=== PATIENT | male | born 1970 | race Caucasian/White ===

== ENCOUNTER → 2020-02-11 12:33 | Outpatient (BNVA) | payer SELFPAY | PROVIDERS: Visit Provider Internal Medicine | DX: Z13.89 Encounter for screening for other disorder (principal) | CPT/HCPCS: 99211 ==

== ENCOUNTER → 2020-03-10 12:55 | Outpatient (BNVA) | payer SELFPAY | PROVIDERS: Visit Provider Internal Medicine | DX: Z76.89 Persons encountering health services in other specified circumstances (principal) ==

== ENCOUNTER → 2020-04-13 14:31 | Outpatient (BNVA) | payer OTHER, SELFPAY | PROVIDERS: PCP Internal Medicine; Visit Provider Internal Medicine | DX: Z76.89 Persons encountering health services in other specified circumstances (principal) ==

== ENCOUNTER → 2020-05-27 11:28 | Outpatient (BNVA) | payer OTHER, SELFPAY | PROVIDERS: Visit Provider Internal Medicine | DX: Z51.81 Encounter for therapeutic drug level monitoring (principal) | CPT/HCPCS: 80305 ==

== ENCOUNTER → 2020-06-24 13:40 | Outpatient (BNVA) | payer OTHER, SELFPAY | PROVIDERS: Visit Provider Internal Medicine ==

== ENCOUNTER → 2020-08-19 10:24 | Outpatient (BNVA) | payer OTHER, SELFPAY | PROVIDERS: Visit Provider Internal Medicine | DX: F11.99 Opioid use, unspecified with unspecified opioid-induced disorder (principal) | CPT/HCPCS: 80305 ==

== ENCOUNTER → 2020-09-20 09:26 | Outpatient (BNVA) | payer OTHER, SELFPAY | PROVIDERS: PCP Internal Medicine; Visit Provider Internal Medicine | DX: Z51.81 Encounter for therapeutic drug level monitoring (principal); F11.99 Opioid use, unspecified with unspecified opioid-induced disorder | CPT/HCPCS: 80305 ==

== ENCOUNTER → 2020-10-26 10:05 | Outpatient (BNVA) | payer OTHER, SELFPAY | PROVIDERS: PCP Internal Medicine; Visit Provider Internal Medicine | DX: F11.99 Opioid use, unspecified with unspecified opioid-induced disorder (principal); Z51.81 Encounter for therapeutic drug level monitoring | CPT/HCPCS: 80305; 96372; Q9992 ==

== ENCOUNTER → 2020-11-30 09:44 | Outpatient (BNVA) | payer OTHER, SELFPAY | PROVIDERS: Visit Provider Internal Medicine | DX: F11.90 Opioid use, unspecified, uncomplicated (principal); Z51.81 Encounter for therapeutic drug level monitoring | CPT/HCPCS: 80305; 96372 ==

== ENCOUNTER → 2021-01-10 10:06 | Outpatient (BNVA) | payer OTHER, SELFPAY | PROVIDERS: Visit Provider Internal Medicine | DX: F11.90 Opioid use, unspecified, uncomplicated (principal) | CPT/HCPCS: 80305; 96372 ==

== ENCOUNTER 2021-05-22 03:15 | Emergency (ER) | payer OTHER, SELFPAY ==
[2021-05-22 03:22] VITALS: BMI 30.9
[2021-05-22 03:37] VITALS: BP 120/84; PULSE 94; RESP 16; TEMP 37.1; O2SAT 96
--- NOTE | 2021-05-22 03:56 | PC.NURSE ---
PATIENT REFUSING TO SPEAK WITH PROVIDER STATING THAT HE WANTS A COPY OF HIS MEDICAL RECORDS AND A COPY OF THE SECTION 12 HOLDING HIM HERE. REFUSING TO TALK TO STAFF MEMBERS UNTIL DEMANDS ARE MET. PROVIDER STATING WILL REATTEMPT EVALUATION WITH PATIENT
[2021-05-22 04:00] VITALS: RESP 16
--- NOTE | 2021-05-22 04:06 | ED.PSYCH ---
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 On speaking with the patient he states that he was recently fired for ?no reason? and since that time has been feeling upset about the situation and then was drinking yesterday. He states that all he was trying to do was speak with his because he wanted to discuss things with her and that she just kept telling him just go to sleep. Patient states that his had left the house and so they were texting. He states that when she told him to go to sleep in he realized that she was not going to talk to him he became upset and states that he said ?a, B, and C? and then the next thing he knew the police were at his door. Patient states that he made comments because he was upset and now he feels better and he just wants to go home and go to sleep. He states that he ?knows his rights and knows that the Section 12 that was 1st given was only for transport and that he wants to go home?. I explained to him that since he had made statements regarding wanting to hurt himself that I would like for him to stay until crisis concede him in the morning. Patient became increasingly upset and continue to repeat ?I know my rights, I want a see a copy of that Section 12?. When attempts were made to explain to him that we needed to exercise additional precautions, he stated he no longer wanted to speak to me and when asked about his past medical history or allergies he declined to answer. On review of the triage note as well as the Section 12 it is noted that the text that he sent his stated ?I hate you wall and I am going to put a 16 gauge in my BRIANA and bleed out?. In addition, it is reported that patient was aggressive with the police when they arrived. Of note, this aggression with the police was not noticed on arrival here to the emergency department. Related Data Home Medications Medication Instructions Recorded Confirmed dulaglutide 1.5 mg/0.5 mL 1.5 mg SUBCUT QWEEK 08/19/20 05/22/21 subcutaneous pen injector escitalopram oxalate 20 mg tablet 20 mg PO QAM 08/19/20 05/22/21 labetalol 200 mg tablet 200 mg PO BID 08/19/20 05/22/21 metformin 500 mg tablet 1,000 mg PO BID 08/19/20 05/22/21 trazodone 100 mg tablet 200 mg PO BEDTIME PRN 08/19/20 09/21/20 Previous Rx's Medication Instructions Recorded buprenorphine 8 mg-naloxone 2 mg See Rx Instructions SUBLINGUAL 08/30/20 sublingual film (Suboxone) DAILY 30 Days #30 ea buprenorphine 300 mg/1.5 mL 300 mg (1.5 mL) SUBCUT ONCE 30 09/20/20 solution,exten.rel.subcutaneous Days #1.5 ml syringe (Sublocade) buprenorphine 100 mg/0.5 mL 100 mg (0.5 mL) SUBCUT ONCE 30 01/10/21 solution,exten.rel.subcutaneous Days #0.5 ml syringe (Sublocade) Allergies Allergy/AdvReac Type Severity Reaction Status Date / Time No Known Allergies Allergy Verified 01/10/21 10:20 [No Known Allergies*] Review of Systems Review of Systems: Pertinent positives and negatives as stated in HPI 10 point review of systems is otherwise negative. PMFSH Past Medical History Source: nursing notes reviewed Medical History Opioid use disorder Social History Social History Alcohol intake: current Patient Tobacco Use Status: Never used Tobacco Use of substances other than those prescribed or required for medical reasons: No Advance Directives: No Physical Exam Vital Signs: Vital Signs: Last Vital Signs Temp 98.7 F 05/22/21 03:37 Pulse 94 05/22/21 03:37 Resp 16 05/22/21 06:00 BP 120/84 05/22/21 03:37 Pulse Ox 96 05/22/21 03:37 BMI result Body Mass Index 30.9 VITAL SIGNS: Reviewed. GENERAL: Well developed, well nourished, in no acute distress. HEAD: Normocephalic/atraumatic, LUNGS: No audible wheeze, no tachypnea, SpO2<96> CARDIOVASCULAR: Regular rate and rhythm, no JVD or lower extremity edema. ABDOMEN: non-distended MUSCULOSKELETAL: No tenderness, deformities, or effusions noted on gross inspection. EXTREMITIES: No cyanosis, clubbing or edema. SKIN: Inspection of the skin reveals no rashes NEUROLOGIC: Alert and oriented x 4 Psych: Normal affect Course Course Course Narrative: 50-year-old male with history and clinical presentation consistent with recent job loss, alcohol consumption, and threats of suicide. Given the situation in its entirety the decision was made to Section 12 the patient as this is felt to be a highly volatile situation especially given the fact the patient has been consuming alcohol. Physical exam was limited due to patient not wishing to communicate further. Patient was placed on a 1:1. Behavioral consult was placed. Reevaluation(s) Reevaluation #1: Patient placed in physician observation because the patient needed more time for evaluation by crisis. At the time observation was started the patient's vital signs were stable, patient is alert and oriented, neuro: Nonfocal, CV RRR, lungs clear Time: 03:35 Discharge Plan Discharge Clinical Impression: Suicidal ideation, Alcohol intoxication Patient Disposition: Still a Patient Prescriptions: No Action buprenorphine-naloxone [Suboxone] 8-2 mg film See Rx Instructions film sublingual DAILY 30 Days Qty: 30 1RF Rx Instructions: escitalopram oxalate 20 mg tablet 20 mg PO QAM 0RF metformin 500 mg tablet 1,000 mg PO BID 0RF trazodone 100 mg tablet 200 mg PO BEDTIME PRN0RF labetalol 200 mg tablet 200 mg PO BID 0RF Trulicity 1.5 mg/0.5 mL pen injector 1.5 mg subcut QWEEK 0RF Sublocade 300 mg/1.5 mL solution, extended rel syringe 300 mg subcut ONCE 30 Days Qty: 1.5 1RF Sublocade 100 mg/0.5 mL solution, extended rel syringe 100 mg subcut ONCE 30 Days Qty: 0.5 5RF
--- NOTE | 2021-05-22 04:08 | PC.NURSE ---
PATIENT REFUSING BLOOD WORK AND CARE AT THIS TIME. A SITTER IS IN PLACE FOR SAFETY.
[2021-05-22 06:00] VITALS: RESP 16
--- NOTE | 2021-05-22 06:16 | PC.NURSE ---
PATIENT CONTINUES TO REFUSE CARE. PT IS ALERT. ORDERS FOR CARE TEAM CONSULT AND SMART SHEET FOR BHN EVAL SENT. PATIENT CONTNIUES T OREFUSE LAB WORK. SITTTER IN PLACE
[2021-05-22 08:00] VITALS: RESP 16
[2021-05-22 08:04] LABS: MANUAL DIFF FLAG NO
[2021-05-22 08:10] LABS: Basophils Percent Auto 0.4 % (0-2); Eosinophils Absolute Auto 0.3 X10*3/uL (0.0-0.4); Eosinophils Percent Auto 3.4 % (0-4); Hematocrit 39.4 % (42.0-52.0); Hemoglobin 13.6 g/dl (14.0-18.0); Imm Gran Abs Auto 0.02 X10*3/uL (0.00-0.03); Imm Gran Pct Auto 0.3 % (0.0-0.4); Lymphocytes Absolute Auto 3.3 X10*3/uL (1.2-4.9); Lymphocytes Percent Auto 45.1 % (20-40); Mean Corpuscular HGB Conc 34.5 g/dl (31.0-36.0); Mean Corpuscular Hemoglobin 30.2 pg (27.0-33.0); Mean Corpuscular Volume 87.6 fL (80.0-98.0); Mean Platelet Volume 9.5 fL (9.4-12.4); Monocytes Absolute Auto 0.5 X10*3/uL (0.1-1.2); Monocytes Percent Auto 7.4 % (2-11); Neutrophils Absolute Auto 3.2 x10*3/uL (2.0-8.3); Neutrophils Percent Auto 43.4 % (45-73); Platelet Count 137 X10*3/uL (160-400); Red Cell Distribution Width 13.2 % (11.0-16.0); White Blood Count 7.3 X10*3/uL (4.8-10.8)
[2021-05-22 08:21] LABS: COVID-19 Test Negative (Negative)
[2021-05-22 08:25] LABS: Alanine Aminotransferase 24 U/L (0-40); Albumin Level 4.6 g/dL (3.5-5.0); Alkaline Phosphatase 58 U/L (39-117); Anion Gap 12 (12-20); Aspartate Amino Transferase 38 U/L (5-37); Bilirubin Direct 0.2 mg/dL (0.0-0.5); Bilirubin Total 0.4 mg/dL (0.0-1.0); Blood Urea Nitrogen 15 mg/dL (9-16); Calcium 9.5 mg/dL (8.4-10.2); Carbon Dioxide 28 mmol/L (22-29); Chloride 105 mmol/L (96-108); Estimated Glomerular Filt Rate > 60; Glucose Random 95 mg/dL (60-115); Potassium 4.2 mmol/L (3.3-5.1); Sodium 141 mmol/L (135-145); Total Protein 7.8 g/dL (6.5-8.0)
== END 2021-05-22 10:45 | disposition home or self-care (01) ==
PROVIDERS: Emergency Medicine; Emergency Provider Student in an Organized Health Care Education/Training Program
DX: F10.129 Alcohol abuse with intoxication, unspecified (principal); Y90.8 Blood alcohol level of 240 mg/100 ml or more; R45.851 Suicidal ideations; Z20.822 Contact with and (suspected) exposure to COVID-19; Z79.899 Other long term (current) drug therapy
CPT/HCPCS: 80048; 80076; 85025; 87635; 99285

== ENCOUNTER 2024-01-05 22:29 | Inpatient (IN) | payer OTHER, SELFPAY ==
--- NOTE | 2024-01-05 | ECG_ITS ---
Test Reason : overdose Blood Pressure : / mmHG Vent. 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
[2024-01-05 22:46] VITALS: BP 146/90; BP 150/76; PULSE 102; PULSE 82; RESP 20; TEMP 37.2; O2SAT 95; O2SAT 98; BMI 35.3
[2024-01-05 22:52] LABS: MANUAL DIFF FLAG NO
[2024-01-05 22:54] LABS: Basophils Percent Auto 0.4 % (0-2); Eosinophils Absolute Auto 0.2 X10*3/uL (0.0-0.4); Eosinophils Percent Auto 2.6 % (0-4); Hematocrit 42.7 % (42.0-52.0); Hemoglobin 15.9 g/dl (14.0-18.0); Imm Gran Abs Auto 0.02 X10*3/uL (0.00-0.03); Imm Gran Pct Auto 0.3 % (0.0-0.4); Lymphocytes Absolute Auto 2.8 X10*3/uL (1.2-4.9); Lymphocytes Percent Auto 40.5 % (20-40); Mean Corpuscular HGB Conc 37.2 g/dl (31.0-36.0); Mean Corpuscular Hemoglobin 31.6 pg (27.0-33.0); Mean Corpuscular Volume 84.9 fL (80.0-98.0); Mean Platelet Volume 10.5 fL (9.4-12.4); Monocytes Absolute Auto 0.6 X10*3/uL (0.1-1.2); Monocytes Percent Auto 7.9 % (2-11); Neutrophils Absolute Auto 3.3 x10*3/uL (2.0-8.3); Neutrophils Percent Auto 48.3 % (45-73); Platelet Count 164 X10*3/uL (160-400); Red Blood Count 5.03 X10*6/uL (4.60-5.80); White Blood Count 6.9 X10*3/uL (4.8-10.8)
[2024-01-05 23:16] LABS: Acetaminophen LAB < 3 mcg/mL (<30); Salicylate < 5.0 mg/dL (15-30)
[2024-01-05 23:17] LABS: Alanine Aminotransferase 35 U/L (0-40); Albumin Level 4.7 g/dL (3.5-5.0); Alkaline Phosphatase 69 U/L (39-117); Anion Gap 21 (12-20); Aspartate Amino Transferase 32 U/L (5-37); Bilirubin Total 0.2 mg/dL (0.0-1.0); Blood Urea Nitrogen 18 mg/dL (9-16); Calcium 9.1 mg/dL (8.4-10.2); Carbon Dioxide 20 mmol/L (22-29); Chloride 102 mmol/L (96-108); Creatinine Clr Calc Pharmacy 73.4; Estimated Glomerular Filt Rate 47; Ethanol 157 mg/dL; Glucose Random 353 mg/dL (60-115); Potassium 4.1 mmol/L (3.3-5.1); Sodium 139 mmol/L (135-145); Total Protein 8.6 g/dL (6.5-8.0)
[2024-01-05 23:22] VITALS: BP 119/56; PULSE 103; RESP 18; O2SAT 96
--- NOTE | 2024-01-05 23:45 | ED_ITS ---
HPI - Overdose General Chief Complaint: Overdose Stated Complaint: SI,ETOH,trazadone,&labatolol unkwn amounts, sec 12 Time Seen by Provider: 01/05/24 23:30 Source: patient Mode of arrival: EMS Limitations: no limitations History of Present Illness ED Provider: Dr. Reji Funes HPI Narrative: 53-year-old male with a history of insulin-dependent diabetes mellitus, hypertension, GERD, depression, anxiety he was brought to emergency department on a section 12 for suicidal attempt by prescription medication overdose and suicide by police. The patient states that he was been under increased stress for months secondary to social stressors and work stressors. 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 He states that yesterday was his birthday and he had a very good day. He states that today he was having a good day and wanted to do some things with his grandchildren but his disagreed with his plan. He states this made him upset . He states he then said some things to his that he regrets but he does not want to repeat the statements at this time. He then left and started drinking alcohol. He states that he was trying to contact his but his phone calls kept going to [employer] . He states that this push his buttons and made him very upset. When he got home, he took a bottle of his [id number]-nw-kje's trazodone which were 50 mg pills . He states that he tipped the bottle into his mouth and took a big swallow of whiskey. He states that he coughed up most of the pills. Initially it was reported that he may took an overdose of labetalol 200 mg pills as well but he states he did not take this medication. He then took a shovel and smashed up his house breaking multiple pieces of glass.. He states that he did step on some glass, he feels like there is glass in his left heel. He then took a knife and went outside. He states his intention was to be shot by the police because he wanted to . He states that he recognized the police officers and these were office that he worked with so he changed his mind. However, he would not drop the knife and the police shot him in the left lower chest/upper abdomen with a ellis bag gun. He states that this did not cause him drop the knife, it made him angry and he walked back inside his home. He eventually surrendered to the police and was brought to emergency department on a Section 12. Patient states that he does take insulin for his diabetes but he was noncompliant. He states that his glucose is usually in the 300-400 range. The patient does drink alcohol on a regular basis and states that he will drink at least a 6 pack of beer on days when he was not working. 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 Patient states that he was remorseful at this time and does want to get help for his depression anxiety and suicidal ideation. Related Data Home Medications ?Medication ?Instructions ?Recorded ?Confirmed dulaglutide 1.5 mg/0.5 mL 1.5 mg subcut QWEEK 08/19/20 05/22/21 subcutaneous pen injector escitalopram oxalate 20 mg tablet 20 mg PO QAM 08/19/20 05/22/21 labetalol 200 mg tablet 200 mg PO BID 08/19/20 05/22/21 metformin 500 mg tablet 1,000 mg PO BID 08/19/20 05/22/21 trazodone 100 mg tablet 200 mg PO BEDTIME PRN 08/19/20 09/21/20 Previous Rx's ?Medication ?Instructions ?Recorded buprenorphine 8 mg-naloxone 2 mg See Rx Instructions sublingual 08/30/20 sublingual film (Suboxone) DAILY 30 days #30 ea buprenorphine 300 mg/1.5 mL 300 mg (1.5 mL) subcut ONCE 30 09/20/20 solution,exten.rel.subcutaneous days #1.5 mL syringe (Sublocade) buprenorphine 100 mg/0.5 mL 100 mg (0.5 mL) subcut ONCE 30 01/10/21 solution,exten.rel.subcutaneous days #0.5 mL syringe (Sublocade) Allergies Allergy/AdvReac Type Severity Reaction Status Date / Time No Known Allergies Allergy Verified 01/05/24 22:53 [No Known Allergies*] Review of Systems 2 Review of Systems: Yes all other systems are reviewed and are negative [facility] Past Medical History [facility] Narrative: Social history: He was . 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 He denies tobacco use. He does drink alcohol on a regular basis and drinks up to a 6 pack of beer per day with other alcoholic beverages as well. He does have a history of oxycodone addiction 3 years prior but he states that he was no longer addicted to this medication. He states that he stopped using intranasal cocaine several months ago. He does occasionally take a marijuana gummy. He does admit to drinking alcohol this evening. Medical History Opioid use disorder Social History Social History Alcohol intake: current Alcohol type: beer, wine and hard liquor Patient Tobacco Use Status: Never used Tobacco Smoked in Last 30 Days: Yes Use of substances other than those prescribed or required for medical reasons: No Advance Directives: No Advance Directives Information Provided: Yes Do you have a plan to hurt others: No Plan Physical Exam 2 Vital Signs: Vital Signs: Last Vital Signs Temp 98.1 F 01/06/24 05:20 Pulse 88 01/06/24 05:20 Resp 17 01/06/24 05:20 BP 127/78 01/06/24 05:20 Pulse Ox 97 01/06/24 05:20 O2 Del Method Room Air 01/06/24 05:20 BMI result Body Mass Index 35.3 Vital signs revealed an elevated heart rate of 103 otherwise unremarkable Exam: General: Awake, alert in no distress, he was remorseful and expresses regret about what he did this evening. At times when he talks about his stressors he did become tearful. Head: Normocephalic, atraumatic EENT: PERRL, Lids normal, sclera normal, conjunctiva normal, nose normal , ears normal, throat without erythema or exudates Neck: Supple, no adenopathy Lung: breath sounds symmetric, no wheezing, rales or rhonchi Chest: symmetric movement, nontender Heart: regular rate and rhythm, normal S1, S2 no murmurs or rubs Abdomen: soft, non-tender, nondistended, normal bowel sounds. The patient does have an abrasion to his left upper abdomen with no tenderness in this area. This abrasion is secondary to the ellis bag that was fired at him by the police. Back: no vertebral tenderness, no CVAT Extremities: no deformities, moves all extremities symmetrically. The patient does have a small puncture wound to his left heel which may have a piece of glass in it. Neuro: Awake, alert, oriented, normal speech, cranial nerves intact, moves all extremities symmetrically Psych: Pleasant, cooperative Medications Administered Discontinued Medications Generic Name Dose Route Start Last Admin Trade Name Marlen PRN Reason Stop Dose Admin Sodium Chloride 1,000 mls @ 999 mls/hr 01/05/24 23:46 01/06/24 00:56 Ns IV 01/06/24 00:46 999 mls/hr .Q1H1M STA Administration Insulin Human Lispro 0 unit 01/06/24 00:00 01/06/24 01:10 Insulin Lispro 100 Unit/Ml 3 Ml Vial SUBCUT 01/06/24 00:01 6 unit Q6H DIPAK Administration Protocol Lidocaine HCl 5 ml 01/05/24 23:47 01/06/24 07:49 Lidocaine Hcl 1 % Mpf 5 Ml Vial INFILTRATI 01/05/24 23:48 Not Given ONCE STA Procedures Procedure Narrative Procedure Narrative: Foreign body removal (glass) from left heel I did explain the procedure to the patient gave me informed verbal consent to proceed. The area of the left heel where the foreign body was felt by the patient was prepped with Betadine and anesthetized 1% lidocaine x3 cc using a #11scalpel and made a small incision over this area and with forceps I was able to extract a small piece of glass. The area was irrigated and a dry dressing was applied. The patient tolerated the procedure well. Medical Decision Making Medical Decision Making MDM Narrative: 53-year-old male with a history of insulin-dependent diabetes mellitus, hypertension, GERD, depression, anxiety he was brought to emergency department on a section 12 for suicidal attempt by prescription medication overdose and suicide by police. Patient may took an overdose of trazodone 50 mg pills, unknown quantity proximally 2 hours prior to coming to the emergency department. Vital signs revealed elevated heart rate otherwise unremarkable. The patient's physical exam did reveal an abrasion to his left upper abdomen secondary to the ellis bag that was fired at him by the police. He also may have a piece of glass in his left heel secondary to the glass that he smashed with a shovel when he was at home. Differential diagnosis: ?Includes but is not limited to trazodone overdose, labetalol overdose, alcohol intoxication, polysubstance use, suicidal ideation, hyperglycemia secondary to noncompliance with insulin, dehydration, electrolyte abnormalities, anemia Course: 00:18 Start physician observation My interpretation patient's laboratory evaluation as follows: CBC was normal. CMP revealed low bicarb of 20, anion gap of 21, elevated BUN 58, elevated creatinine 1.56, elevated glucose 353. These abnormalities are consistent with his elevated glucose and noncompliance with his insulin. Initial Tylenol and salicylates were below detectable limits. Ethanol level was elevated above the intoxication range at 157. I did speak to poison control and they recommended cardiac and O2 saturation monitoring for potential life-threatening arrhythmias, bradycardia, somnolence, respiratory depression. Therefore the patient will need to be monitored for 6 hours in the emergency department. Patient was also police on a one-to-one observation due to his suicidal ideation. 07:58 Physician observation continued. The patient had no significant lethargy or arrhythmias during the 6 hours of cardiac and pulse oximetry monitoring. The patient was medically cleared and the care team did evaluate the patient. According the patient he was given a choice of doing a partial intensive outpatient program versus inpatient and the patient elected to pursue inpatient care. Therefore the patient will be kept on a Section 12 and will remain in the emergency department until an appropriate inpatient bed can be found. Patient did have a small piece of glass in his left heel that was removed by me. Patient was not know when his last tetanus was given therefore he was given Tdap vaccination in the emergency department. At the end of my shift, the patient's care was turned over to my colleague, Dr. Wooten Admission/Observation Consideration of admission/observation: Escalation of care including admission/observation considered (Yes) Lab Data MDM Lab Attestation statement: I reviewed the patient's lab results. 01/05/24 22:47 01/05/24 22:47 Labs: Lab Results 01/05/24 01/06/24 01/06/24 Range/Units 22:47 00:59 02:14 WBC 6.9 (4.8-10.8) X10*3/uL RBC 5.03 (4.60-5.80) X10*6/uL Hgb 15.9 (14.0-18.0) g/dl Hct 42.7 (42.0-52.0) % MCV 84.9 (80.0-98.0) fL MCH 31.6 (27.0-33.0) pg MCHC 37.2 H (31.0-36.0) g/dl RDW 12.0 (11.0-16.0) % Plt Count 164 (160-400) X10*3/uL MPV 10.5 (9.4-12.4) fL Immature Gran % (Auto) 0.3 (0.0-0.4) % Neut % (Auto) 48.3 (45-73) % Lymph % (Auto) 40.5 H (20-40) % Wilkinson % (Auto) 7.9 (2-11) % Eos % (Auto) 2.6 (0-4) % Baso % (Auto) 0.4 (0-2) % Lymph # (Auto) 2.8 (1.2-4.9) X10*3/uL Wilkinson # (Auto) 0.6 (0.1-1.2) X10*3/uL Eos # (Auto) 0.2 (0.0-0.4) X10*3/uL Baso # (Auto) 0.0 (0.0-0.2) X10*3/uL Abs Immat Gran (auto) 0.02 (0.00-0.03) X10*3/uL Absolute Neuts (auto) 3.3 (2.0-8.3) x10*3/uL Absolute Nucleated RBC 0.000 (0.0-0.012) X10*3/uL Nucleated RBC % (auto) 0.0 (0.0-0.2) /100WBC Sodium 139 (135-145) mmol/L Potassium 4.1 (3.3-5.1) mmol/L Chloride 102 (96-108) mmol/L Carbon Dioxide 20 L (22-29) mmol/L Anion Gap 21 H (12-20) BUN 18 H (9-16) mg/dL Creatinine 1.56 H (0.5-1.4) mg/dL Estim Creat Clear Calc 73.4 Estimated GFR 47 POC Glucose 297 H (60-115) mg/dL Random Glucose 353 H* (60-115) mg/dL Calcium 9.1 (8.4-10.2) mg/dL Magnesium 2.2 (1.6-2.6) mg/dL Total Bilirubin 0.2 (0.0-1.0) mg/dL AST 32 (5-37) U/L ALT 35 (0-40) U/L Alkaline Phosphatase 69 (39-117) U/L Total Protein 8.6 H (6.5-8.0) g/dL Albumin 4.7 (3.5-5.0) g/dL Salicylates < 5.0 L (15-30) mg/dL Urine Opiates Screen (Not Detect) Ur Buprenorphine Scrn (Not Detect) ng/mL Ur Oxycodone Screen (Not Detect) ng/mL Urine Methadone Screen (Not Detect) ng/mL Urine Fentanyl Screen (Not Detect) Acetaminophen < 3 (<30) mcg/mL Ur Barbiturates Screen (Not Detect) Ur Phencyclidine Scrn (Not Detect) Ur Amphetamines Screen (Not Detect) U Benzodiazepines Scrn (Not Detect) Urine Cocaine Screen (Not Detect) U Marijuana (THC) Screen (Not Detect) Ethyl Alcohol 157 mg/dL Influenza Type A (PCR) NEGATIVE (Negative) Influenza Type B (PCR) NEGATIVE (Negative) RSV RNA Qual (PCR) NEGATIVE (Negative) SARS-CoV-2 RNA (RT-PCR) NEGATIVE (Negative) 01/06/24 Range/Units 02:16 WBC (4.8-10.8) X10*3/uL RBC (4.60-5.80) X10*6/uL Hgb (14.0-18.0) g/dl Hct (42.0-52.0) % MCV (80.0-98.0) fL MCH (27.0-33.0) pg MCHC (31.0-36.0) g/dl RDW (11.0-16.0) % Plt Count (160-400) X10*3/uL MPV (9.4-12.4) fL Immature Gran % (Auto) (0.0-0.4) % Neut % (Auto) (45-73) % Lymph % (Auto) (20-40) % Wilkinson % (Auto) (2-11) % Eos % (Auto) (0-4) % Baso % (Auto) (0-2) % Lymph # (Auto) (1.2-4.9) X10*3/uL Wilkinson # (Auto) (0.1-1.2) X10*3/uL Eos # (Auto) (0.0-0.4) X10*3/uL Baso # (Auto) (0.0-0.2) X10*3/uL Abs Immat Gran (auto) (0.00-0.03) X10*3/uL Absolute Neuts (auto) (2.0-8.3) x10*3/uL Absolute Nucleated RBC (0.0-0.012) X10*3/uL Nucleated RBC % (auto) (0.0-0.2) /100WBC Sodium (135-145) mmol/L Potassium (3.3-5.1) mmol/L Chloride (96-108) mmol/L Carbon Dioxide (22-29) mmol/L Anion Gap (12-20) BUN (9-16) mg/dL Creatinine (0.5-1.4) mg/dL Estim Creat Clear Calc Estimated GFR POC Glucose (60-115) mg/dL Random Glucose (60-115) mg/dL Calcium (8.4-10.2) mg/dL Magnesium (1.6-2.6) mg/dL Total Bilirubin (0.0-1.0) mg/dL AST (5-37) U/L ALT (0-40) U/L Alkaline Phosphatase (39-117) U/L Total Protein (6.5-8.0) g/dL Albumin (3.5-5.0) g/dL Salicylates (15-30) mg/dL Urine Opiates Screen Not Detected (Not Detect) Ur Buprenorphine Scrn Not Detected (Not Detect) ng/mL Ur Oxycodone Screen Not Detected (Not Detect) ng/mL Urine Methadone Screen Not Detected (Not Detect) ng/mL Urine Fentanyl Screen Not Detected (Not Detect) Acetaminophen (<30) mcg/mL Ur Barbiturates Screen Not Detected (Not Detect) Ur Phencyclidine Scrn Not Detected (Not Detect) Ur Amphetamines Screen Not Detected (Not Detect) U Benzodiazepines Scrn Not Detected (Not Detect) Urine Cocaine Screen Not Detected (Not Detect) U Marijuana (THC) Screen Not Detected (Not Detect) Ethyl Alcohol mg/dL Influenza Type A (PCR) (Negative) Influenza Type B (PCR) (Negative) RSV RNA Qual (PCR) (Negative) SARS-CoV-2 RNA (RT-PCR) (Negative) Independent Interpretation I performed an independent interpretation of an: EKG Interpretation: My independent interpretation patient's 12 EKG done at 22:51 hours is as follows: Normal sinus rhythm rate of 99, normal [place] interval, QRS duration, slightly prolonged QTC of [address] segment elevation, no ST segment depression, no significant T-wave abnormalities, no PACs, no PVCs Independent Historian Clinical information obtained from an independent historian. History obtained from or confirmed by: Spouse Chronic Conditions Patient?s care impacted by: Other (Diabetes mellitus) Critical Care Time Critical Care Time Critical Care Time: Yes Total Critical Care Time: 45 Attestation: Critical Care: The patient was critically ill with a high probability of imminent or life threatening deterioration. I spent greater than 30 minutes of discontinuous time evaluating the patient,delivering critical care at the bedside, discussing and evaluating pertinent data with consultants. Critical care time does not include time spent performing separately billable procedures or teaching. Total time spent performing critical care was 45 minutes. Discharge Plan Discharge Clinical Impression: Suicidal ideation Patient Disposition: Still a Patient Prescriptions: No Action buprenorphine-naloxone [Suboxone] 8-2 mg film See Rx Instructions sublingual DAILY 30 Days Qty: 30 1RF Rx Instructions: escitalopram oxalate 20 mg tablet 20 mg PO QAM metformin 500 mg tablet 1,000 mg PO BID trazodone 100 mg tablet 200 mg PO BEDTIME PRN labetalol 200 mg tablet 200 mg PO BID Trulicity 1.5 mg/0.5 mL pen injector 1.5 mg subcut QWEEK Sublocade 300 mg/1.5 mL solution, extended rel syringe 300 mg subcut ONCE 30 Days Qty: 1.5 1RF Sublocade 100 mg/0.5 mL solution, extended rel syringe 100 mg subcut ONCE 30 Days Qty: 0.5 5RF Print Language: Romanian
[2024-01-06] VITALS (7 sets, daily range): BP systolic 109–146; BP diastolic 60–98; PULSE 80–99; RESP 16–18; TEMP 36.5–37.1; O2SAT 95–98
[2024-01-06] MEDS: 0.9 % Sodium Chloride 1,000 ML 999 ML IV (00:56)
[2024-01-06 01:02] LABS: Magnesium 2.2 mg/dL (1.6-2.6)
[2024-01-06 01:06] LABS: Glucose, Whole Blood 297 mg/dL (60-115)
[2024-01-06] MEDS: Insulin Lispro 100 UNIT/ML 3 ML VIAL SUBCUT ×3 (01:10→22:27)
[2024-01-06 02:33] LABS: Amphetamine Screen Urine Not Detected (Not Detect); Barbiturates, Urine Not Detected (Not Detect); Benzodiazepines Screen Urine Not Detected (Not Detect); Buprenorphine Scr Not Detected (Not Detect); Cannabinoid Screen Urine Not Detected (Not Detect); Cocaine Screen Urine Not Detected (Not Detect); Fentanyl, urine Not Detected (Not Detect); Methadone Screen, Urine Not Detected (Not Detect); Opiate Screen Urine Not Detected (Not Detect); Oxycodone Screen Urine Not Detected (Not Detect); Phencyclidine Screen Urine Not Detected (Not Detect)
[2024-01-06 02:58] LABS: Influenza A PCR NEGATIVE (Negative); Influenza B PCR NEGATIVE (Negative); Resp Syncy Virus RNA Qual PCR NEGATIVE (Negative); SARS COV2 PCR INHOUSE NEGATIVE (Negative)
--- NOTE | 2024-01-06 08:25 | PC.NURSE ---
sleeping. skin pwd. chest rise noted, sitter assigned
--- NOTE | 2024-01-06 08:53 | MHC.EDTECH ---
BELONGINGS IN [place] CLOS[facility] C6
[2024-01-06 12:08] LABS: Glucose, Whole Blood 328 mg/dL (60-115)
[2024-01-06] MEDS: Diphth,Pertus(ACell),Tet Adult 0.5 ML SYRINGE IM (12:08)
--- NOTE | 2024-01-06 12:12 | PC.NURSE ---
calm and cooperative/. denies SI at this time. abrasion left upper abd. axox3. reflecting on life. remorseful. aware of plan of care.
[2024-01-06 13:38] LABS: Glucose, Whole Blood 306 mg/dL (60-115)
[2024-01-06] MEDS: Insulin Lispro 100 UNIT/ML 3 ML VIAL 8 UNIT SUBCUT (14:21)
--- NOTE | 2024-01-06 15:51 | PHA.MEDREC ---
Pharmacy Consult ? Medication Reconciliation Pharmacy has reviewed the medication reconciliation done by nursing. Patient told nurse Jordi Mcdonnell He hasn't took Trulicity in a year, however there was a claim for Trulicity 1.5mg from 01/05/24. Lantus is 20 units QHS and Pantoprazole 40 mg patient said he takes Once a day, claim states BID.
--- NOTE | 2024-01-06 16:10 | MHC.EDTECH ---
at this time pt visitor brought in belongings and food for pt. Duffel bag was inspected for contraband and food placed in pt fridge. Duffel bag contained toiletries and clothing, and locked in closet
[2024-01-06] MEDS: FLUoxetine HCl 20 MG CAPSULE PO (18:30)
[2024-01-06 18:54] LABS: Glucose, Whole Blood 393 mg/dL (60-115)
--- NOTE | 2024-01-06 19:07 | PC.NURSE ---
notified poc of 393, to administer 10 units insulin.
[2024-01-06] MEDS: Omeprazole 20 MG CAPSULE.DR PO (19:27)
[2024-01-06] MEDS: Labetalol HCL 200 MG TABLET PO (19:34)
[2024-01-06] MEDS: traZODone HCL 100 MG TABLET 200 MG PO (21:01)
--- NOTE | 2024-01-06 21:11 | PC.NURSE ---
2 100mg Trazodone were pulled from the pyxis. 1 pill was dropped on the floor and wasted in the pyxis. Pyxis would not let me pull out another pill or override one. Was told by Luis in pharmacy to inventory count pull 1 pill to give to the patient.
[2024-01-06 22:04] LABS: Glucose, Whole Blood 311 mg/dL (60-115)
[2024-01-07 06:00] VITALS: BP 121/81; PULSE 57; RESP 18; TEMP 37.2; O2SAT 97
--- NOTE | 2024-01-07 06:19 | PC.NURSE ---
Pt slept through the night. Calm and cooperative with staff. Awaiting bed placement
[2024-01-07] MEDS: Omeprazole 20 MG CAPSULE.DR PO ×2 (06:23→17:19)
--- NOTE | 2024-01-07 07:05 | PC.NURSE ---
Assumed care of PT a 0645. At this time the PT is observed to be resting quietly in their bed. No distress observed, breathing is even and unlabored.
[2024-01-07 07:29] LABS: Glucose, Whole Blood 269 mg/dL (60-115)
[2024-01-07] MEDS: Insulin Lispro 100 UNIT/ML 3 ML VIAL SUBCUT ×4 (07:47→21:23)
[2024-01-07 08:55] LABS: Anion Gap 13 (12-20); Blood Urea Nitrogen 16 mg/dL (9-16); Calcium 9.2 mg/dL (8.4-10.2); Carbon Dioxide 26 mmol/L (22-29); Chloride 105 mmol/L (96-108); Creatinine Clr Calc Pharmacy 93.1; Estimated Glomerular Filt Rate > 60; Glucose Random 295 mg/dL (60-115); Potassium 4.1 mmol/L (3.3-5.1); Sodium 140 mmol/L (135-145)
[2024-01-07] MEDS: FLUoxetine HCl 20 MG CAPSULE PO (10:43)
[2024-01-07 12:09] VITALS: BP 157/93; PULSE 78; RESP 18; TEMP 37; O2SAT 95
[2024-01-07 12:22] VITALS: BMI 33.6
[2024-01-07 12:35] LABS: Glucose, Whole Blood 388 mg/dL (60-115)
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
[2024-01-07 16:41] LABS: Glucose, Whole Blood 324 mg/dL (60-115)
[2024-01-07] MEDS: Flu Vacc TS2024-25(6mos up)/PF 0.5 ML SYRINGE IM (17:26)
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
[2024-01-07 20:58] LABS: Glucose, Whole Blood 306 mg/dL (60-115)
[2024-01-07 22:33] VITALS: BP 125/80; PULSE 77; RESP 16; TEMP 37.1; O2SAT 96
[2024-01-07] MEDS: Labetalol HCL 200 MG TABLET PO (22:35)
[2024-01-07] MEDS: traZODone HCL 100 MG TABLET 200 MG PO (22:36)
[2024-01-07] MEDS: Insulin Glargine,Hum.rec.anlog 100 UNIT/ML 10 ML VIAL 20 UNIT SUBCUT (22:36)
[2024-01-08 07:25] VITALS: BP 112/70; PULSE 65; RESP 16; TEMP 36.8
[2024-01-08 07:44] VITALS: O2SAT 95
[2024-01-08 07:52] LABS: Glucose, Whole Blood 261 mg/dL (60-115)
[2024-01-08] MEDS: FLUoxetine HCl 20 MG CAPSULE 40 MG PO (08:08)
[2024-01-08] MEDS: Labetalol HCL 200 MG TABLET PO ×2 (08:08→21:43)
[2024-01-08] MEDS: Omeprazole 20 MG CAPSULE.DR PO ×2 (08:08→17:14)
[2024-01-08] MEDS: buPROPion HCl XL 150 MG TAB.ER.24H PO (08:08)
[2024-01-08] MEDS: Insulin Lispro 100 UNIT/ML 3 ML VIAL SUBCUT ×4 (08:09→21:39)
[2024-01-08 11:50] LABS: Glucose, Whole Blood 272 mg/dL (60-115)
--- NOTE | 2024-01-08 14:31 | HO.PSYCHPN ---
Subjective Subjective Date of Service: 01/08/24 Reason For Visit: SI Interim History: pleasant, cooperative. long discussion re psychopharm re clonidine, prazosin, doxazosin. pt ageres to doxazosin trial. plan to modify labetolol and trazodone as indicated. tolerating med changes thus far without issue. denies alcohol withdrawal Sx, agrees with plan to DC CIWA protocol and ativan PRNs. per staff, no issues overnight. Mental Status Exam Mental Status Exam Narrative: adequately dressed and groomed. substantial alicia growth. cooperative, no PMA/PMR. speech incr rate and amount. nml loudness, tone. decr latency. thoughts linear and logical for the most part. affect constricted, normo-intense, non-labile. mood sad. no SI/SIBI/HI/AVH expressed. Diagnostics Vital Signs (24Hr): Vital Signs - 24 hr 01/07/24 22:33 01/08/24 07:25 01/08/24 07:44 Temperature 98.7 F 98.2 F Pulse Rate 77 65 Respiratory Rate 16 16 Blood Pressure 125/80 112/70 Pulse Oximetry 96 95 Oxygen Delivery Method Room Air Room Air BMI result Body Mass Index 33.6 Labs 01/05/24 22:47 01/07/24 07:56 Labs: Laboratory Results - last 48 hr 01/06/24 01/06/24 01/07/24 18:47 21:58 07:26 Sodium Potassium Chloride Carbon Dioxide Anion Gap BUN Creatinine Estim Creat Clear Calc Estimated GFR POC Glucose 393 H* 311 H 269 H Random Glucose Calcium 01/07/24 01/07/24 01/07/24 07:56 12:31 16:38 Sodium 140 Potassium 4.1 Chloride 105 Carbon Dioxide 26 Anion Gap 13 BUN 16 Creatinine 1.23 Estim Creat Clear Calc 93.1 Estimated GFR > 60 POC Glucose 388 H* 324 H Random Glucose 295 H Calcium 9.2 01/07/24 01/08/24 01/08/24 20:33 07:39 11:46 Sodium Potassium Chloride Carbon Dioxide Anion Gap BUN Creatinine Estim Creat Clear Calc Estimated GFR POC Glucose 306 H 261 H 272 H Random Glucose Calcium Medications Medications Current Medications Acetaminophen (Acetaminophen 325 Mg Tablet) 650 mg PO Q6H PRN PRN Reason: Headache/Pain Mild Scale (1-3) Al Hydroxide/Mg Hydroxide (Magnesium Hydrox/Alum Hydrox 30 Ml Oral.Susp) 30 ml PO Q6H PRN PRN Reason: Heartburn/Nausea Bupropion HCl (Bupropion Hcl Xl 150 Mg Tab.Er.24h) 150 mg PO DAILY [facility] Last Admin: 01/08/24 08:08 Dose: 150 mg Doxazosin Mesylate (Doxazosin Mesylate 1 Mg Tablet) 1 mg PO BEDTIME [facility]; Protocol Fluoxetine HCl (Fluoxetine Hcl 20 Mg Capsule) 40 mg PO DAILY [facility] Last Admin: 01/08/24 08:08 Dose: 40 mg Glucose (Glucose Gel 15 Gm Gel..Gram.) 15 gm PO Q15M PRN; Protocol PRN Reason: per Hypoglycemia Standing Ord. Glucose (Glucose Gel 15 Gm Gel..Gram.) 15 gm PO Q15M PRN; Protocol PRN Reason: per Hypoglycemia Standing Ord. Hydroxyzine HCl (Hydroxyzine Hcl 25 Mg Tablet) 25 mg PO Q6H PRN PRN Reason: Anxiety Insulin Glargine (Insulin Glargine,Hum.Rec.Anlog 100 Unit/Ml 10 Ml Vial) 20 unit SUBCUT BEDTIME [facility] Last Admin: 01/07/24 22:36 Dose: 20 unit Insulin Human Lispro (Insulin Lispro 100 Unit/Ml 3 Ml Vial) 0 unit SUBCUT QIDACHS [facility]; Protocol Last Admin: 01/08/24 12:13 Dose: 6 unit Labetalol HCl (Labetalol Hcl 200 Mg Tablet) 200 mg PO BID [facility]; Protocol Last Admin: 01/08/24 08:08 Dose: 200 mg Magnesium Hydroxide (Milk Of Magnesia 30 Ml Oral.Susp) 30 ml PO DAILY PRN PRN Reason: Constipation Nicotine Polacrilex (Nicotine Polacrilex 2 Mg Gum) 4 mg BUCCAL Q2H PRN PRN Reason: Nicotine Cravings Omeprazole (Omeprazole 20 Mg Capsule.Dr) 20 mg PO BID@0630,1630 [facility] Last Admin: 01/08/24 08:08 Dose: 20 mg Trazodone HCl (Trazodone Hcl 100 Mg Tablet) 200 mg PO BEDTIME [facility] Last Admin: 01/07/24 22:36 Dose: 200 mg Trazodone HCl (Trazodone Hcl 50 Mg Tablet) 50 mg PO BEDTIME MRX1 PRN PRN Reason: Insomnia Allergies Allergies Allergy/AdvReac Type Severity Reaction Status Date / Time No Known Allergies Allergy Verified 01/05/24 22:53 [No Known Allergies*] Assessment & Plan Assessment & Plan (1) Major depressive disorder: Status: Acute Code(s): F32.9 - Major depressive disorder, single episode, unspecified (2) PTSD (post-traumatic stress disorder): Status: Acute Code(s): F43.10 - Post-traumatic stress disorder, unspecified (3) Cocaine use disorder: Status: Acute Code(s): F14.10 - Cocaine abuse, uncomplicated (4) Alcohol use disorder: Status: Acute Code(s): F10.90 - Alcohol use, unspecified, uncomplicated Plan 01/06: ativan per [facility] protocol for AUD/withdrawal. increase prozac to 40 mg daily for depression/anxiety. restart wellbutrin XL 150 for depression. T/C use of clonidine, doxazosin, prazosin for PTSD-related Sx. referral for therapy/psychiatry. 01/07: no ativan, no w/drawal Sx. DC CIWA and ativan PRNs. start doxazosin 1 mg QHS. continue Tx as is otherwise. Patient educated on: diagnosis, medication risk/benefits and substance abuse Reason for continued inpatient stay Substantial Risk for: harm to self and harm to others Time Spent With Patient Time: Total time managing care of this patient today _35___ minutes.
[2024-01-08 16:46] LABS: Glucose, Whole Blood 241 mg/dL (60-115)
--- NOTE | 2024-01-08 18:49 | MHC.RECOVSUP ---
? Reason for consult Recovery support o Current location: 319[address]2 o Identified substance use concern: Alcohol - Support ? Intervention: o Community resources provided o Harm reduction discussion ? Plan: o Patient to follow up with [facility] after discharge ? Additional information: Met with Patient and we talked about recovery and different pathways.. We also had a harm reduction talk.. Patient stated that he would like a acetone recovery worker a referral was made
[2024-01-08 20:00] VITALS: BP 145/86; PULSE 74; RESP 16; TEMP 36.4; O2SAT 96
[2024-01-08 20:02] LABS: Glucose, Whole Blood 263 mg/dL (60-115)
[2024-01-08] MEDS: Insulin Glargine,Hum.rec.anlog 100 UNIT/ML 10 ML VIAL 20 UNIT SUBCUT (21:40)
[2024-01-08] MEDS: traZODone HCL 100 MG TABLET 200 MG PO (21:43)
[2024-01-08] MEDS: Doxazosin Mesylate 1 MG TABLET PO (21:43)
[2024-01-09] MEDS: Omeprazole 20 MG CAPSULE.DR PO ×2 (06:46→15:39)
[2024-01-09 07:00] VITALS: BMI 34.2
[2024-01-09 07:41] VITALS: BP 114/64; PULSE 65; RESP 16; TEMP 36.4; O2SAT 97
[2024-01-09] MEDS: buPROPion HCl XL 150 MG TAB.ER.24H PO (08:21)
[2024-01-09] MEDS: Labetalol HCL 200 MG TABLET PO ×2 (08:21→22:18)
[2024-01-09] MEDS: FLUoxetine HCl 20 MG CAPSULE 40 MG PO (08:21)
[2024-01-09] MEDS: Insulin Lispro 100 UNIT/ML 3 ML VIAL SUBCUT ×4 (08:22→22:18)
[2024-01-09 10:04] LABS: Glucose, Whole Blood 250 mg/dL (60-115)
--- NOTE | 2024-01-09 11:08 | MHC.RECOVRN ---
AUDIT-C Brief Intervention Pt had positive screen for unhealthy alcohol use on admission, subsequently met with t/w to discuss alcohol use and recovery supports/options. This automobile service writer met with patient to discuss current alcohol use and concerns related to increased risk of alcohol related problems.? Pt reports inconsistent amounts and use of alcohol. Reports can go long periods of time without drinking, mostly drinks a couple beers on a Saturday night. Reports alcohol use increases when mental health declines or symptoms of depression, anger, or sadness emerge. Pt reports he has used alcohol to cope with negative emotions. Pt reports he is addressing mental health concerns in order to reduce need for alcohol. Pt does not believe he has AUD. Discussed how alcohol use has impacted health, including negative impact on overall mental health. Withdrawal History: denies ever experiencing withdrawal symptoms Treatment History: denies hx treatment Supports:?daughter Discussed risk reduction strategies including drinking below the recommended limit. Provided pt with written resources including information on inpatient and outpatient treatment, ASAEL, harm reduction, and recovery coaching. Pt plans to follow up with outpatient mental health providers upon discharge. Pt provided with t/w contact information if questions or concerns arise. Denies other questions or concerns at this time.?
[2024-01-09 11:43] LABS: Glucose, Whole Blood 300 mg/dL (60-115)
--- NOTE | 2024-01-09 15:33 | P.PNPSI_ITS ---
Subjective Subjective Date of Service: 01/09/24 Reason For Visit: SI Interim History: pleasant, cooperative, personable. slept well but interested in increasing doxazosin if he can taper and DC trazodone. otherwise feeling well, no issues or complaints. per staff, labile. +meds. social. +dep/anx. +grps. slept well. Mental Status Exam Mental Status Exam Narrative: adequately dressed and groomed. substantial alicia growth. cooperative, no PMA/PMR. speech incr rate and amount. nml loudness, tone. decr latency. thoughts linear and logical. affect full range, normo-intense, non-labile. mood improved. no SI/SIBI/HI/AVH expressed. Diagnostics Vital Signs (24Hr): Vital Signs - 24 hr 01/08/24 20:00 01/09/24 07:41 Temperature 97.5 F 97.5 F Pulse Rate 74 65 Respiratory Rate 16 16 Blood Pressure 145/86 H 114/64 Pulse Oximetry 96 97 Oxygen Delivery Method Room Air Room Air BMI result Body Mass Index 34.2 Labs 01/05/24 22:47 01/07/24 07:56 Labs: Laboratory Results - last 48 hr 01/07/24 01/07/24 01/08/24 16:38 20:33 07:39 POC Glucose 324 H 306 H 261 H 01/08/24 01/08/24 01/08/24 11:46 16:41 19:59 POC Glucose 272 H 241 H 263 H 01/09/24 01/09/24 08:00 11:32 POC Glucose 250 H 300 H Medications Medications Current Medications Acetaminophen (Acetaminophen 325 Mg Tablet) 650 mg PO Q6H PRN PRN Reason: Headache/Pain Mild Scale (1-3) Al Hydroxide/Mg Hydroxide (Magnesium Hydrox/Alum Hydrox 30 Ml Oral.Susp) 30 ml PO Q6H PRN PRN Reason: Heartburn/Nausea Bupropion HCl (Bupropion Hcl Xl 150 Mg Tab.Er.24h) 150 mg PO DAILY [facility] Last Admin: 01/09/24 08:21 Dose: 150 mg Doxazosin Mesylate (Doxazosin Mesylate 2 Mg Tablet) 2 mg PO BEDTIME [facility]; Protocol Fluoxetine HCl (Fluoxetine Hcl 20 Mg Capsule) 40 mg PO DAILY [facility] Last Admin: 01/09/24 08:21 Dose: 40 mg Glucose (Glucose Gel 15 Gm Gel..Gram.) 15 gm PO Q15M PRN; Protocol PRN Reason: per Hypoglycemia Standing Ord. Glucose (Glucose Gel 15 Gm Gel..Gram.) 15 gm PO Q15M PRN; Protocol PRN Reason: per Hypoglycemia Standing Ord. Hydroxyzine HCl (Hydroxyzine Hcl 25 Mg Tablet) 25 mg PO Q6H PRN PRN Reason: Anxiety Insulin Glargine (Insulin Glargine,Hum.Rec.Anlog 100 Unit/Ml 10 Ml Vial) 20 unit SUBCUT BEDTIME [facility] Last Admin: 01/08/24 21:40 Dose: 20 unit Insulin Human Lispro (Insulin Lispro 100 Unit/Ml 3 Ml Vial) 0 unit SUBCUT QIDACHS [facility]; Protocol Last Admin: 01/09/24 12:03 Dose: 6 unit Labetalol HCl (Labetalol Hcl 200 Mg Tablet) 200 mg PO BID [facility]; Protocol Last Admin: 01/09/24 08:21 Dose: 200 mg Magnesium Hydroxide (Milk Of Magnesia 30 Ml Oral.Susp) 30 ml PO DAILY PRN PRN Reason: Constipation Nicotine Polacrilex (Nicotine Polacrilex 2 Mg Gum) 4 mg BUCCAL Q2H PRN PRN Reason: Nicotine Cravings Omeprazole (Omeprazole 20 Mg Capsule.Dr) 20 mg PO BID@0630,1630 [facility] Last Admin: 01/09/24 06:46 Dose: 20 mg Trazodone HCl (Trazodone Hcl 50 Mg Tablet) 50 mg PO BEDTIME [facility] PRN PRN Reason: Insomnia Trazodone HCl (Trazodone Hcl 100 Mg Tablet) 100 mg PO BEDTIME [facility] Allergies Allergies Allergy/AdvReac Type Severity Reaction Status Date / Time No Known Allergies Allergy Verified 01/05/24 22:53 [No Known Allergies*] Assessment & Plan Assessment & Plan (1) Major depressive disorder: Status: Acute Code(s): F32.9 - Major depressive disorder, single episode, unspecified (2) PTSD (post-traumatic stress disorder): Status: Acute Code(s): F43.10 - Post-traumatic stress disorder, unspecified (3) Cocaine use disorder: Status: Acute Code(s): F14.10 - Cocaine abuse, uncomplicated (4) Alcohol use disorder: Status: Acute Code(s): F10.90 - Alcohol use, unspecified, uncomplicated Plan 01/06: ativan per [facility] protocol for AUD/withdrawal. increase prozac to 40 mg daily for depression/anxiety. restart wellbutrin XL 150 for depression. T/C use of clonidine, doxazosin, prazosin for PTSD-related Sx. referral for therapy/psychiatry. 01/07: no ativan, no w/drawal Sx. DC CIWA and ativan PRNs. start doxazosin 1 mg QHS. continue Tx as is otherwise. 01/08: slept well. increase doxazosin to 2 mg QHS, decrease trazodcone to 100 mg QHS. improved. continue current mgmt otherwise. Reason for continued inpatient stay Substantial Risk for: rapid decompensation Time Spent With Patient Time: Total time managing care of this patient today __25__ minutes.
[2024-01-09 17:08] LABS: Glucose, Whole Blood 266 mg/dL (60-115)
[2024-01-09 20:12] VITALS: BP 156/98; PULSE 73; RESP 16; TEMP 36.9; O2SAT 96
[2024-01-09 22:05] LABS: Glucose, Whole Blood 246 mg/dL (60-115)
[2024-01-09] MEDS: Doxazosin Mesylate 2 MG TABLET PO (22:16)
[2024-01-09] MEDS: traZODone HCL 100 MG TABLET PO (22:18)
[2024-01-09] MEDS: traZODone HCL 50 MG TABLET PO (22:18)
[2024-01-09] MEDS: Insulin Glargine,Hum.rec.anlog 100 UNIT/ML 10 ML VIAL 20 UNIT SUBCUT (22:19)
[2024-01-10] MEDS: Omeprazole 20 MG CAPSULE.DR PO ×2 (06:24→16:54)
[2024-01-10 08:00] VITALS: BP 129/78; PULSE 75; RESP 14; TEMP 36.4; O2SAT 97
[2024-01-10 08:23] LABS: Glucose, Whole Blood 265 mg/dL (60-115)
[2024-01-10] MEDS: Insulin Lispro 100 UNIT/ML 3 ML VIAL SUBCUT ×4 (08:37→21:47)
[2024-01-10] MEDS: Labetalol HCL 200 MG TABLET PO ×2 (08:38→21:48)
[2024-01-10] MEDS: buPROPion HCl XL 150 MG TAB.ER.24H PO (08:39)
[2024-01-10] MEDS: FLUoxetine HCl 20 MG CAPSULE 40 MG PO (08:39)
[2024-01-10 12:00] LABS: Glucose, Whole Blood 218 mg/dL (60-115)
--- NOTE | 2024-01-10 15:51 | HO.PSYCHPN ---
Subjective Subjective Date of Service: 01/10/24 Reason For Visit: SI Interim History: stable presentation. feeling well. slept well. agreeable to hospitalist consult re DM mgmt. agreeable to increase doxazosin to 3 mg QHS. per staff, mild depression/anxiety. +grps. social. had visit with daughter x2 yesterday. Mental Status Exam Mental Status Exam Narrative: adequately dressed and groomed. substantial alicia growth. cooperative, no PMA/PMR. speech incr rate and amount. nml loudness, tone. decr latency. thoughts linear and logical. affect full range, normo-intense, non-labile. mood improved. no SI/SIBI/HI/AVH expressed. Diagnostics Vital Signs (24Hr): Vital Signs - 24 hr 01/09/24 20:12 01/10/24 08:00 Temperature 98.5 F 97.5 F Pulse Rate 73 75 Respiratory Rate 16 14 Blood Pressure 156/98 H 129/78 Pulse Oximetry 96 97 Oxygen Delivery Method Room Air Room Air BMI result Body Mass Index 34.2 Labs 01/05/24 22:47 01/07/24 07:56 Labs: Laboratory Results - last 48 hr 01/08/24 01/08/24 01/09/24 16:41 19:59 08:00 POC Glucose 241 H 263 H 250 H 01/09/24 01/09/24 01/09/24 11:32 17:05 22:00 POC Glucose 300 H 266 H 246 H 01/10/24 01/10/24 08:02 11:52 POC Glucose 265 H 218 H Medications Medications Current Medications Acetaminophen (Acetaminophen 325 Mg Tablet) 650 mg PO Q6H PRN PRN Reason: Headache/Pain Mild Scale (1-3) Al Hydroxide/Mg Hydroxide (Magnesium Hydrox/Alum Hydrox 30 Ml Oral.Susp) 30 ml PO Q6H PRN PRN Reason: Heartburn/Nausea Bupropion HCl (Bupropion Hcl Xl 150 Mg Tab.Er.24h) 150 mg PO DAILY [facility] Last Admin: 01/10/24 08:39 Dose: 150 mg Doxazosin Mesylate (Doxazosin Mesylate 1 Mg Tablet) 3 mg PO BEDTIME [facility]; Protocol Fluoxetine HCl (Fluoxetine Hcl 20 Mg Capsule) 40 mg PO DAILY [facility] Last Admin: 01/10/24 08:39 Dose: 40 mg Glucose (Glucose Gel 15 Gm Gel..Gram.) 15 gm PO Q15M PRN; Protocol PRN Reason: per Hypoglycemia Standing Ord. Glucose (Glucose Gel 15 Gm Gel..Gram.) 15 gm PO Q15M PRN; Protocol PRN Reason: per Hypoglycemia Standing Ord. Hydroxyzine HCl (Hydroxyzine Hcl 25 Mg Tablet) 25 mg PO Q6H PRN PRN Reason: Anxiety Insulin Glargine (Insulin Glargine,Hum.Rec.Anlog 100 Unit/Ml 10 Ml Vial) 20 unit SUBCUT BEDTIME [facility] Last Admin: 01/09/24 22:19 Dose: 20 unit Insulin Human Lispro (Insulin Lispro 100 Unit/Ml 3 Ml Vial) 0 unit SUBCUT QIDACHS [facility]; Protocol Last Admin: 01/10/24 12:05 Dose: 4 unit Labetalol HCl (Labetalol Hcl 200 Mg Tablet) 200 mg PO BID [facility]; Protocol Last Admin: 01/10/24 08:38 Dose: 200 mg Magnesium Hydroxide (Milk Of Magnesia 30 Ml Oral.Susp) 30 ml PO DAILY PRN PRN Reason: Constipation Nicotine Polacrilex (Nicotine Polacrilex 2 Mg Gum) 4 mg BUCCAL Q2H PRN PRN Reason: Nicotine Cravings Omeprazole (Omeprazole 20 Mg Capsule.Dr) 20 mg PO BID@0630,1630 [facility] Last Admin: 01/10/24 06:24 Dose: 20 mg Trazodone HCl (Trazodone Hcl 100 Mg Tablet) 100 mg PO BEDTIME [facility] Last Admin: 01/09/24 22:18 Dose: 100 mg Allergies Allergies Allergy/AdvReac Type Severity Reaction Status Date / Time No Known Allergies Allergy Verified 01/05/24 22:53 [No Known Allergies*] Assessment & Plan Assessment & Plan (1) Major depressive disorder: Status: Acute Code(s): F32.9 - Major depressive disorder, single episode, unspecified (2) PTSD (post-traumatic stress disorder): Status: Acute Code(s): F43.10 - Post-traumatic stress disorder, unspecified (3) Cocaine use disorder: Status: Acute Code(s): F14.10 - Cocaine abuse, uncomplicated (4) Alcohol use disorder: Status: Acute Code(s): F10.90 - Alcohol use, unspecified, uncomplicated Plan 01/06: ativan per [facility] protocol for AUD/withdrawal. increase prozac to 40 mg daily for depression/anxiety. restart wellbutrin XL 150 for depression. T/C use of clonidine, doxazosin, prazosin for PTSD-related Sx. referral for therapy/psychiatry. 01/07: no ativan, no w/drawal Sx. DC CIWA and ativan PRNs. start doxazosin 1 mg QHS. continue Tx as is otherwise. 01/08: slept well. increase doxazosin to 2 mg QHS, decrease trazodcone to 100 mg QHS. improved. continue current mgmt otherwise. 01/09: slept well again, mood remains improved. increase doxazosin to 3 mf QHS, DC trazodone PRNs. Reason for continued inpatient stay Substantial Risk for: inability to function and rapid decompensation Time Spent With Patient Time: Total time managing care of this patient today _25___ minutes.
[2024-01-10 16:52] LABS: Glucose, Whole Blood 203 mg/dL (60-115)
--- NOTE | 2024-01-10 18:08 | P.EN_ITS ---
Event Note Date of Service: 01/10/24 Event Note: Patient is a 53-year-old male with a past history significant insulin-dependent type 2 diabetes, GERD, alcohol use disorder, opioid use disorder PTSD, and MDD who was seen for medical consult for diabetes management. Attempted to see patient multiple times while on the unit, but patient unavailable as he was with a family visit with his daughter. Patient's POCs has been elevated while on the unit often in the mid 200s and as high as 393. Review of medication claim history indicates patient previously on metformin 500 mg b.i.d. and Trulicity. Will restart patient on metformin 500 mg b.i.d. with meals and increase Lantus at bedtime to 24 units. Patient should be encouraged to adhere to a diabetic diet and diabetic snacking. Will sign off for now. Thank you for allowing us to participate in the care of this patient. If patient continues to be hyper glycemic, please re-consult for additional management. Time Spent With Patient Time: Total time managing care of this patient today ____ minutes.
[2024-01-10] MEDS: metFORMIN HCl 500 MG TABLET PO (18:30)
[2024-01-10 19:52] VITALS: BP 139/88; PULSE 73; RESP 18; TEMP 36.6; O2SAT 97
[2024-01-10 21:46] LABS: Glucose, Whole Blood 217 mg/dL (60-115)
[2024-01-10 21:48] VITALS: BP 139/86; PULSE 71
[2024-01-10] MEDS: Insulin Glargine,Hum.rec.anlog 100 UNIT/ML 10 ML VIAL 24 UNIT SUBCUT (21:48)
[2024-01-10 21:54] VITALS: BP 139/86
[2024-01-10] MEDS: traZODone HCL 100 MG TABLET PO (21:54)
[2024-01-10] MEDS: Doxazosin Mesylate 1 MG TABLET 3 MG PO (21:54)
[2024-01-11] MEDS: Omeprazole 20 MG CAPSULE.DR PO ×2 (07:17→17:16)
[2024-01-11 07:27] LABS: Glucose, Whole Blood 218 mg/dL (60-115)
[2024-01-11 07:29] VITALS: BP 106/62; PULSE 61; RESP 14; TEMP 36.4; O2SAT 97
[2024-01-11 08:35] VITALS: BP 128/81; PULSE 80
[2024-01-11] MEDS: Labetalol HCL 200 MG TABLET PO ×2 (08:35→23:03)
[2024-01-11] MEDS: buPROPion HCl XL 150 MG TAB.ER.24H PO (08:35)
[2024-01-11] MEDS: metFORMIN HCl 500 MG TABLET PO ×2 (08:35→17:17)
[2024-01-11] MEDS: FLUoxetine HCl 20 MG CAPSULE 40 MG PO (08:38)
[2024-01-11] MEDS: Insulin Lispro 100 UNIT/ML 3 ML VIAL SUBCUT ×4 (08:40→23:03)
[2024-01-11 12:26] LABS: Glucose, Whole Blood 214 mg/dL (60-115)
[2024-01-11 16:48] LABS: Glucose, Whole Blood 210 mg/dL (60-115)
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
[2024-01-11 19:41] VITALS: BP 144/91; PULSE 71; RESP 16; TEMP 36.9; O2SAT 97
--- NOTE | 2024-01-11 20:09 | P.PNPSI_ITS ---
Subjective Subjective Date of Service: 01/11/24 Reason For Visit: SI Interim History: no change in presentation. positive, grateful. slept well, would like to leave meds as they are. per staff, cheerful, visible. +grps. no dep/anx. playing games with peers. FSBS in 200s. BP 139/86. slept 8 hours. Mental Status Exam Mental Status Exam Narrative: adequately dressed and groomed. substantial alicia growth. cooperative, no PMA/PMR. speech incr rate and amount. nml loudness, tone. decr latency. thoughts linear and logical. affect full range, normo-intense, non-labile. mood improved. no SI/SIBI/HI/AVH expressed. Diagnostics Vital Signs (24Hr): Vital Signs - 24 hr 01/10/24 21:48 01/10/24 21:54 01/11/24 07:29 Temperature 97.5 F Pulse Rate 71 61 Respiratory Rate 14 Blood Pressure 139/86 139/86 106/62 Pulse Oximetry 97 Oxygen Delivery Method Room Air 01/11/24 08:35 Temperature Pulse Rate 80 Respiratory Rate Blood Pressure 128/81 Pulse Oximetry Oxygen Delivery Method BMI result Body Mass Index 34.2 Labs 01/05/24 22:47 01/07/24 07:56 Labs: Laboratory Results - last 48 hr 01/09/24 01/10/24 01/10/24 22:00 08:02 11:52 POC Glucose 246 H 265 H 218 H 01/10/24 01/10/24 01/11/24 16:48 21:40 07:20 POC Glucose 203 H 217 H 218 H 01/11/24 01/11/24 12:16 16:35 POC Glucose 214 H 210 H Medications Medications Current Medications Acetaminophen (Acetaminophen 325 Mg Tablet) 650 mg PO Q6H PRN PRN Reason: Headache/Pain Mild Scale (1-3) Al Hydroxide/Mg Hydroxide (Magnesium Hydrox/Alum Hydrox 30 Ml Oral.Susp) 30 ml PO Q6H PRN PRN Reason: Heartburn/Nausea Bupropion HCl (Bupropion Hcl Xl 150 Mg Tab.Er.24h) 150 mg PO DAILY [facility] Last Admin: 01/11/24 08:35 Dose: 150 mg Doxazosin Mesylate (Doxazosin Mesylate 1 Mg Tablet) 3 mg PO BEDTIME [facility]; Protocol Last Admin: 01/10/24 21:54 Dose: 3 mg Fluoxetine HCl (Fluoxetine Hcl 20 Mg Capsule) 40 mg PO DAILY [facility] Last Admin: 01/11/24 08:38 Dose: 40 mg Glucose (Glucose Gel 15 Gm Gel..Gram.) 15 gm PO Q15M PRN; Protocol PRN Reason: per Hypoglycemia Standing Ord. Glucose (Glucose Gel 15 Gm Gel..Gram.) 15 gm PO Q15M PRN; Protocol PRN Reason: per Hypoglycemia Standing Ord. Hydroxyzine HCl (Hydroxyzine Hcl 25 Mg Tablet) 25 mg PO Q6H PRN PRN Reason: Anxiety Insulin Glargine (Insulin Glargine,Hum.Rec.Anlog 100 Unit/Ml 10 Ml Vial) 24 unit SUBCUT BEDTIME [facility] Last Admin: 01/10/24 21:48 Dose: 24 unit Insulin Human Lispro (Insulin Lispro 100 Unit/Ml 3 Ml Vial) 0 unit SUBCUT QIDACHS [facility]; Protocol Last Admin: 01/11/24 17:17 Dose: 4 unit Labetalol HCl (Labetalol Hcl 200 Mg Tablet) 200 mg PO BID [facility]; Protocol Last Admin: 01/11/24 08:35 Dose: 200 mg Magnesium Hydroxide (Milk Of Magnesia 30 Ml Oral.Susp) 30 ml PO DAILY PRN PRN Reason: Constipation Metformin HCl (Metformin Hcl 500 Mg Tablet) 500 mg PO BIDWM [facility] Last Admin: 01/11/24 17:17 Dose: 500 mg Nicotine Polacrilex (Nicotine Polacrilex 2 Mg Gum) 4 mg BUCCAL Q2H PRN PRN Reason: Nicotine Cravings Omeprazole (Omeprazole 20 Mg Capsule.Dr) 20 mg PO BID@0630,1630 [facility] Last Admin: 01/11/24 17:16 Dose: 20 mg Trazodone HCl (Trazodone Hcl 100 Mg Tablet) 100 mg PO BEDTIME [facility] Last Admin: 01/10/24 21:54 Dose: 100 mg Allergies Allergies Allergy/AdvReac Type Severity Reaction Status Date / Time No Known Allergies Allergy Verified 01/05/24 22:53 [No Known Allergies*] Assessment & Plan Assessment & Plan (1) Major depressive disorder: Status: Acute Code(s): F32.9 - Major depressive disorder, single episode, unspecified (2) PTSD (post-traumatic stress disorder): Status: Acute Code(s): F43.10 - Post-traumatic stress disorder, unspecified (3) Cocaine use disorder: Status: Acute Code(s): F14.10 - Cocaine abuse, uncomplicated (4) Alcohol use disorder: Status: Acute Code(s): F10.90 - Alcohol use, unspecified, uncomplicated Plan 01/06: ativan per [facility] protocol for AUD/withdrawal. increase prozac to 40 mg daily for depression/anxiety. restart wellbutrin XL 150 for depression. T/C use of clonidine, doxazosin, prazosin for PTSD-related Sx. referral for therapy/psychiatry. 01/07: no ativan, no w/drawal Sx. DC CIWA and ativan PRNs. start doxazosin 1 mg QHS. continue Tx as is otherwise. 01/08: slept well. increase doxazosin to 2 mg QHS, decrease trazodcone to 100 mg QHS. improved. continue current mgmt otherwise. 01/09: slept well again, mood remains improved. increase doxazosin to 3 mg QHS, DC trazodone PRNs. 01/10: slept well, feels well, declines any medication changes. continue current mgmt. DC weds or thur. Reason for continued inpatient stay Substantial Risk for: rapid decompensation Time Spent With Patient Time: Total time managing care of this patient today ____ minutes.
[2024-01-11 22:58] LABS: Glucose, Whole Blood 246 mg/dL (60-115)
[2024-01-11] MEDS: Insulin Glargine,Hum.rec.anlog 100 UNIT/ML 10 ML VIAL 24 UNIT SUBCUT (23:02)
[2024-01-11 23:03] VITALS: BP 119/78; PULSE 81
[2024-01-11] MEDS: traZODone HCL 100 MG TABLET PO (23:03)
[2024-01-11 23:04] VITALS: BP 119/78
[2024-01-11] MEDS: Doxazosin Mesylate 1 MG TABLET 3 MG PO (23:04)
[2024-01-12] MEDS: Omeprazole 20 MG CAPSULE.DR PO ×2 (06:51→16:59)
[2024-01-12 07:36] VITALS: BP 98/66; PULSE 63; RESP 16; TEMP 36.6; O2SAT 97
[2024-01-12 07:59] LABS: Glucose, Whole Blood 218 mg/dL (60-115)
[2024-01-12 08:40] VITALS: BP 128/76; PULSE 80; O2SAT 98
[2024-01-12] MEDS: buPROPion HCl XL 150 MG TAB.ER.24H PO (08:41)
[2024-01-12] MEDS: Labetalol HCL 200 MG TABLET PO ×2 (08:41→22:40)
[2024-01-12] MEDS: metFORMIN HCl 500 MG TABLET PO ×2 (08:41→17:00)
[2024-01-12] MEDS: FLUoxetine HCl 20 MG CAPSULE 40 MG PO (08:41)
[2024-01-12] MEDS: Insulin Lispro 100 UNIT/ML 3 ML VIAL SUBCUT ×4 (08:42→21:53)
[2024-01-12 11:46] LABS: Glucose, Whole Blood 191 mg/dL (60-115)
[2024-01-12] MEDS: Calcium Carbonate 750 MG TAB.CHEW PO (15:51)
[2024-01-12 16:52] LABS: Glucose, Whole Blood 217 mg/dL (60-115)
--- NOTE | 2024-01-12 17:52 | P.PNPSI_ITS ---
Subjective Subjective Date of Service: 01/12/24 Reason For Visit: SI Interim History: not as jovial as prior. a little trouble falling asleep, thinks it's due to environment. in any case, BP is up, agrees to increase doxazosin to 4 mg QHS. per staff, cheerful. not attending groups. FSBS low 200s. BP 144/91. ice packs to side. social. Mental Status Exam Mental Status Exam Narrative: adequately dressed and groomed. substantial alicia growth. cooperative, no PMA/PMR. speech incr rate and amount. nml loudness, tone. decr latency. thoughts linear and logical. affect full range, normo-intense, non-labile. mood improved. no SI/SIBI/HI/AVH expressed. Diagnostics Vital Signs (24Hr): Vital Signs - 24 hr 01/11/24 19:41 01/11/24 23:03 01/11/24 23:04 Temperature 98.5 F Pulse Rate 71 81 Respiratory Rate 16 Blood Pressure 144/91 H 119/78 119/78 Pulse Oximetry 97 Oxygen Delivery Method Room Air 01/12/24 07:36 01/12/24 08:40 Temperature 97.8 F Pulse Rate 63 80 Respiratory Rate 16 Blood Pressure 98/66 128/76 Pulse Oximetry 97 98 Oxygen Delivery Method Room Air Room Air BMI result Body Mass Index 34.2 Labs 01/05/24 22:47 01/07/24 07:56 Labs: Laboratory Results - last 48 hr 01/10/24 01/11/24 01/11/24 21:40 07:20 12:16 POC Glucose 217 H 218 H 214 H 01/11/24 01/11/24 01/12/24 16:35 22:54 07:54 POC Glucose 210 H 246 H 218 H 01/12/24 01/12/24 11:41 16:47 POC Glucose 191 H 217 H Medications Medications Current Medications Acetaminophen (Acetaminophen 325 Mg Tablet) 650 mg PO Q6H PRN PRN Reason: Headache/Pain Mild Scale (1-3) Bupropion HCl (Bupropion Hcl Xl 150 Mg Tab.Er.24h) 150 mg PO DAILY [facility] Last Admin: 01/12/24 08:41 Dose: 150 mg Calcium Carbonate (Calcium Carbonate 750 Mg Tab.Chew) 750 mg PO Q4H PRN PRN Reason: Heartburn Last Admin: 01/12/24 15:51 Dose: 750 mg Doxazosin Mesylate (Doxazosin Mesylate 2 Mg Tablet) 4 mg PO BEDTIME [facility]; Protocol Fluoxetine HCl (Fluoxetine Hcl 20 Mg Capsule) 40 mg PO DAILY [facility] Last Admin: 01/12/24 08:41 Dose: 40 mg Glucose (Glucose Gel 15 Gm Gel..Gram.) 15 gm PO Q15M PRN; Protocol PRN Reason: per Hypoglycemia Standing Ord. Glucose (Glucose Gel 15 Gm Gel..Gram.) 15 gm PO Q15M PRN; Protocol PRN Reason: per Hypoglycemia Standing Ord. Hydroxyzine HCl (Hydroxyzine Hcl 25 Mg Tablet) 25 mg PO Q6H PRN PRN Reason: Anxiety Insulin Glargine (Insulin Glargine,Hum.Rec.Anlog 100 Unit/Ml 10 Ml Vial) 24 unit SUBCUT BEDTIME [facility] Last Admin: 01/11/24 23:02 Dose: 24 unit Insulin Human Lispro (Insulin Lispro 100 Unit/Ml 3 Ml Vial) 0 unit SUBCUT QIDACHS [facility]; Protocol Last Admin: 01/12/24 17:00 Dose: 4 unit Labetalol HCl (Labetalol Hcl 200 Mg Tablet) 200 mg PO BID [facility]; Protocol Last Admin: 01/12/24 08:41 Dose: 200 mg Magnesium Hydroxide (Milk Of Magnesia 30 Ml Oral.Susp) 30 ml PO DAILY PRN PRN Reason: Constipation Metformin HCl (Metformin Hcl 500 Mg Tablet) 500 mg PO BIDWM [facility] Last Admin: 01/12/24 17:00 Dose: 500 mg Nicotine Polacrilex (Nicotine Polacrilex 2 Mg Gum) 4 mg BUCCAL Q2H PRN PRN Reason: Nicotine Cravings Omeprazole (Omeprazole 20 Mg Capsule.Dr) 20 mg PO BID@0630,1630 [facility] Last Admin: 01/12/24 16:59 Dose: 20 mg Trazodone HCl (Trazodone Hcl 100 Mg Tablet) 100 mg PO BEDTIME [facility] Last Admin: 01/11/24 23:03 Dose: 100 mg Allergies Allergies Allergy/AdvReac Type Severity Reaction Status Date / Time No Known Allergies Allergy Verified 01/05/24 22:53 [No Known Allergies*] Assessment & Plan Assessment & Plan (1) Major depressive disorder: Status: Acute Code(s): F32.9 - Major depressive disorder, single episode, unspecified (2) PTSD (post-traumatic stress disorder): Status: Acute Code(s): F43.10 - Post-traumatic stress disorder, unspecified (3) Cocaine use disorder: Status: Acute Code(s): F14.10 - Cocaine abuse, uncomplicated (4) Alcohol use disorder: Status: Acute Code(s): F10.90 - Alcohol use, unspecified, uncomplicated Plan 01/06: ativan per [facility] protocol for AUD/withdrawal. increase prozac to 40 mg daily for depression/anxiety. restart wellbutrin XL 150 for depression. T/C use of clonidine, doxazosin, prazosin for PTSD-related Sx. referral for therapy/psychiatry. 01/07: no ativan, no w/drawal Sx. DC CIWA and ativan PRNs. start doxazosin 1 mg QHS. continue Tx as is otherwise. 01/08: slept well. increase doxazosin to 2 mg QHS, decrease trazodcone to 100 mg QHS. improved. continue current mgmt otherwise. 01/09: slept well again, mood remains improved. increase doxazosin to 3 mg QHS, DC trazodone PRNs. 01/10: slept well, feels well, declines any medication changes. continue current mgmt. DC weds or . 01/11: increase doxazosin to 4 mg QHS for sleep and BP. otherwise continue current mgmt. Reason for continued inpatient stay Substantial Risk for: harm to self, harm to others, inability to function and rapid decompensation Time Spent With Patient Time: Total time managing care of this patient today ____ minutes.
[2024-01-12 20:00] VITALS: BP 159/87; PULSE 74; RESP 16; TEMP 36.9; O2SAT 98
[2024-01-12 21:47] LABS: Glucose, Whole Blood 242 mg/dL (60-115)
[2024-01-12] MEDS: Insulin Glargine,Hum.rec.anlog 100 UNIT/ML 10 ML VIAL 24 UNIT SUBCUT (21:52)
[2024-01-12 22:39] VITALS: BP 150/79; PULSE 73
[2024-01-12] MEDS: traZODone HCL 100 MG TABLET PO (22:40)
[2024-01-12] MEDS: Doxazosin Mesylate 2 MG TABLET 4 MG PO (22:40)
[2024-01-13] MEDS: Omeprazole 20 MG CAPSULE.DR PO ×2 (06:59→17:46)
[2024-01-13 07:49] VITALS: BP 105/59; PULSE 66; RESP 14; TEMP 36.7; O2SAT 96
[2024-01-13 07:51] LABS: Glucose, Whole Blood 186 mg/dL (60-115)
[2024-01-13] MEDS: FLUoxetine HCl 20 MG CAPSULE 40 MG PO (08:14)
[2024-01-13] MEDS: buPROPion HCl XL 150 MG TAB.ER.24H PO (08:15)
[2024-01-13] MEDS: Labetalol HCL 200 MG TABLET PO ×2 (08:15→22:35)
[2024-01-13] MEDS: metFORMIN HCl 500 MG TABLET PO ×2 (08:15→17:46)
[2024-01-13] MEDS: Insulin Lispro 100 UNIT/ML 3 ML VIAL SUBCUT ×4 (08:17→21:09)
[2024-01-13 11:50] LABS: Glucose, Whole Blood 211 mg/dL (60-115)
[2024-01-13 16:46] LABS: Glucose, Whole Blood 235 mg/dL (60-115)
--- NOTE | 2024-01-13 19:22 | P.PNPSI_ITS ---
Subjective Subjective Date of Service: 01/13/24 Reason For Visit: SI Interim History: feeling more energetic. talking about discharge soon, planning for weds or prosper. per staff, slept 7 hours. no dep/anx. FSBS 186 this morning. wants PHP after DC. Mental Status Exam Mental Status Exam Narrative: adequately dressed and groomed. substantial alicia growth. cooperative, no PMA/PMR. speech incr rate and amount. nml loudness, tone. decr latency. thoughts linear and logical. affect full range, normo-intense, non-labile. mood improved. no SI/SIBI/HI/AVH expressed. Diagnostics Vital Signs (24Hr): Vital Signs - 24 hr 01/12/24 20:00 01/12/24 22:39 01/13/24 07:49 Temperature 98.4 F 98.0 F Pulse Rate 74 73 66 Respiratory Rate 16 14 Blood Pressure 159/87 H 150/79 H 105/59 L Pulse Oximetry 98 96 Oxygen Delivery Method Room Air Room Air BMI result Body Mass Index 34.2 Labs 01/05/24 22:47 01/07/24 07:56 Labs: Laboratory Results - last 48 hr 01/11/24 01/12/24 01/12/24 22:54 07:54 11:41 POC Glucose 246 H 218 H 191 H 01/12/24 01/12/24 01/13/24 16:47 21:42 07:45 POC Glucose 217 H 242 H 186 H 01/13/24 01/13/24 11:42 16:32 POC Glucose 211 H 235 H Medications Medications Current Medications Acetaminophen (Acetaminophen 325 Mg Tablet) 650 mg PO Q6H PRN PRN Reason: Headache/Pain Mild Scale (1-3) Bupropion HCl (Bupropion Hcl Xl 150 Mg Tab.Er.24h) 150 mg PO DAILY [facility] Last Admin: 01/13/24 08:15 Dose: 150 mg Calcium Carbonate (Calcium Carbonate 750 Mg Tab.Chew) 750 mg PO Q4H PRN PRN Reason: Heartburn Last Admin: 01/12/24 15:51 Dose: 750 mg Doxazosin Mesylate (Doxazosin Mesylate 2 Mg Tablet) 4 mg PO BEDTIME [facility]; Protocol Last Admin: 01/12/24 22:40 Dose: 4 mg Fluoxetine HCl (Fluoxetine Hcl 20 Mg Capsule) 40 mg PO DAILY [facility] Last Admin: 01/13/24 08:14 Dose: 40 mg Glucose (Glucose Gel 15 Gm Gel..Gram.) 15 gm PO Q15M PRN; Protocol PRN Reason: per Hypoglycemia Standing Ord. Glucose (Glucose Gel 15 Gm Gel..Gram.) 15 gm PO Q15M PRN; Protocol PRN Reason: per Hypoglycemia Standing Ord. Hydroxyzine HCl (Hydroxyzine Hcl 25 Mg Tablet) 25 mg PO Q6H PRN PRN Reason: Anxiety Insulin Glargine (Insulin Glargine,Hum.Rec.Anlog 100 Unit/Ml 10 Ml Vial) 24 unit SUBCUT BEDTIME [facility] Last Admin: 01/12/24 21:52 Dose: 24 unit Insulin Human Lispro (Insulin Lispro 100 Unit/Ml 3 Ml Vial) 0 unit SUBCUT QIDACHS [facility]; Protocol Last Admin: 01/13/24 17:46 Dose: 4 unit Labetalol HCl (Labetalol Hcl 200 Mg Tablet) 200 mg PO BID [facility]; Protocol Last Admin: 01/13/24 08:15 Dose: 200 mg Magnesium Hydroxide (Milk Of Magnesia 30 Ml Oral.Susp) 30 ml PO DAILY PRN PRN Reason: Constipation Metformin HCl (Metformin Hcl 500 Mg Tablet) 500 mg PO BIDWM [facility] Last Admin: 01/13/24 17:46 Dose: 500 mg Nicotine Polacrilex (Nicotine Polacrilex 2 Mg Gum) 4 mg BUCCAL Q2H PRN PRN Reason: Nicotine Cravings Omeprazole (Omeprazole 20 Mg Capsule.Dr) 20 mg PO BID@0630,1630 [facility] Last Admin: 01/13/24 17:46 Dose: 20 mg Trazodone HCl (Trazodone Hcl 100 Mg Tablet) 100 mg PO BEDTIME [facility] Last Admin: 01/12/24 22:40 Dose: 100 mg Allergies Allergies Allergy/AdvReac Type Severity Reaction Status Date / Time No Known Allergies Allergy Verified 01/05/24 22:53 [No Known Allergies*] Assessment & Plan Assessment & Plan (1) Major depressive disorder: Status: Acute Code(s): F32.9 - Major depressive disorder, single episode, unspecified (2) PTSD (post-traumatic stress disorder): Status: Acute Code(s): F43.10 - Post-traumatic stress disorder, unspecified (3) Cocaine use disorder: Status: Acute Code(s): F14.10 - Cocaine abuse, uncomplicated (4) Alcohol use disorder: Status: Acute Code(s): F10.90 - Alcohol use, unspecified, uncomplicated Plan 01/06: ativan per [facility] protocol for AUD/withdrawal. increase prozac to 40 mg daily for depression/anxiety. restart wellbutrin XL 150 for depression. T/C use of clonidine, doxazosin, prazosin for PTSD-related Sx. referral for therapy/psychiatry. 01/07: no ativan, no w/drawal Sx. DC CIWA and ativan PRNs. start doxazosin 1 mg QHS. continue Tx as is otherwise. 01/08: slept well. increase doxazosin to 2 mg QHS, decrease trazodcone to 100 mg QHS. improved. continue current mgmt otherwise. 01/09: slept well again, mood remains improved. increase doxazosin to 3 mg QHS, DC trazodone PRNs. 01/10: slept well, feels well, declines any medication changes. continue current mgmt. DC weds or thur. 01/11: increase doxazosin to 4 mg QHS for sleep and BP. otherwise continue current mgmt. 01/12: feeling well, would like to stay with present regimen. hoping to discharge soon. continue current mgmt, discharge wed or prosper. Reason for continued inpatient stay Substantial Risk for: harm to self, harm to others and rapid decompensation Time Spent With Patient Time: Total time managing care of this patient today ____ minutes.
[2024-01-13 20:00] VITALS: BP 141/85; PULSE 70; RESP 14; TEMP 36.8; O2SAT 98
[2024-01-13 20:42] LABS: Glucose, Whole Blood 179 mg/dL (60-115)
[2024-01-13] MEDS: Insulin Glargine,Hum.rec.anlog 100 UNIT/ML 10 ML VIAL 24 UNIT SUBCUT (21:10)
[2024-01-13 22:32] VITALS: BP 141/88; PULSE 70
[2024-01-13] MEDS: traZODone HCL 100 MG TABLET PO (22:35)
[2024-01-13] MEDS: Doxazosin Mesylate 2 MG TABLET 4 MG PO (22:35)
--- NOTE | 2024-01-13 22:43 | PC.NURSE ---
requesting not to be woken for AM prilosec
[2024-01-14 07:59] LABS: Glucose, Whole Blood 191 mg/dL (60-115)
[2024-01-14 08:18] VITALS: BP 131/80; PULSE 70; TEMP 36.6; O2SAT 98
[2024-01-14] MEDS: Omeprazole 20 MG CAPSULE.DR PO ×2 (08:21→17:24)
[2024-01-14] MEDS: buPROPion HCl XL 150 MG TAB.ER.24H PO (08:21)
[2024-01-14] MEDS: metFORMIN HCl 500 MG TABLET PO ×2 (08:21→17:24)
[2024-01-14] MEDS: Labetalol HCL 200 MG TABLET PO ×2 (08:21→21:34)
[2024-01-14] MEDS: FLUoxetine HCl 20 MG CAPSULE 40 MG PO (08:21)
[2024-01-14] MEDS: Insulin Lispro 100 UNIT/ML 3 ML VIAL SUBCUT ×4 (08:22→21:35)
[2024-01-14 10:13] LABS: Creatinine Clr Calc Pharmacy 75.7; Estimated Glomerular Filt Rate 50
[2024-01-14 11:51] LABS: Glucose, Whole Blood 162 mg/dL (60-115)
--- NOTE | 2024-01-14 15:53 | P.PNPSI_ITS ---
Subjective Subjective Date of Service: 01/14/24 Reason For Visit: SI Interim History: no issues. things going well. ready to discharge for . per staff, no issues. Mental Status Exam Mental Status Exam Narrative: adequately dressed and groomed. substantial alicia growth. cooperative, no PMA/PMR. speech incr rate and amount. nml loudness, tone. decr latency. thoughts linear and logical. affect full range, normo-intense, non-labile. mood improved. no SI/SIBI/HI/AVH expressed. Diagnostics Vital Signs (24Hr): Vital Signs - 24 hr 01/13/24 20:00 01/13/24 22:32 01/14/24 08:18 Temperature 98.2 F 97.8 F Pulse Rate 70 70 70 Respiratory Rate 14 Blood Pressure 141/85 H 141/88 H 131/80 Pulse Oximetry 98 98 Oxygen Delivery Method Room Air Room Air BMI result Body Mass Index 34.2 Labs 01/05/24 22:47 01/14/24 09:41 Labs: Laboratory Results - last 48 hr 01/12/24 01/12/24 01/13/24 16:47 21:42 07:45 Creatinine Estim Creat Clear Calc Estimated GFR POC Glucose 217 H 242 H 186 H 01/13/24 01/13/24 01/13/24 11:42 16:32 20:38 Creatinine Estim Creat Clear Calc Estimated GFR POC Glucose 211 H 235 H 179 H 01/14/24 01/14/24 01/14/24 07:55 09:41 11:46 Creatinine 1.49 H Estim Creat Clear Calc 75.7 Estimated GFR 50 POC Glucose 191 H 162 H Medications Medications Current Medications Acetaminophen (Acetaminophen 325 Mg Tablet) 650 mg PO Q6H PRN PRN Reason: Headache/Pain Mild Scale (1-3) Bupropion HCl (Bupropion Hcl Xl 150 Mg Tab.Er.24h) 150 mg PO DAILY [facility] Last Admin: 01/14/24 08:21 Dose: 150 mg Calcium Carbonate (Calcium Carbonate 750 Mg Tab.Chew) 750 mg PO Q4H PRN PRN Reason: Heartburn Last Admin: 01/12/24 15:51 Dose: 750 mg Doxazosin Mesylate (Doxazosin Mesylate 2 Mg Tablet) 4 mg PO BEDTIME [facility]; Protocol Last Admin: 01/13/24 22:35 Dose: 4 mg Fluoxetine HCl (Fluoxetine Hcl 20 Mg Capsule) 40 mg PO DAILY [facility] Last Admin: 01/14/24 08:21 Dose: 40 mg Glucose (Glucose Gel 15 Gm Gel..Gram.) 15 gm PO Q15M PRN; Protocol PRN Reason: per Hypoglycemia Standing Ord. Glucose (Glucose Gel 15 Gm Gel..Gram.) 15 gm PO Q15M PRN; Protocol PRN Reason: per Hypoglycemia Standing Ord. Hydroxyzine HCl (Hydroxyzine Hcl 25 Mg Tablet) 25 mg PO Q6H PRN PRN Reason: Anxiety Insulin Glargine (Insulin Glargine,Hum.Rec.Anlog 100 Unit/Ml 10 Ml Vial) 24 unit SUBCUT BEDTIME [facility] Last Admin: 01/13/24 21:10 Dose: 24 unit Insulin Human Lispro (Insulin Lispro 100 Unit/Ml 3 Ml Vial) 0 unit SUBCUT QIDACHS [facility]; Protocol Last Admin: 01/14/24 12:25 Dose: 2 unit Labetalol HCl (Labetalol Hcl 200 Mg Tablet) 200 mg PO BID [facility]; Protocol Last Admin: 01/14/24 08:21 Dose: 200 mg Magnesium Hydroxide (Milk Of Magnesia 30 Ml Oral.Susp) 30 ml PO DAILY PRN PRN Reason: Constipation Metformin HCl (Metformin Hcl 500 Mg Tablet) 500 mg PO BIDWM [facility] Last Admin: 01/14/24 08:21 Dose: 500 mg Nicotine Polacrilex (Nicotine Polacrilex 2 Mg Gum) 4 mg BUCCAL Q2H PRN PRN Reason: Nicotine Cravings Omeprazole (Omeprazole 20 Mg Capsule.Dr) 20 mg PO BID@0630,1630 [facility] Last Admin: 01/14/24 08:21 Dose: 20 mg Trazodone HCl (Trazodone Hcl 100 Mg Tablet) 100 mg PO BEDTIME [facility] Last Admin: 01/13/24 22:35 Dose: 100 mg Allergies Allergies Allergy/AdvReac Type Severity Reaction Status Date / Time No Known Allergies Allergy Verified 01/05/24 22:53 [No Known Allergies*] Assessment & Plan Assessment & Plan (1) Major depressive disorder: Status: Acute Code(s): F32.9 - Major depressive disorder, single episode, unspecified (2) PTSD (post-traumatic stress disorder): Status: Acute Code(s): F43.10 - Post-traumatic stress disorder, unspecified (3) Cocaine use disorder: Status: Acute Code(s): F14.10 - Cocaine abuse, uncomplicated (4) Alcohol use disorder: Status: Acute Code(s): F10.90 - Alcohol use, unspecified, uncomplicated Plan 01/06: ativan per [facility] protocol for AUD/withdrawal. increase prozac to 40 mg daily for depression/anxiety. restart wellbutrin XL 150 for depression. T/C use of clonidine, doxazosin, prazosin for PTSD-related Sx. referral for therapy/psychiatry. 01/07: no ativan, no w/drawal Sx. DC CIWA and ativan PRNs. start doxazosin 1 mg QHS. continue Tx as is otherwise. 01/08: slept well. increase doxazosin to 2 mg QHS, decrease trazodcone to 100 mg QHS. improved. continue current mgmt otherwise. 01/09: slept well again, mood remains improved. increase doxazosin to 3 mg QHS, DC trazodone PRNs. 01/10: slept well, feels well, declines any medication changes. continue current mgmt. DC weds or thur. 01/11: increase doxazosin to 4 mg QHS for sleep and BP. otherwise continue current mgmt. 01/12: feeling well, would like to stay with present regimen. hoping to discharge soon. continue current mgmt, discharge wed or prosper. 01/13: doing well, no changes. planning for discharge. planning to attend [facility]. Reason for continued inpatient stay Substantial Risk for: harm to self, harm to others, inability to function and rapid decompensation Time Spent With Patient Time: Total time managing care of this patient today __25__ minutes.
[2024-01-14 16:48] LABS: Glucose, Whole Blood 162 mg/dL (60-115)
[2024-01-14 20:00] VITALS: BP 153/80; PULSE 88; RESP 16; TEMP 37; O2SAT 97
[2024-01-14 21:05] LABS: Glucose, Whole Blood 268 mg/dL (60-115)
[2024-01-14 21:22] VITALS: BP 148/85; PULSE 72; O2SAT 96
[2024-01-14] MEDS: traZODone HCL 100 MG TABLET PO (21:33)
[2024-01-14] MEDS: Doxazosin Mesylate 2 MG TABLET 4 MG PO (21:33)
[2024-01-14] MEDS: Insulin Glargine,Hum.rec.anlog 100 UNIT/ML 10 ML VIAL 24 UNIT SUBCUT (21:36)
[2024-01-15] MEDS: Omeprazole 20 MG CAPSULE.DR PO ×2 (06:18→17:04)
[2024-01-15 07:47] LABS: Glucose, Whole Blood 156 mg/dL (60-115)
[2024-01-15 07:56] VITALS: BP 123/63; PULSE 63; RESP 16; TEMP 36.7; O2SAT 97
[2024-01-15] MEDS: Insulin Lispro 100 UNIT/ML 3 ML VIAL SUBCUT ×4 (08:22→21:52)
[2024-01-15] MEDS: buPROPion HCl XL 150 MG TAB.ER.24H PO (08:23)
[2024-01-15] MEDS: FLUoxetine HCl 20 MG CAPSULE 40 MG PO (08:24)
[2024-01-15] MEDS: metFORMIN HCl 500 MG TABLET PO ×2 (08:24→17:04)
[2024-01-15] MEDS: Labetalol HCL 200 MG TABLET PO ×2 (08:24→21:53)
[2024-01-15 12:18] LABS: Glucose, Whole Blood 185 mg/dL (60-115)
--- NOTE | 2024-01-15 15:49 | HO.PSYCHPN ---
Subjective Subjective Date of Service: 01/15/24 Reason For Visit: SI Subjective Notes: Conditional Voluntary Guardianship: No Interim History: Patient seen psychiatric evaluation chart reviewed case reviewed with nursing staff. Patient with some anxiety future oriented feels safe for discharge tomorrow will be attending [facility]. Has been on fluoxetine and Wellbutrin no SI.understands needs to make amends Mental Status Exam Mental Status Exam Narrative: adequately dressed and groomed. has alicia . cooperative, no PMA/PMR. speech nl rate . nml loudness, t. thoughts linear and logical. affect full range, normo-intense, non-labile. mood improved.some anxiety no SI/SIBI/HI/AVH no psychosis Diagnostics Vital Signs (24Hr): Vital Signs - 24 hr 01/14/24 20:00 01/14/24 21:22 01/15/24 07:56 Temperature 98.6 F 98.0 F Pulse Rate 88 72 63 Respiratory Rate 16 16 Blood Pressure 153/80 H 148/85 H 123/63 Pulse Oximetry 97 96 97 Oxygen Delivery Method Room Air Room Air Room Air BMI result Body Mass Index 34.2 Labs 01/05/24 22:47 01/14/24 09:41 Labs: Laboratory Results - last 48 hr 01/13/24 01/13/24 01/14/24 16:32 20:38 07:55 Creatinine Estim Creat Clear Calc Estimated GFR POC Glucose 235 H 179 H 191 H 01/14/24 01/14/24 01/14/24 09:41 11:46 16:40 Creatinine 1.49 H Estim Creat Clear Calc 75.7 Estimated GFR 50 POC Glucose 162 H 162 H 01/14/24 01/15/24 01/15/24 21:02 07:38 11:57 Creatinine Estim Creat Clear Calc Estimated GFR POC Glucose 268 H 156 H 185 H Medications Medications Current Medications Acetaminophen (Acetaminophen 325 Mg Tablet) 650 mg PO Q6H PRN PRN Reason: Headache/Pain Mild Scale (1-3) Bupropion HCl (Bupropion Hcl Xl 150 Mg Tab.Er.24h) 150 mg PO DAILY [facility] Last Admin: 01/15/24 08:23 Dose: 150 mg Calcium Carbonate (Calcium Carbonate 750 Mg Tab.Chew) 750 mg PO Q4H PRN PRN Reason: Heartburn Last Admin: 01/12/24 15:51 Dose: 750 mg Doxazosin Mesylate (Doxazosin Mesylate 2 Mg Tablet) 4 mg PO BEDTIME [facility]; Protocol Last Admin: 01/14/24 21:33 Dose: 4 mg Fluoxetine HCl (Fluoxetine Hcl 20 Mg Capsule) 40 mg PO DAILY [facility] Last Admin: 01/15/24 08:24 Dose: 40 mg Glucose (Glucose Gel 15 Gm Gel..Gram.) 15 gm PO Q15M PRN; Protocol PRN Reason: per Hypoglycemia Standing Ord. Glucose (Glucose Gel 15 Gm Gel..Gram.) 15 gm PO Q15M PRN; Protocol PRN Reason: per Hypoglycemia Standing Ord. Hydroxyzine HCl (Hydroxyzine Hcl 25 Mg Tablet) 25 mg PO Q6H PRN PRN Reason: Anxiety Insulin Glargine (Insulin Glargine,Hum.Rec.Anlog 100 Unit/Ml 10 Ml Vial) 24 unit SUBCUT BEDTIME [facility] Last Admin: 01/14/24 21:36 Dose: 24 unit Insulin Human Lispro (Insulin Lispro 100 Unit/Ml 3 Ml Vial) 0 unit SUBCUT QIDACHS [facility]; Protocol Last Admin: 01/15/24 12:18 Dose: 2 unit Labetalol HCl (Labetalol Hcl 200 Mg Tablet) 200 mg PO BID [facility]; Protocol Last Admin: 01/15/24 08:24 Dose: 200 mg Magnesium Hydroxide (Milk Of Magnesia 30 Ml Oral.Susp) 30 ml PO DAILY PRN PRN Reason: Constipation Metformin HCl (Metformin Hcl 500 Mg Tablet) 500 mg PO BIDWM [facility] Last Admin: 01/15/24 08:24 Dose: 500 mg Nicotine Polacrilex (Nicotine Polacrilex 2 Mg Gum) 4 mg BUCCAL Q2H PRN PRN Reason: Nicotine Cravings Omeprazole (Omeprazole 20 Mg Capsule.Dr) 20 mg PO BID@0630,1630 [facility] Last Admin: 01/15/24 06:18 Dose: 20 mg Trazodone HCl (Trazodone Hcl 100 Mg Tablet) 100 mg PO BEDTIME [facility] Last Admin: 01/14/24 21:33 Dose: 100 mg Allergies Allergies Allergy/AdvReac Type Severity Reaction Status Date / Time No Known Allergies Allergy Verified 01/05/24 22:53 [No Known Allergies*] Assessment & Plan Assessment & Plan (1) Major depressive disorder: Status: Acute Code(s): F32.9 - Major depressive disorder, single episode, unspecified (2) PTSD (post-traumatic stress disorder): Status: Acute Code(s): F43.10 - Post-traumatic stress disorder, unspecified (3) Cocaine use disorder: Status: Acute Code(s): F14.10 - Cocaine abuse, uncomplicated (4) Alcohol use disorder: Status: Acute Code(s): F10.90 - Alcohol use, unspecified, uncomplicated Plan 01/06: ativan per [facility] protocol for AUD/withdrawal. increase prozac to 40 mg daily for depression/anxiety. restart wellbutrin XL 150 for depression. T/C use of clonidine, doxazosin, prazosin for PTSD-related Sx. referral for therapy/psychiatry. 01/07: no ativan, no w/drawal Sx. DC CIWA and ativan PRNs. start doxazosin 1 mg QHS. continue Tx as is otherwise. 01/08: slept well. increase doxazosin to 2 mg QHS, decrease trazodcone to 100 mg QHS. improved. continue current mgmt otherwise. 01/09: slept well again, mood remains improved. increase doxazosin to 3 mg QHS, DC trazodone PRNs. 01/10: slept well, feels well, declines any medication changes. continue current mgmt. DC weds or thur. 01/11: increase doxazosin to 4 mg QHS for sleep and BP. otherwise continue current mgmt. 01/12: feeling well, would like to stay with present regimen. hoping to discharge soon. continue current mgmt, discharge wed or prosper. 01/13: doing well, no changes. planning for discharge. planning to attend [facility]. 01/15/24 seems stable for d/c tomm future oriented feels not needing MAT Patient educated on: medication risk/benefits and substance abuse Informed Consent: understands Reason for continued inpatient stay Substantial Risk for: rapid decompensation Time Spent With Patient Time: Total time managing care of this patient today _30___ minutes.
[2024-01-15 16:46] LABS: Glucose, Whole Blood 192 mg/dL (60-115)
[2024-01-15 21:02] LABS: Glucose, Whole Blood 225 mg/dL (60-115)
[2024-01-15 21:30] VITALS: BP 122/83; PULSE 93; RESP 16; TEMP 36.8; O2SAT 98
[2024-01-15] MEDS: Insulin Glargine,Hum.rec.anlog 100 UNIT/ML 10 ML VIAL 24 UNIT SUBCUT (21:51)
[2024-01-15] MEDS: Doxazosin Mesylate 2 MG TABLET 4 MG PO (21:52)
[2024-01-15] MEDS: traZODone HCL 100 MG TABLET PO (21:53)
--- NOTE | 2024-01-16 06:39 | PC.NURSE ---
Requested not to be woken for Prilosec management retail intern.
[2024-01-16 07:45] LABS: Glucose, Whole Blood 202 mg/dL (60-115)
[2024-01-16 08:00] VITALS: BP 134/93; PULSE 73; RESP 16; TEMP 36.6; O2SAT 97
[2024-01-16] MEDS: Insulin Lispro 100 UNIT/ML 3 ML VIAL SUBCUT (08:36)
[2024-01-16] MEDS: FLUoxetine HCl 20 MG CAPSULE 40 MG PO (08:38)
[2024-01-16] MEDS: buPROPion HCl XL 150 MG TAB.ER.24H PO (08:38)
[2024-01-16] MEDS: Omeprazole 20 MG CAPSULE.DR PO (08:38)
[2024-01-16] MEDS: Labetalol HCL 200 MG TABLET PO (08:39)
[2024-01-16] MEDS: metFORMIN HCl 500 MG TABLET PO (08:39)
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
== END 2024-01-16 10:58 | disposition home or self-care (01) | DRG 881 ==
LOC: HO.ED 01-06 14:45 → HO.PADLT16 01-07 11:47
PROVIDERS: Emergency Medicine; Student in an Organized Health Care Education/Training Program; Admitting Provider Psychiatry & Neurology Psychiatry; Emergency Provider Emergency Medicine Emergency Medical Services; PCP Nurse Practitioner Family; Visit Provider Psychiatry & Neurology Psychiatry
DX: F32.9 Major depressive disorder, single episode, unspecified (principal); R45.851 Suicidal ideations; F43.12 Post-traumatic stress disorder, chronic; Y90.6 Blood alcohol level of 120-199 mg/100 ml; F11.21 Opioid dependence, in remission; F10.90 Alcohol use, unspecified, uncomplicated; E11.9 Type 2 diabetes mellitus without complications; Z91.51 Personal history of suicidal behavior; Z20.822 Contact with and (suspected) exposure to COVID-19; Z23 Encounter for immunization; Z79.4 Long term (current) use of insulin; Z79.84 Long term (current) use of oral hypoglycemic drugs; Z79.899 Other long term (current) drug therapy
CPT/HCPCS: 0241U; 36415; 80048; 80053; 80143; 80179; 80307; 82565; 82947; 83735; 85025; 90656; 90715; 93005; 99285; S9485

== ENCOUNTER → 2024-01-07 11:42 | Outpatient (BNV) | payer OTHER, SELFPAY | PROVIDERS: Admitting Provider Psychiatry & Neurology Psychiatry; Emergency Provider Emergency Medicine Emergency Medical Services; PCP Nurse Practitioner Family; Visit Provider Psychiatry & Neurology Psychiatry | DX: F32.2 Major depressive disorder, single episode, severe without psychotic features (principal); F14.10 Cocaine abuse, uncomplicated; F10.90 Alcohol use, unspecified, uncomplicated; F43.11 Post-traumatic stress disorder, acute | CPT/HCPCS: 90792; 99231; 99232; 99239 ==

== ENCOUNTER → 2024-01-07 11:42 | Outpatient (BNV) | payer OTHER, SELFPAY | PROVIDERS: Admitting Provider Psychiatry & Neurology Psychiatry; Emergency Provider Emergency Medicine Emergency Medical Services; PCP Nurse Practitioner Family; Visit Provider Psychiatry & Neurology Psychiatry | DX: F32.2 Major depressive disorder, single episode, severe without psychotic features (principal); F14.10 Cocaine abuse, uncomplicated; F10.90 Alcohol use, unspecified, uncomplicated; F43.11 Post-traumatic stress disorder, acute | CPT/HCPCS: 99231 ==

== ENCOUNTER 2024-01-30 10:45 | Outpatient (RCR) | payer OTHER, SELFPAY ==
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
[2024-01-20 17:53] VITALS: BP 118/72; PULSE 80; RESP 18; TEMP 37
[2024-01-20 17:54] VITALS: BMI 35.9
--- NOTE | 2024-01-20 18:18 | PC.ADMIT ---
Ulysses is a 53 year old male who presents to [facility] after being discharged [facility] [place] [facility], he reports he was discharged from on , after being admitted for suicidal ideation. Today Ulysses reports overall feeling Better, hopeful, I feel positive, motivated. He reports that he was working long hours, lacked sleep, stated I had zero coping skills, reported that he utilize alcohol and substance As a go to for impulse control. Ulysses denied endorsing depression, anxiety, he denied auditory or visual hallucinations. When asked if he had any thoughts of wanting to hurt self or kill self stated No, when asked if he had any thoughts of wanting to hurt or kill others stated 'No. Ulysses reports that he would like to gain Good coping skills, that's something I would like to work on. He reports he has a good support system My and daughter are amazing. He reports he just got set up with a primary care provider, Ulysses is alert and oriented X4, speech is clear and concise, he was given a copy of his safety plan.
--- NOTE | 2024-01-23 15:33 | HO.PHP ---
Client's case has been opened and reviewed in team
--- NOTE | 2024-01-29 00:43 | P.PNPSP_ITS ---
Subjective Subjective Date of Service: 01/28/24 Reason For Visit: PTSD,MDD,AUD,TUYET Interim History: Checked in with patient. Trileptal is felt to be helpful with mood regulation and irritability. I've been really level and even . He says his has noticed a big difference and he says he is really pleased with the changes. He has been taking 300 mg BID, denies having any side effects, no sedation, which he is also happy about. 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 I just think I'm doing better now, but also I'm not too stressed . Still he has been able to tolerate frustrations and stressors that come up, and says he recognizes that there have been a few instances where he would have otherwise lost his cool had he not been on a mood stabilizer. He denies any SI, HI, AH, VH. He has been sleeping well. Appetite and energy are stable. Medication Compliance: Yes Side effects from medications: No Attending Groups: Yes Review of Systems Acute medical concerns: No Mental Status Exam Mental Status Exam Narrative: Alert, oriented, in no acute distress. Calm, cooperative, engaged. No psychomotor agitation or neurovegetative retardation. Eye contact maintained. Mood good, anxious, less reactive, affect appropriate,no irritability or lability noted. Speech normal. Thought process linear, coherent. Thought content related to stressors, less impulsive and irritable.Denies hopelessness or SI. Denies any aggressive ideation or HI. No paranoia or delusional content elicited. No evidence of psychosis. Insight intact and judgment fair-good Diagnostics Vital Signs (24Hr): BMI result Body Mass Index 35.9 Assessment & Plan Assessment & Plan (1) Major depressive disorder: Status: Acute Code(s): F32.9 - Major depressive disorder, single episode, unspecified (2) Other impulse disorders: Status: Acute Code(s): F63.89 - Other impulse disorders Assessment and Plan: Developmental hx and previous dx of ADD in childhood ADHD, likely combined type r/o other impulse control disorders (ie. Intermittent Explosive Disorder) r/o impulsive behaviors related to SIMD/substance-induced mood disorder (3) Cocaine use disorder: Status: Acute Code(s): F14.10 - Cocaine abuse, uncomplicated (4) Alcohol use disorder: Status: Acute Code(s): F10.90 - Alcohol use, unspecified, uncomplicated (5) Opioid use disorder, moderate, in sustained remission: Status: Inactive Code(s): F11.21 - Opioid dependence, in remission (6) History of developmental disorder: Status: Acute Code(s): Z87.898 - Personal history of other specified conditions Assessment and Plan: Hyperkinetic Reaction of Childhood in terrazzo finisher (eventually renamed Attention Deficit Disorder) Dyslexia both diagnosed before age 11 Plan increase oxcarbazepine to 450 mg BID to target impulsivity, irritability, reactive aggression continue other regular medications? Lab work reviewed from 01/02 (no metabolic panel, will consider obtaining) EKG and UDS as indicated Continue to monitor Patient educated on: diagnosis, medication risk/benefits and substance abuse Informed Consent: understands Reason for contiued partial hosp. stay Substantial Risk for: med/psych decompensation Certification I certify that partial hospital treatment is medically necessary due to the symptoms and problems resulting from the patient's mental illness and the failure to treat the patient at the partial hospital level of care would likely result in the patient requiring inpatient psychiatric care which could not be prevented at a less intensive level of care. Total time managing care of this patient today __30__ minutes. Discharge Plan Discharge Attending provider: Katie Barrios Medications: New oxcarbazepine 300 mg tablet 300 mg PO BID Qty: 30 0RF Continued trazodone 100 mg tablet 200 mg PO BEDTIME Patient Comments: Patient reports he takes 100mg and PRN 100mg if needed. pantoprazole 40 mg tablet,delayed release (DR/EC) 40 mg PO BID fluoxetine 20 mg Capsule 40 mg PO DAILY 30 Days Qty: 60 1RF doxazosin 2 mg Tablet 4 mg PO BEDTIME 30 Days Qty: 60 1RF Protocol: Hold for SBP< HOLD for SBP < : 90 bupropion HCl 150 mg Tablet Extended Release 24 Hr 150 mg PO DAILY 30 Days Qty: 30 1RF insulin glargine [Lantus Solostar U-100 Insulin] 100 unit/mL (3 mL) insulin pen 24 unit subcut QPM 30 Days Qty: 7.2 1RF metformin 500 mg Tablet 500 mg PO BIDWM 30 Days Qty: 60 1RF labetalol 200 mg tablet 200 mg PO BID Stand Alone Forms: Patient Portal Discharge page Print Language: [place] Telehealth Telehealth Telehealth Platform: Telephone
--- NOTE | 2024-01-30 10:54 | P.PNPSP_ITS ---
Subjective Subjective Date of Service: 01/30/24 Reason For Visit: PTSD,MDD,AUD,TUYET Interim History: Patient seen for follow-up, anticipating discharge at the end of program today.? Reports no acute issues or concerns. Medication compliant, medications well- tolerated. Denies any adverse effects.? Mood is stable.? Denies any hopelessness or SI. Denies thoughts of harming self or others at this time. Denies any aggressive ideation or HI. Denies any paranoia or AH or VH. Sleep, appetite, energy stable. Alert, oriented, in no acute distress. Calm, cooperative. Mood stable, affect appropriate. Speech normal. Thought process linear, coherent, more goal- directed. Thought content related to stressors, future-oriented, denies any helplessness, hopelessness or SI.? No aggressive ideation or HI. No paranoia or delusional content elicited. No evidence of psychosis. Insight and judgment pam r-good. Discharge from [facility] Continue regular medications Refills sent to pharmacy Will defer further medication management to outpatient provider *Safety plan reviewed *Discharge diagnoses, treatment course, discharge plan have been reviewed with patient (including medication regime, medication management, potential side effects) as well as treatment rationale were also revisited *Discharge paperwork signed and given to patient, copy sent for scanning to chart Medication Compliance: Yes Side effects from medications: No Attending Groups: Yes Review of Systems Acute medical concerns: No Diagnostics Vital Signs (24Hr): BMI result Body Mass Index 35.9 Assessment & Plan Certification I certify that partial hospital treatment is medically necessary due to the symptoms and problems resulting from the patient's mental illness and the failure to treat the patient at the partial hospital level of care would likely result in the patient requiring inpatient psychiatric care which could not be prevented at a less intensive level of care. Total time managing care of this patient today ____ minutes. Discharge Plan Discharge Attending provider: Katie Barrios Medications: New oxcarbazepine 600 mg tablet 600 mg PO .QHS Qty: 30 0RF guanfacine 1 mg tablet extended release 24 hr 1 mg PO DAILY Qty: 14 0RF lisdexamfetamine 30 mg capsule 30 mg PO QAM Qty: 20 0RF Rx Instructions: Limit to taking 5 days/week or less. Partial Fill upon patient request. Continued trazodone 100 mg tablet 200 mg PO BEDTIME Patient Comments: Patient reports he takes 100mg and PRN 100mg if needed. pantoprazole 40 mg tablet,delayed release (DR/EC) 40 mg PO BID fluoxetine 20 mg Capsule 40 mg PO DAILY 30 Days Qty: 60 1RF doxazosin 2 mg Tablet 4 mg PO BEDTIME 30 Days Qty: 60 1RF Protocol: Hold for SBP< HOLD for SBP < : 90 bupropion HCl 150 mg Tablet Extended Release 24 Hr 150 mg PO DAILY 30 Days Qty: 30 1RF insulin glargine [Lantus Solostar U-100 Insulin] 100 unit/mL (3 mL) insulin pen 24 unit subcut QPM 30 Days Qty: 7.2 1RF metformin 500 mg Tablet 500 mg PO BIDWM 30 Days Qty: 60 1RF labetalol 200 mg tablet 200 mg PO BID Changed oxcarbazepine 300 mg tablet 450 mg PO QAM Qty: 45 0RF Stand Alone Forms: Patient Portal Discharge page Patient Education: ADHD in Adults (ED), ADHD in Adults (DC), ADHD in Adults (GEN), Depression (DC), Post Traumatic Stress Disorder (DC), Polysubstance Abuse (ED) Print Language: Turkmen
--- NOTE | 2024-02-06 20:48 | PM.EVENT ---
Event Note Date of Service: 02/06/24 Event Note: Called for refill on Vyvanse. 30 mg working well, it's been a deal breaker . It's been very helpful, feeling more calm, controlled, much improved frustration tolerance. Shared examples. and family have noticed changes in his mood and behaivor. He is very happy with his meds. He is agreable to continuing Vyvanse 30 mg about 4 days a week. Reviewed routines and medication management. Sleep, appetite, energy intact. MOod stable. Continues on Trileptal 450 mg am and 600 mg pm. NO irritability or anxiety. Denies any adverse effects. Has upcoming provider appointment on 02/19. Sneding over Vyvanse 30 mg. He is all set with his other medications until then. Time Spent With Patient Time: Total time managing care of this patient today __15__ minutes.
== END 2024-01-30 23:59 | disposition home or self-care (01) ==
LOC: HO.PHPA 10:45
PROVIDERS: Visit Provider Psychiatry & Neurology Psychiatry
DX: F32.9 Major depressive disorder, single episode, unspecified (principal); F63.89 Other impulse disorders; F14.10 Cocaine abuse, uncomplicated; F10.90 Alcohol use, unspecified, uncomplicated; F11.21 Opioid dependence, in remission; Z87.898 Personal history of other specified conditions; Z79.899 Other long term (current) drug therapy
CPT/HCPCS: 90791; 90853

== ENCOUNTER 2024-08-30 05:32 | Emergency (ER) | payer OTHER, SELFPAY ==
--- NOTE | ~2024-08-30 | XR_ITS ---
CLINICAL HISTORY: r o free air under diaphragm 1 view chest x-ray Comparison: None Findings: Portion of the exam is obscured by overlying material. No consolidation or effusion. Normal size heart. No acute fracture. IMPRESSION: 1. No acute findings. This document has been electronically signed by: Guillermo Morrison MD on 08/30/2024 08:20:47
--- NOTE | ~2024-08-30 | CT_ITS ---
CLINICAL HISTORY: epigastric pain CT abdomen and pelvis with contrast Comparison: None Findings: No consolidation or effusion. There is a sliding-type hiatal hernia. The appearance of the liver suggests fatty infiltration without focal lesion. Otherwise unremarkable gallbladder and solid organs. No urolithiasis. No bowel obstruction, pneumoperitoneum, or pneumatosis. Pelvic contents unremarkable. No acute fracture. IMPRESSION: No acute findings. This document has been electronically signed by: Guillermo Morrison MD on 08/30/2024 08:24:03
[2024-08-30 05:34] VITALS: BP 188/103; PULSE 99; RESP 18; TEMP 36.6; O2SAT 100; BMI 35.3
--- NOTE | 2024-08-30 05:48 | ECG_ITS ---
Test Reason : abd pain Blood Pressure : */* mmHG Vent. Rate : 97 BPM Atrial Rate : 79 BPM P-R Int : 148 ms QRS Dur : 92 ms QT Int : 446 ms P-R-T Axes : 31 25 17 degrees QTcB Int : 566 ms Poor data quality Sinus rhythm Cannot rule out Inferior infarct (cited on or before 24-May-2019) Abnormal ECG When compared with ECG of 05-Jan-2024 22:51, poo QT has lengthened Referred By: Generic ED Physician Electronically Signed By: JERMAINE MENDEZ MD
--- NOTE | 2024-08-30 05:59 | ED_ITS ---
HPI - Abdominal Pain General Chief Complaint: Abdominal Pain Stated Complaint: n/v Time Seen by Provider: 08/30/24 05:52 Source: patient and family Mode of arrival: wheelchair Limitations: no limitations History of Present Illness ED Provider: Dr. Kathie Underwood HPI narrative: Patient comes to the emergency room complaining of severe epigastric pain. According to the patient, started approximately 3 days ago but got really bad a proximally 12 hours ago. Patient complaining of epigastric burning sensation, nausea and vomiting. Patient recently ran out of Protonix. Patient states that he feels very bloated and has not able to have a bowel movement. Patient admits that he has been using cocaine and alcohol. Related Data Home Medications ?Medication ?Instructions ?Recorded ?Confirmed labetalol 200 mg tablet 200 mg PO BID 08/19/20 01/20/24 pantoprazole 40 mg tablet,delayed 40 mg PO BID 01/06/24 01/20/24 release trazodone 100 mg tablet 200 mg PO BEDTIME 01/06/24 01/20/24 Previous Rx's ?Medication ?Instructions ?Recorded bupropion HCl 150 mg 24 hr tablet, 150 mg PO DAILY 30 days #30 tabs 01/16/24 extended release doxazosin 2 mg tablet 4 mg PO BEDTIME 30 days #60 tabs 01/16/24 fluoxetine 20 mg capsule 40 mg (2 x 20 mg) PO DAILY 30 days 01/16/24 #60 caps insulin glargine 100 unit/mL (3 24 unit (0.24 mL) subcut QPM 30 01/16/24 mL) subcutaneous pen (Lant #7.2 mL Solostar U-100 Insulin) metformin 500 mg tablet 500 mg PO BIDWM 30 days #60 tabs 01/16/24 guanfacine 1 mg tablet,extended 1 mg PO DAILY #14 tabs 01/30/24 release 24 hr oxcarbazepine 300 mg tablet 450 mg (1.5 x 300 mg) PO QAM as 01/30/24 directed #45 tabs oxcarbazepine 600 mg tablet 600 mg PO .QHS #30 tabs 01/30/24 lisdexamfetamine 30 mg capsule 30 mg PO QAM #20 caps 02/06/24 pantoprazole 40 mg tablet,delayed 40 mg PO BID 14 days #28 tabs 08/30/24 release (Protonix) Allergies Allergy/AdvReac Type Severity Reaction Status Date / Time No Known Allergies Allergy Verified 08/30/24 05:36 [No Known Allergies*] Review of Systems Review of Systems Constitutional : No Weight loss, No Fever, No Chills, No Night Sweats, No Fatigue, No Malaise ENT/Mouth : No Hearing loss, No Ear Pain, No Nasal Congestion, No Sinus Pain, No Hoarseness, No sore throat, No Rhinorrhea, No Swallowing Difficulty Eyes: No Eye Pain, No Swelling, No Redness, No Foreign Body, No Discharge, No Vision Changes Cardiovascular : No Chest Pain, No SOB, No Dyspnea on Exertion, No Orthopnea, No Edema, No Palpitations Respiratory : No Cough, No Sputum, No Wheezing, No Smoke Exposure, No Dyspnea Gastrointestinal : Of nausea vomiting, constipation, severe epigastric pain Genitourinary : no irregular bleeding, No Dysuria, No Urinary Frequency, No Hematuria, No Urinary Incontinence, No Urgency, No Flank Pain, No Urinary Flow Changes, No Hesitancy Musculoskeletal : No joint pain, No Myalgias, No Joint Swelling Skin : No Skin Lesions, No rash Neuro : No Weakness, No Numbness, No Paresthesias, No Loss of Consciousness, No Dizziness, No Headache Psych : No Anxiety/Panic, No Depression, No SI/HI/AH/VH, No Social Issues, Heme/Lymph: No Bruising, No Bleeding,No Lymphadenopathy Endocrine : No Polyuria, No Polydipsia, No Temperature Intolerance PMF Past Medical History Attestation statement: The following information was validated with the patient. Source: old records reviewed and nursing notes reviewed Medical History Major depressive disorder Cocaine use disorder Alcohol use disorder Diabetes mellitus, type II, insulin dependent Hypertension GERD (gastroesophageal reflux disease) Opioid use disorder, moderate, in sustained remission Surgical History S/P appendectomy Hx of hernia repair S/P tonsillectomy S/P rotator cuff repair Hx of hand surgery Social History Social History Household Members: Family Housing: House Do you presently have visiting nurse or other home services: No Alcohol intake: current Alcohol type: beer, wine and hard liquor Patient Tobacco Use Status: Never used Tobacco Substance Use Type: Crack/Cocaine and Marijuana Advance Directives: No Advance Directives Information Provided: Yes Do you have a plan to hurt others: No Plan Sexual orientation: Straight/Heterosexual Physical Exam ED Vital Signs: Vital Signs - 24 hr 08/30/24 05:34 08/30/24 06:31 08/30/24 09:11 Temperature 97.9 F 98.4 F 98.1 F Pulse Rate 99 87 84 Respiratory Rate 18 17 11 L Blood Pressure 188/103 H 171/103 H 131/82 Pulse Oximetry 100 99 96 Oxygen Delivery Method Room Air Room Air Room Air BMI result Body Mass Index 35.3 Const Other: Appearance: Alert. Oriented X3. Seems very uncomfortable, very anxious Eyes: Pupils equal, round and reactive to light. ENT: Pharynx normal. Neck: Normal inspection. Neck supple. No lymph nodes noted. No crepitus CVS: Normal heart rate and rhythm. Pulses normal. Normal S1 and S2 Respiratory: No respiratory distress. Breath sounds normal. No Wheezing. No rales Abdomen: Soft, nondistended, pain to palpation in upper right and left quadrant and epigastric area. Skin: Skin warm and dry. Normal skin color. Normal skin turgor. Extremities: No lower extremity edema. No Lacerations. No Rash Neuro: Oriented X 3. No motor deficit. No sensory deficit. Moving all extremities. No slurred speech. CN 2 through 12 grossly intact Psych: Very anxious, tearful Course Course Course Narrative: Patient receiving IV fluids, IV morphine 4 mg, Zofran, Protonix and 2.5 mg of diazepam First EKG was done, poor quality, patient moving too much. It is to be repeated. Patient's nurse and tech aware. We will medicate the patient and then we will repeat the EKG Reevaluation(s) Reevaluation #1: Received patient in sign-out pending imaging and disposition. I have reviewed all labs: CBC without leukocytosis. No anemia. H&H stable. Chemistry without acute electrolyte abnormality requiring intervention. no tg. random glucose 298. trop wnl at 10.8. Ethanol undetectable. Chest x-ray unremarkable. No findings concerning for aspiration pneumonia. CT abdomen/pelvis without evidence of bowel obstruction. Initial EKG pathology. Patient restless, moving too much. repeat at 0600 this morning showing NSR w/ sinus arrhythmia. no acute ischemic changes. will repeat. Patient was treated w/ IVF, IV morphine, zofran On re-evaluation, patient is lying comfortably in bed, in good spirits. states he feels significantly improved. willing to trial water/ crackers. no complaints at present. He tells me he recently ran out of his protonix 20mg BID. will send 2 week script to pharmacy. 09 -- repeat ekg nsr with rate 85 bpm, qt 414. no acute ischemic changes or st elevations. tolerating PO. Patient has remained stable throughout ED visit today. Discussed worrisome signs and symptoms and when to return to the ED. All questions answered at this time. Patient is agreeable with disposition and stable for discharge. Medical Decision Making Medical Decision Making [facility] Narrative: My interpretation of chest x-ray, no obvious abnormality, no free air under the diaphragm My interpretation of labs: No significant abnormality in patient's hematology and chemistry, normal LFTs and lipase, ETOH negative Patient's seemed to him some pain relief after a dose of morphine, Dilaudid and IV Valium CT scan of the abdomen/pelvis pending Sign out given to my colleague Dr. Wooten Differential Diagnosis Differential Diagnoses: The differential diagnosis associated with the presentation includes (Gastritis, peptic ulcer disease, perforated ulcer, SBO, pancreatitis, acute cholecystitis) Admission/Observation Consideration of admission/observation: Escalation of care including admission/observation considered (Given patient's presentation, admission was considered) Lab Data [facility] Lab Attestation statement: I reviewed the patient's lab results. 08/30/24 06:16 08/30/24 06:16 Labs: Lab Results 08/30/24 Range/Units 06:16 WBC 10.8 (4.8-10.8) X10*3/uL RBC 5.30 (4.60-5.80) X10*6/uL Hgb 15.9 (14.0-18.0) g/dl Hct 43.0 (42.0-52.0) % MCV 81.1 (80.0-98.0) fL MCH 30.0 (27.0-33.0) pg MCHC 37.0 H (31.0-36.0) g/dl RDW 12.1 (11.0-16.0) % Plt Count 185 (160-400) X10*3/uL MPV 10.7 (9.4-12.4) fL Immature Gran % (Auto) 0.5 H (0.0-0.4) % Neut % (Auto) 74.2 H (45-73) % Lymph % (Auto) 20.5 (20-40) % [place] % (Auto) 4.5 (2-11) % Eos % (Auto) 0.1 (0-4) % Baso % (Auto) 0.2 (0-2) % Lymph # (Auto) 2.2 (1.2-4.9) X10*3/uL [place] # (Auto) 0.5 (0.1-1.2) X10*3/uL Eos # (Auto) 0.0 (0.0-0.4) X10*3/uL Baso # (Auto) 0.0 (0.0-0.2) X10*3/uL Abs Immat Gran (auto) 0.05 H (0.00-0.03) X10*3/uL Absolute Neuts (auto) 8.0 (2.0-8.3) x10*3/uL Absolute Nucleated RBC 0.000 (0.0-0.012) X10*3/uL Nucleated RBC % (auto) 0.0 (0.0-0.2) /100WBC Sodium 139 (135-145) mmol/L Potassium 4.0 (3.3-5.1) mmol/L Chloride 104 (96-108) mmol/L Carbon Dioxide 17 L (22-29) mmol/L Anion Gap 22 H (12-20) BUN 16 (9-16) mg/dL Creatinine 0.98 (0.5-1.4) mg/dL Estim Creat Clear Calc 115.5 Estimated GFR > 60 Random Glucose 298 H (60-115) mg/dL Calcium 10.2 D (8.4-10.2) mg/dL Total Bilirubin 0.8 (0.0-1.0) mg/dL Direct Bilirubin 0.2 (0.0-0.5) mg/dL AST 31 (5-37) U/L ALT 33 (0-40) U/L Alkaline Phosphatase 90 (39-117) U/L Troponin I High Sens 10.8 (<3.5-35.0) ng/L Total Protein 8.1 H (6.5-8.0) g/dL Albumin 4.9 (3.5-5.0) g/dL Lipase 34 (8-78) U/L Ethyl Alcohol < 10 mg/dL Medications Administered Discontinued Medications Generic Name Dose Route Start Last Admin Trade Name Marlen PRN Reason Stop Dose Admin Diazepam 2.5 mg 08/30/24 05:56 08/30/24 06:03 Diazepam 10 Mg/2 Ml Cartridge IVPUSH 08/30/24 05:57 2.5 mg STAT STA Administration Hydromorphone HCl 1 mg 08/30/24 06:46 08/30/24 07:00 Hydromorphone Hcl 1 Mg/Ml Syringe IVPUSH 08/30/24 06:47 1 mg ONCE ONE Administration Protocol Sodium Chloride 1,000 mls @ 999 mls/hr 08/30/24 05:56 08/30/24 07:14 Ns IVCONT 08/30/24 06:56 Infused .Q1H1M ONE Infusion Iohexol 100 ml 08/30/24 07:30 08/30/24 07:30 Iohexol 350 Mg/Ml 100 Ml Infus..Btl IV 08/30/24 07:31 85 ml ONCE ONE Administration Morphine Sulfate 4 mg 08/30/24 05:56 08/30/24 06:04 Morphine Sulfate 4 Mg/Ml Cartridge IVPUSH 08/30/24 05:57 4 mg ONCE ONE Administration Protocol Ondansetron HCl 4 mg 08/30/24 05:56 08/30/24 06:04 Ondansetron Hcl 4 Mg/2 Ml Vial IVPUSH 08/30/24 05:57 4 mg ONCE ONE Administration Pantoprazole Sodium 40 mg 08/30/24 05:56 08/30/24 06:04 Pantoprazole Sodium 40 Mg/10 Ml Vial IVPUSH 08/30/24 05:57 40 mg ONCE ONE Administration Critical Care Time Critical Care Time Critical Care Time: Yes Total Critical Care Time: 60 Attestation: I have personally provided critical care time. Time includes review of lab data, radiology results, discussion with consultants, and monitoring for potential decompensation. Intervention performed as documented. Discharge Plan Discharge Clinical Impression: Gastritis Patient Disposition: Home, Self-Care Instructions: Gastritis (ED) Additional Instructions: Your work up today is reassuring. I am sending a two week refill of protonix to your pharmacy. Please follow up with your outpatient providers. Return with any new or worsening symptoms. In the case of an emergency call 911. Prescriptions: New pantoprazole [Protonix] 40 mg tablet,delayed release (DR/EC) 40 mg PO BID 14 Days Qty: 28 0RF No Action trazodone 100 mg tablet 200 mg PO BEDTIME Patient Comments: Patient reports he takes 100mg and PRN 100mg if needed. pantoprazole 40 mg tablet,delayed release (DR/EC) 40 mg PO BID fluoxetine 20 mg Capsule 40 mg PO DAILY 30 Days Qty: 60 1RF doxazosin 2 mg Tablet 4 mg PO BEDTIME 30 Days Qty: 60 1RF Protocol: Hold for SBP< HOLD for SBP < : 90 bupropion HCl 150 mg Tablet Extended Release 24 Hr 150 mg PO DAILY 30 Days Qty: 30 1RF insulin glargine [Lantus Solostar U-100 Insulin] 100 unit/mL (3 mL) insulin pen 24 unit subcut QPM 30 Days Qty: 7.2 1RF metformin 500 mg Tablet 500 mg PO BIDWM 30 Days Qty: 60 1RF oxcarbazepine 300 mg tablet 450 mg PO QAM Qty: 45 0RF oxcarbazepine 600 mg tablet 600 mg PO .QHS Qty: 30 0RF guanfacine 1 mg tablet extended release 24 hr 1 mg PO DAILY Qty: 14 0RF lisdexamfetamine 30 mg capsule 30 mg PO QAM Qty: 20 0RF Rx Instructions: Limit to taking 5 days/week or less. Partial Fill upon patient request. labetalol 200 mg tablet 200 mg PO BID Referrals: Ernesto Estrada NP [Primary Care Provider] - Print Language: Romanian
[2024-08-30] MEDS: diazePAM 10 MG/2 ML CARTRIDGE 2.5 MG IVPUSH (06:03)
[2024-08-30] MEDS: Pantoprazole Sodium 40 MG/10 ML VIAL IVPUSH (06:04)
[2024-08-30] MEDS: ondansetron HCL 4 MG/2 ML VIAL IVPUSH (06:04)
[2024-08-30] MEDS: Morphine Sulfate 4 MG/ML CARTRIDGE IVPUSH (06:04)
[2024-08-30] MEDS: 0.9 % Sodium Chloride 1,000 ML 999 ML IVCONT (06:11)
[2024-08-30 06:28] LABS: MANUAL DIFF FLAG NO
[2024-08-30 06:31] VITALS: BP 171/103; PULSE 87; RESP 17; TEMP 36.9; O2SAT 99
[2024-08-30 06:36] LABS: Alkaline Phosphatase 90 U/L (39-117)
[2024-08-30 06:40] LABS: Troponin-I High Sensitivity 10.8 ng/L (<3.5-35.0)
[2024-08-30 06:42] LABS: Alanine Aminotransferase 33 U/L (0-40); Albumin Level 4.9 g/dL (3.5-5.0); Anion Gap 22 (12-20); Aspartate Amino Transferase 31 U/L (5-37); Bilirubin Total 0.8 mg/dL (0.0-1.0); Blood Urea Nitrogen 16 mg/dL (9-16); Calcium 10.2 mg/dL (8.4-10.2); Carbon Dioxide 17 mmol/L (22-29); Chloride 104 mmol/L (96-108); Creatinine Clr Calc Pharmacy 115.5; Estimated Glomerular Filt Rate > 60; Glucose Random 298 mg/dL (60-115); Sodium 139 mmol/L (135-145); Total Protein 8.1 g/dL (6.5-8.0)
[2024-08-30 06:56] LABS: Bilirubin Direct 0.2 mg/dL (0.0-0.5); Ethanol < 10 mg/dL; Lipase 34 U/L (8-78)
[2024-08-30] MEDS: HYDROmorphone HCl 1 MG/ML SYRINGE IVPUSH (07:00)
[2024-08-30 07:04] LABS: Basophils Percent Auto 0.2 % (0-2); Eosinophils Percent Auto 0.1 % (0-4); Hemoglobin 15.9 g/dl (14.0-18.0); Imm Gran Abs Auto 0.05 X10*3/uL (0.00-0.03); Imm Gran Pct Auto 0.5 % (0.0-0.4); Lymphocytes Absolute Auto 2.2 X10*3/uL (1.2-4.9); Lymphocytes Percent Auto 20.5 % (20-40); Mean Corpuscular Volume 81.1 fL (80.0-98.0); Mean Platelet Volume 10.7 fL (9.4-12.4); Monocytes Absolute Auto 0.5 X10*3/uL (0.1-1.2); Monocytes Percent Auto 4.5 % (2-11); Neutrophils Percent Auto 74.2 % (45-73); Platelet Count 185 X10*3/uL (160-400); Red Cell Distribution Width 12.1 % (11.0-16.0); White Blood Count 10.8 X10*3/uL (4.8-10.8)
[2024-08-30] MEDS: iohexoL 350 MG/ML 100 ML INFUS..BTL IV (07:30)
--- NOTE | 2024-08-30 09:02 | ECG_ITS ---
Test Reason : CHEST PAIN Blood Pressure : */* mmHG Vent. Rate : 86 BPM Atrial Rate : 86 BPM P-R Int : 160 ms QRS Dur : 86 ms QT Int : 414 ms P-R-T Axes : 4 -4 -1 degrees QTcB Int : 495 ms Normal sinus rhythm Cannot exclude old Inferior infarct (cited on or before ; could also be normal variant. Borderline ECG When compared with ECG of 30-Aug-2024 05:56, QT has shortened Referred By: Trini Parrish Electronically Signed By: BERENICE SPENCER
[2024-08-30 09:11] VITALS: BP 131/82; PULSE 84; RESP 11; TEMP 36.7; O2SAT 96
[2024-08-30 09:37] VITALS: BP 131/82; PULSE 84; RESP 11; TEMP 36.7; O2SAT 96
== END 2024-08-30 09:37 | disposition home or self-care (01) ==
PROVIDERS: Emergency Provider Emergency Medicine; PCP Nurse Practitioner Family
DX: R10.13 Epigastric pain (principal); R11.2 Nausea with vomiting, unspecified; I10 Essential (primary) hypertension; K21.9 Gastro-esophageal reflux disease without esophagitis; E11.9 Type 2 diabetes mellitus without complications; Z79.4 Long term (current) use of insulin; Z79.899 Other long term (current) drug therapy
CPT/HCPCS: 36415; 71045; 74177; 80053; 80307; 82248; 83690; 84484; 85025; 93005; 96361; 96374; 96375; 99284; J1171; J2270; J2405; J2470; J3360; Q9967

== ENCOUNTER → 2024-08-30 05:48 | Outpatient (BNV) | payer OTHER, SELFPAY | PROVIDERS: Emergency Provider Emergency Medicine; PCP Nurse Practitioner Family; Visit Provider Internal Medicine Cardiovascular Disease | DX: R07.9 Chest pain, unspecified (principal) | CPT/HCPCS: 93010 ==

== ENCOUNTER → 2024-08-30 05:57 | Outpatient (BNV) | payer OTHER, SELFPAY | PROVIDERS: Emergency Provider Emergency Medicine; PCP Nurse Practitioner Family; Visit Provider Specialist | DX: R10.13 Epigastric pain (principal) | CPT/HCPCS: 71045; 74177 ==

== ENCOUNTER 2024-08-31 15:41 | Inpatient (IN) | payer OTHER, SELFPAY ==
[2024-08-31 15:53] VITALS: BP 156/91; BP 170/100; PULSE 71; PULSE 75; RESP 14; TEMP 36.5; O2SAT 100; BMI 34.1
[2024-08-31 15:57] VITALS: BP 156/91; PULSE 71; RESP 14; TEMP 36.5; O2SAT 100
--- NOTE | 2024-08-31 16:00 | PC.NURSE ---
Patient presents to ED c/o abdominal pain rated 10/10 non radiating. Patient [place] [facility] [place] ?[place]. Patient states I was feeling fine, mowing my lawn and the pain came back . Patient c/o n/v no blood noted. Denies injury. Abdomen soft but tender, +bowel sounds. Patient hypertensive 156/91 all other VSS. Call [facility] in reach plan of are on going
[2024-08-31] MEDS: Lactated Ringers 1,000 ML 999 ML IV ×2 (16:14→17:41)
--- NOTE | 2024-08-31 16:16 | ECG_ITS ---
Test Reason : ABDOMINAL PAIN Blood Pressure : */* mmHG Vent. Rate : 62 BPM Atrial Rate : 62 BPM P-R Int : 152 ms QRS Dur : 90 ms QT Int : 464 ms P-R-T Axes : -5 0 -8 degrees QTcB Int : 470 ms Normal sinus rhythm Normal ECG When compared with ECG of 30-Aug-2024 09:09, No significant change was found Referred By: Krystian White Electronically Signed By: BERENICE SPENCER
--- NOTE | 2024-08-31 16:17 | ED_ITS ---
HPI - Abdominal Pain General Chief Complaint: Abdominal Pain Stated Complaint: UPPER STOMACH PAIN PER EMS Time Seen by Provider: 08/31/24 15:58 History of Present Illness ED Provider: Krystian White MD HPI narrative: [age] male with gastritis, insulin-dependent diabetes your 2 days ago nausea vomiting with some improvement overnight and over the past 24 hours. Has been drinking alcohol. Arrived a retching subjective abdominal distention epigastric pain no GI bleeding. Denies fevers or abdominal trauma Related Data Home Medications ?Medication ?Instructions ?Recorded ?Confirmed labetalol 200 mg tablet 200 mg PO BID 08/19/20 08/31/24 pantoprazole 40 mg tablet,delayed 40 mg PO BID@0630,1630 01/06/24 08/31/24 release trazodone 100 mg tablet 200 mg PO BEDTIME 01/06/24 08/31/24 acetaminophen 500 mg tablet 1,000 mg PO Q6H PRN Pain 08/31/24 08/31/24 doxazosin 4 mg tablet 4 mg PO BEDTIME 08/31/24 08/31/24 dulaglutide 1.5 mg/0.5 mL 1.5 mg subcut QWEEK 08/31/24 08/31/24 subcutaneous pen injector (Trulicity) insulin glargine-yfgn 100 unit/mL 24 unit subcut BEDTIME 08/31/24 08/31/24 (3 mL) subcutaneous pen lisdexamfetamine 50 mg capsule 50 mg PO DAILY PRN focus/adhd 08/31/24 08/31/24 metformin 500 mg tablet 1,000 mg PO BIDWM 08/31/24 08/31/24 oxcarbazepine 600 mg tablet 600 mg PO BID 08/31/24 08/31/24 Previous Rx's ?Medication ?Instructions ?Recorded bupropion HCl 150 mg 24 hr tablet, 150 mg PO DAILY 30 days #30 tabs 01/16/24 extended release fluoxetine 20 mg capsule 40 mg (2 x 20 mg) PO DAILY 30 days 01/16/24 #60 caps Allergies Allergy/AdvReac Type Severity Reaction Status Date / Time No Known Allergies Allergy Verified 08/31/24 15:56 [No Known Allergies*] PMFSH Past Medical History Medical History Major depressive disorder Cocaine use disorder Alcohol use disorder Diabetes mellitus, type II, insulin dependent Hypertension GERD (gastroesophageal reflux disease) Opioid use disorder, moderate, in sustained remission Surgical History S/P appendectomy Hx of hernia repair S/P tonsillectomy S/P rotator cuff repair Hx of hand surgery Social History Social History Household Members: Family Housing: House Do you presently have visiting nurse or other home services: No Alcohol intake: current Alcohol type: beer, wine and hard liquor Patient Tobacco Use Status: Never used Tobacco Smoked in Last 30 Days: No Use of substances other than those prescribed or required for medical reasons: Yes Substance Use Type: Marijuana Substance Use Frequency: Monthly Last Used Substance: Days (ago) Advance Directives: No Advance Directives Information Provided: No Do you have a plan to hurt others: No Plan Sexual orientation: Straight/Heterosexual Physical Exam ED Vital Signs: Vital Signs - 24 hr 08/31/24 15:53 08/31/24 15:57 08/31/24 18:57 Temperature 97.7 F 97.7 F Pulse Rate 71 71 71 Respiratory Rate 14 14 22 H Blood Pressure 156/91 H 156/91 H 188/95 H Pulse Oximetry 100 100 97 Oxygen Delivery Method Room Air Room Air Room Air 08/31/24 19:55 Temperature Pulse Rate Respiratory Rate 16 Blood Pressure Pulse Oximetry Oxygen Delivery Method BMI result Body Mass Index 34.1 Const Other: EXAM: Gen: Alert, ill-appearing vomiting clammy skin Head: Atraumatic Eyes: Anicteric, Normal conjunctiva. ENT: Moist mucosa, no pallor. ? Neck: Supple. Respiratory: Breathing comfortably, No distress.Clear to auscultation bilaterally, symmetric chest expansion, No wheeze, rales, ronchi. Cardiovascular: Regular rate and rhythm. No murmurs or rub. Well perfused periphery, warm extremities. No edema. ? Abdominal: Mild epigastric tenderness on deep palpation only. Soft, no objective distension. No palpable masses or obvious organomegaly. ?No guarding, no rebound tenderness or other peritoneal findings. : No flank tenderness. Neuro: Alert. Gross movement of all extremities intact. ? Psych: In distressed appears anxious and uncomfortable in pain MSK: No grossly visible deformity. Vital signs: See flowsheet Medical Decision Making Medical Decision Making MDM Narrative: 54-year-old male with insulin dependent diabetes presumed gastritis, alcohol use with nausea vomiting abdominal pain. Recently here with anion gap and acidosis on chemistry. We will screen for DKA, HHS with labs. Hydration symptomatic relief with analgesia and antiemetics. Possible component of alcohol withdrawal, continue with Valium Differential Diagnosis Differential Diagnoses: The differential diagnosis associated with the presentation includes Gastritis, PUD, gastroparesis, esophagitis, alcohol use disorder, electrolyte derangement, dehydration, pancreatitis given location unlikely biliary pathology Admission/Observation Consideration of admission/observation: Escalation of care including admission/observation considered Consult Healthcare Provider Management of the patient was discussed with: Hospitalist Lab Data [facility] Lab Attestation statement: I reviewed the patient's lab results. 08/31/24 16:13 08/31/24 16:13 Labs: Lab Results 08/31/24 08/31/24 08/31/24 Range/Units 16:13 16:20 17:38 WBC 8.8 (4.8-10.8) X10*3/uL RBC 5.20 (4.60-5.80) X10*6/uL Hgb 15.8 (14.0-18.0) g/dl Hct 42.2 (42.0-52.0) % MCV 81.2 (80.0-98.0) fL MCH 30.4 (27.0-33.0) pg MCHC 37.4 H (31.0-36.0) g/dl RDW 12.1 (11.0-16.0) % Plt Count 156 L (160-400) X10*3/uL MPV 10.0 (9.4-12.4) fL Immature Gran % (Auto) 0.3 (0.0-0.4) % Neut % (Auto) 79.4 H (45-73) % Lymph % (Auto) 15.9 L (20-40) % Franklin % (Auto) 4.2 (2-11) % Eos % (Auto) 0.0 (0-4) % Baso % (Auto) 0.2 (0-2) % Lymph # (Auto) 1.4 (1.2-4.9) X10*3/uL Franklin # (Auto) 0.4 (0.1-1.2) X10*3/uL Eos # (Auto) 0.0 (0.0-0.4) X10*3/uL Baso # (Auto) 0.0 (0.0-0.2) X10*3/uL Abs Immat Gran (auto) 0.03 (0.00-0.03) X10*3/uL Absolute Neuts (auto) 6.9 (2.0-8.3) x10*3/uL Absolute Nucleated RBC 0.000 (0.0-0.012) X10*3/uL Nucleated RBC % (auto) 0.0 (0.0-0.2) /100WBC VBG pH 7.60 H* (7.32-7.43) VBG pCO2 19 mmHg VBG pO2 47 mmHg VBG HCO3 19 L (22-26) mmol/L VBG O2 Saturation 81.0 % VBG Base Excess 1.1 mmol/L Sodium 139 (135-145) mmol/L Potassium 4.0 (3.3-5.1) mmol/L Chloride 104 (96-108) mmol/L Carbon Dioxide 19 L (22-29) mmol/L Anion Gap 20 (12-20) BUN 15 (9-16) mg/dL Creatinine 1.14 (0.5-1.4) mg/dL Estim Creat Clear Calc 97.6 Estimated GFR > 60 POC Glucose 245 H (60-115) mg/dL Random Glucose 287 H (60-115) mg/dL Calcium 9.6 (8.4-10.2) mg/dL Phosphorus 0.5 L* (2.7-4.5) mg/dL Magnesium 1.9 (1.6-2.6) mg/dL Total Bilirubin 1.0 (0.0-1.0) mg/dL AST 43 H (5-37) U/L ALT 41 H (0-40) U/L Alkaline Phosphatase 82 (39-117) U/L Total Protein 7.6 (6.5-8.0) g/dL Albumin 4.7 (3.5-5.0) g/dL Beta-Hydroxybutyrate 1.73 H (0.02-0.27) mmol/L Ethyl Alcohol < 10 mg/dL 06/02/25 Range/Units 19:21 WBC (4.8-10.8) X10*3/uL RBC (4.60-5.80) X10*6/uL Hgb (14.0-18.0) g/dl Hct (42.0-52.0) % MCV (80.0-98.0) fL MCH (27.0-33.0) pg MCHC (31.0-36.0) g/dl RDW (11.0-16.0) % Plt Count (160-400) X10*3/uL MPV (9.4-12.4) fL Immature Gran % (Auto) (0.0-0.4) % Neut % (Auto) (45-73) % Lymph % (Auto) (20-40) % Franklin % (Auto) (2-11) % Eos % (Auto) (0-4) % Baso % (Auto) (0-2) % Lymph # (Auto) (1.2-4.9) X10*3/uL Franklin # (Auto) (0.1-1.2) X10*3/uL Eos # (Auto) (0.0-0.4) X10*3/uL Baso # (Auto) (0.0-0.2) X10*3/uL Abs Immat Gran (auto) (0.00-0.03) X10*3/uL Absolute Neuts (auto) (2.0-8.3) x10*3/uL Absolute Nucleated RBC (0.0-0.012) X10*3/uL Nucleated RBC % (auto) (0.0-0.2) /100WBC VBG pH (7.32-7.43) VBG pCO2 mmHg VBG pO2 mmHg VBG HCO3 (22-26) mmol/L VBG O2 Saturation % VBG Base Excess mmol/L Sodium (135-145) mmol/L Potassium (3.3-5.1) mmol/L Chloride (96-108) mmol/L Carbon Dioxide (22-29) mmol/L Anion Gap (12-20) BUN (9-16) mg/dL Creatinine (0.5-1.4) mg/dL Estim Creat Clear Calc Estimated GFR POC Glucose 179 H (60-115) mg/dL Random Glucose (60-115) mg/dL Calcium (8.4-10.2) mg/dL Phosphorus (2.7-4.5) mg/dL Magnesium (1.6-2.6) mg/dL Total Bilirubin (0.0-1.0) mg/dL AST (5-37) U/L ALT (0-40) U/L Alkaline Phosphatase (39-117) U/L Total Protein (6.5-8.0) g/dL Albumin (3.5-5.0) g/dL Beta-Hydroxybutyrate (0.02-0.27) mmol/L Ethyl Alcohol mg/dL Independent Interpretation I performed an independent interpretation of an: EKG (Sinus rhythm normal intervals no acute ischemic changes) Chronic Conditions Patient?s care impacted by: Diabetes Medications Administered Generic Name Dose Route Start Last Admin Trade Name Freq PRN Reason Stop Dose Admin Doxazosin Mesylate 4 mg 08/31/24 22:45 09/01/24 00:06 Doxazosin Mesylate 2 Mg Tablet PO 4 mg BEDTIME DIPAK Administration Protocol Potassium Phosphate 15 mmol in 250 mls @ 62.5 mls/hr 08/31/24 17:15 08/31/24 22:00 Kphos IV 09/01/24 01:14 62.5 mls/hr Q4H DIPAK Administration Insulin Glargine 18 unit 08/31/24 22:45 09/01/24 00:20 Insulin Glargine,Hum.Rec.Anlog 100 Unit/Ml 10 Ml Vial SUBCUT Not Given BEDTIME DIPAK Oxcarbazepine 600 mg 08/31/24 22:45 09/01/24 00:07 Oxcarbazepine 300 Mg Tablet PO 600 mg BID DIPAK Administration Trazodone HCl 200 mg 08/31/24 22:45 09/01/24 00:07 Trazodone Hcl 100 Mg Tablet PO 200 mg BEDTIME DIPAK Administration Discontinued Medications Generic Name Dose Route Start Last Admin Trade Name Freq PRN Reason Stop Dose Admin Diazepam 5 mg 08/31/24 16:16 08/31/24 16:33 Diazepam 10 Mg/2 Ml Cartridge IVPUSH 08/31/24 16:17 5 mg STAT STA Administration Diazepam 5 mg 08/31/24 17:01 08/31/24 17:25 Diazepam 10 Mg/2 Ml Cartridge IVPUSH 08/31/24 17:02 5 mg STAT STA Administration Diazepam 5 mg 08/31/24 18:39 08/31/24 19:03 Diazepam 10 Mg/2 Ml Cartridge IVPUSH 08/31/24 18:40 5 mg STAT STA Administration Droperidol 1.25 mg 08/31/24 18:39 08/31/24 19:02 Droperidol 5 Mg/2 Ml Vial IVPUSH 08/31/24 18:40 1.25 mg ONCE ONE Administration Hydromorphone HCl 1 mg 08/31/24 19:48 08/31/24 19:55 Hydromorphone Hcl 1 Mg/Ml Syringe IVPUSH 08/31/24 19:49 1 mg ONCE ONE Administration Protocol Lactated Ringer's 1,000 mls @ 999 mls/hr 08/31/24 16:15 08/31/24 17:42 Lr IV 08/31/24 17:15 Infused .Q1H1M DIPAK Infusion Lactated Ringer's 1,000 mls @ 999 mls/hr 08/31/24 17:15 08/31/24 19:14 Lr IV 08/31/24 18:15 Infused .Q1H1M DIPAK Infusion Insulin Human Regular 8 unit 08/31/24 17:05 08/31/24 17:42 Insulin Regular, Human 100 Unit/Ml 10 Ml Vial IVPUSH 08/31/24 17:06 8 unit ONCE ONE Administration Metoclopramide HCl 10 mg 08/31/24 16:16 08/31/24 16:33 Metoclopramide Hcl 10 Mg/2 Ml Vial IVPUSH 08/31/24 16:17 10 mg ONCE ONE Administration Ondansetron HCl 4 mg 08/31/24 17:01 08/31/24 17:24 Ondansetron Hcl 4 Mg/2 Ml Vial IVPUSH 08/31/24 17:02 4 mg ONCE ONE Administration Pantoprazole Sodium 80 mg 08/31/24 18:11 08/31/24 18:31 Pantoprazole Sodium 40 Mg/10 Ml Vial IVPUSH 08/31/24 18:12 80 mg ONCE ONE Administration Potassium Phos/Sodium Phos 2 packet 08/31/24 23:33 09/01/24 00:08 Sodium,Potassium Phosphates Powd.Pack PO 08/31/24 23:34 2 packet ONCE ONE Administration Prochlorperazine Edisylate 5 mg 08/31/24 23:34 09/01/24 00:07 Prochlorperazine Edisylate 10 Mg/2 Ml Vial IVPUSH 08/31/24 23:35 5 mg ONCE ONE Administration Discharge Plan Discharge Clinical Impression: Alcohol use disorder, Intractable abdominal pain Patient Disposition: Admitted As Inpatient
[2024-08-31 16:19] LABS: MANUAL DIFF FLAG NO
[2024-08-31 16:21] LABS: Basophils Percent Auto 0.2 % (0-2); Hematocrit 42.2 % (42.0-52.0); Hemoglobin 15.8 g/dl (14.0-18.0); Imm Gran Abs Auto 0.03 X10*3/uL (0.00-0.03); Imm Gran Pct Auto 0.3 % (0.0-0.4); Lymphocytes Absolute Auto 1.4 X10*3/uL (1.2-4.9); Lymphocytes Percent Auto 15.9 % (20-40); Mean Corpuscular HGB Conc 37.4 g/dl (31.0-36.0); Mean Corpuscular Hemoglobin 30.4 pg (27.0-33.0); Mean Corpuscular Volume 81.2 fL (80.0-98.0); Monocytes Absolute Auto 0.4 X10*3/uL (0.1-1.2); Monocytes Percent Auto 4.2 % (2-11); Neutrophils Absolute Auto 6.9 x10*3/uL (2.0-8.3); Neutrophils Percent Auto 79.4 % (45-73); Platelet Count 156 X10*3/uL (160-400); Red Cell Distribution Width 12.1 % (11.0-16.0); White Blood Count 8.8 X10*3/uL (4.8-10.8)
[2024-08-31 16:26] LABS: Venous Blood Gas Refer to POC result
[2024-08-31 16:27] LABS: VBG Base Excess 1.1 mmol/L; VBG HCO3 19 mmol/L (22-26); VBG pCO2 19 mmHg; VBG pO2 47 mmHg
[2024-08-31] MEDS: diazePAM 10 MG/2 ML CARTRIDGE 5 MG IVPUSH ×3 (16:33→19:03)
[2024-08-31] MEDS: Metoclopramide HCl 10 MG/2 ML VIAL IVPUSH (16:33)
[2024-08-31 16:39] LABS: Alanine Aminotransferase 41 U/L (0-40); Albumin Level 4.7 g/dL (3.5-5.0); Anion Gap 20 (12-20); Aspartate Amino Transferase 43 U/L (5-37); Beta-Hydroxybutyrate 1.73 mmol/L (0.02-0.27); Blood Urea Nitrogen 15 mg/dL (9-16); Calcium 9.6 mg/dL (8.4-10.2); Carbon Dioxide 19 mmol/L (22-29); Chloride 104 mmol/L (96-108); Creatinine Clr Calc Pharmacy 97.6; Estimated Glomerular Filt Rate > 60; Ethanol < 10 mg/dL; Glucose Random 287 mg/dL (60-115); Magnesium 1.9 mg/dL (1.6-2.6); Phosphorus 0.5 mg/dL (2.7-4.5); Sodium 139 mmol/L (135-145); Total Protein 7.6 g/dL (6.5-8.0)
--- OUTSIDE RECORDS SUMMARY | 2024-08-31 17:14 | XMS_ITS | Clinical Summary ---
Author Organization [facility] Address [address] [place] [address] Care Team Providers Care Hand Etcher Helper Name Role Phone Truman Brock MD Primary Care Provider [phone] Surgical History Surgery Date Site/Laterality Comments ESOPHAGOGASTRODUODENOSCOPY 12/30/06 PROCEDURE: OR EGD TRANSORAL BIOPSY SINGLE/MULTIPLE; COMMENT: r/o BE-bx:reflux esophagitis, gastritis-bx:mild chronic inflammation H. pylori negative. APPENDECTOMY 08/08 PROCEDURE: OR APPENDECTOMY VASECTOMY PROCEDURE: OR VASECTOMY UNI/BI SPX W/POSTOP SEMEN EXAMS HERNIA REPAIR PROCEDURE: HISTORICAL HERNIA REPAIR/ING; COMMENT: left, SHOULDER SURGERY PROCEDURE: HISTORICAL SHOULDER SURGERY; COMMENT: 2012 - left rot cuff and labrum OTHER SURGICAL HISTORY 06/15/2015 Right PROCEDURE: OR UNLISTED PROCEDURE ORBIT; COMMENT: Alloplastic implant for right orbital floor fracture. [facility] Dr. Santoyo MOLE REMOVAL 04/22/2018 PROCEDURE: HISTORICAL MOLE (REMOVAL OF); COMMENT: atypical mole, glabella OTHER SURGICAL HISTORY 06/05/2018 PROCEDURE: OR EXCISION PILONIDAL CYST/SINUS COMPLICATED; COMMENT: Dr Mccormick, [facility] KNEE ARTHROSCOPY W/ MENISCAL REPAIR Left PROCEDURE: OR ARTHROSCOPY KNEE W/MENISCUS RPR MEDIAL/LATERAL; COMMENT: [facility] TONSILLECTOMY PROCEDURE: HISTORICAL TONSILLECTOMY HAND SURGERY PROCEDURE: HISTORICAL HAND SURGERY; COMMENT: left trigger thumb [facility] Medical History Medical History Date Comments Heartburn 11/21/2005 DX:Heartburn Depressive disorder, not els ewhere classified 11/21/2005 DX:Depressive disorder, not elsewhere classified Temporomandibular joint diso rders, unspecified 11/21/2005 DX:Temporomandibular joint disorders, unspecified Alcohol abuse 05/23/2010 DX:Alcohol abuse Cocaine abuse ([facility] V24, [facility] V28) 05/23/2010 DX:Cocaine abuse ([facility]) Difficulty concentrating 10/14/2014 DX:Diff iculty concentrating Numbness of finger 10/14/2014 DX:Numbness o f finger Atypical chest pain 10/14/2014 DX:Atypical chest pain Hyperglycemia 03/31/2015 DX:Hyperglycemia DM (diabetes mellitus), type 2 with renal complications ([facility] V24, [facility] V28) 04/17/2016 DX:DM (diabetes mellitus), t ype 2 with renal complications ([facility]) Microalbuminuria 10/05/2020 DX:Microalbumin uria Alcohol use disorder, modera te, in sustained remission ([facility] V24, [facility] V28) 05/23/2010 DX:Alcohol use disorder, mod erate, in sustained remission ([facility]) Hypertension 08/21/2017 DX:Hypertension Severe obesity with body mas s index (BMI) of 35.0 to 39.9 with comorbidity ([facility] V24, [facility] V28) 08/21/2017 DX:Severe obesity with body mass index (BMI) of 35.0 to 39.9 with comorbidity ([facility]) Family History Medical History Relation Name Comments Diabetes Father Lymphoma Maternal Grandfather Lung cancer Mother smoker, mets Other: healthy Sister Other: some kind of cancer Uncle Colon cancer Neg Hx Heart attack Neg Hx Prostate cancer Neg Hx Relation Name Status Comments Father Alive healthy Maternal Grandfather lymphom a Mother lung cancer Sister Alive healthy Uncle Social History Tobacco Use Types Packs/Day Years Used Date Smoking Tobacco: Never Smokeless Tobacco: Never Alcohol Use Standard Drinks/Week Comments Yes 0 (1 standard drink = 0.6 oz pur e alcohol) Sex and Gender Information Value Date Recorded Sex Assigned at Not on file Legal Sex Male 8:38 PM EST Gender Identity Not on file Sexual Orientation Not on file Obstetrics History Plan of Treatment Health Maintenance Due Date Last Done Comments Hepatitis B Vaccines (1 of 3 - 19+ 3-dose series) 07/26/1990 Pneumococcal Vaccine: 50+ Years (1 of 1 - PCV) 07/26/2021 Zoster Vaccines (1 of 2) 07/26/2021 DTaP,Tdap,and Td Vaccines (3 - Td or Tdap) 04/28/2022 04/28/2012, 05/02/2005 COVID-19 Vaccine ( season) 2023 Influenza Vaccine (Season Ended) 2024 02/22/2020, 02/18/2018, 12/24/2016, Additional history exists HIB Vaccines Aged Out No longer eligi ble based on patient's age to complete this topic HPV Vaccines Aged Out No longer eligi ble based on patient's age to complete this topic Hepatitis A Vaccines Aged Out No long er eligible based on patient's age to complete this topic IPV Vaccines Aged Out No longer eligi ble based on patient's age to complete this topic MMR Vaccines Aged Out No longer eligi ble based on patient's age to complete this topic Meningococcal ACWY Vaccine Aged Out N o longer eligible based on patient's age to complete this topic Meningococcal B Vaccine Aged Out No l onger eligible based on patient's age to complete this topic Pneumococcal Vaccine: Pediatrics (0 to 5 Years) and At-Risk Patients (6 to 64 Years) Aged Out No longer eligible based on patient's age to complete this topic RSV Immunization Patients Under 20 months Aged Out No longer eligible based on patient's age to complete this topic Varicella Vaccines Aged Out No longer eligible based on patient's age to complete this topic Care Teams Hand Etcher Helper Relationship Specialty Start Date End Date Truman Brock MD [address] [facility] [address] PCP - General Internal Medicine 11/02/20
[2024-08-31] MEDS: ondansetron HCL 4 MG/2 ML VIAL IVPUSH (17:24)
[2024-08-31] MEDS: Insulin Regular, Human 100 UNIT/ML 10 ML VIAL 8 UNIT IVPUSH (17:42)
[2024-08-31 17:43] LABS: Glucose, Whole Blood 245 mg/dL (60-115)
[2024-08-31 17:45] LABS: Alkaline Phosphatase 82 U/L (39-117)
[2024-08-31] MEDS: Potassium Phosphate/NS 15 MMOL/250 ML PLAST..BAG 62.5 MMOL IV ×2 (18:06→22:00)
--- NOTE | 2024-08-31 18:10 | PC.NURSE ---
Patient c/o nausea and pain, patient dry heaving with some spit up. Medicated patient per provider, medication effective. IV 20G to right hand running LR 1L, Potassium phosphates currently running in 18G in RAC.
[2024-08-31] MEDS: Pantoprazole Sodium 40 MG/10 ML VIAL 80 MG IVPUSH (18:31)
[2024-08-31 18:57] VITALS: BP 188/95; PULSE 71; RESP 22; O2SAT 97
[2024-08-31] MEDS: droPERidol 5 MG/2 ML VIAL 1.25 MG IVPUSH (19:02)
--- NOTE | 2024-08-31 19:10 | PC.NURSE ---
Patient medicated per MAR, currently resting on the stretcher bed, call krueger in reach, patient's spouse at bedside.
[2024-08-31 19:26] LABS: Glucose, Whole Blood 179 mg/dL (60-115)
[2024-08-31 19:55] VITALS: RESP 16
[2024-08-31] MEDS: HYDROmorphone HCl 1 MG/ML SYRINGE IVPUSH (19:55)
--- NOTE | 2024-08-31 20:43 | MHC.EDTECH ---
Nurse aware of not doing patients 8pm vitals due to finally going to sleep
--- NOTE | 2024-08-31 21:41 | PHA.MEDREC ---
Addendum entered by Anna Bhakta [facility] 08/31/24 22:07: [facility] reviewed Original Note: Pharmacy Consult ? Medication Reconciliation Pharmacy has completed the medication reconciliation. Spoke with pt and at bedside who were able to confirm pts medications. Pt confirmed he is still taking Lantus Solostar and confirmed he injects 24 units at bedtime, despite it not being filled since 01/2024. Pt also confirmed he was taking Trulicity but stopped it himself a few months ago, but is going to be starting back again after this discharge , he stated. The pt confirmed he still has Lisdexamfetamine 30mg tabs at home as needed for focus/ADHD. Pt and pt stated the pt had not started the Metformin 500mg tabs but has them at home.
[2024-08-31 22:11] VITALS: BP 134/89; PULSE 80; RESP 18; O2SAT 96
--- NOTE | 2024-08-31 22:41 | P.HPHOSP_ITS ---
History of Present Illness Date of Service: 08/31/24 Attending physician on admission: David Mon Chief Complaint: upper abd pain Patient is a 54-year-old male with a past medical history significant for type 2 diabetes on insulin, GERD, alcohol use disorder, history of substance use disorder, PTSD and MDD, who presented to the ED again (was here yesterday) for severe upper abdominal pain with nausea and vomiting. He also reports some constipation reports that he has been having a hard time passing gas and has been belching frequently but has had multiple bowel movements over the last 2 days. He rates his pain a 10/10 but is currently had some improvement with IV pain management. He does reports multiple episodes of recurrent recent alcohol which may be contributing to his symptoms. He is also on Trulicity but reports he has not been taking this. He has also not been compliant with his insulin at home. He reports consuming about 4 beers per week, however does not line up with his history which sounded much more significant. His episodes of his upper abdominal pain have been triggered by alcohol use. He denies any fever, chills, diarrhea, chest pain, or shortness of breath. Review of Systems 2 Constitutional: Constitutional: Denies body ache(s), Denies chills, Denies fatigue, Denies fever(s) and Denies headache(s) Eyes: Eyes: Denies change in vision and Denies photophobia ENT: Denies headache(s), Denies nasal congestion, Denies nasal discharge and Denies sore throat Cardiovascular: Cardiovascular: Denies chest pain, Denies rapid heart rate, Denies leg edema, Denies lightheadedness and Denies dyspnea Respiratory: Respiratory: Denies chest congestion, Denies cough, Denies dyspnea and Denies wheezing Gastrointestinal: Gastrointestinal: Reports as per HPI Genitourinary: Genitourinary: Denies dysuria, Denies urinary frequency and Denies urinary urgency Musculoskeletal: Musculoskeletal: Denies myalgias Integumentary/Breasts: Skin/Breast: Denies rash Neurologic: Denies confusion and Denies headache(s) Psychiatric: Psychiatric: Denies confusion Endocrine: Endocrine: Denies fatigue Hematologic/Lymphatic: Hematologic/Lymphatic: Denies easy bleeding and Denies easy bruising Allergic/Immunologic: Allergic/Immunologic: Denies wheezing [facility] Medical History Major depressive disorder Cocaine use disorder Alcohol use disorder Diabetes mellitus, type II, insulin dependent Hypertension GERD (gastroesophageal reflux disease) Opioid use disorder, moderate, in sustained remission Functional capacity: independent ambulation Surgical History S/P appendectomy Hx of hernia repair S/P tonsillectomy S/P rotator cuff repair Hx of hand surgery Social History Household Members: Family Housing: House Do you presently have visiting nurse or other home services: No Alcohol intake: current Alcohol type: beer, wine and hard liquor Patient Tobacco Use Status: Never used Tobacco Smoked in Last 30 Days: No Use of substances other than those prescribed or required for medical reasons: Yes Substance Use Type: Marijuana Substance Use Frequency: Monthly Last Used Substance: Days (ago) Advance Directives: No Advance Directives Information Provided: No Do you have a plan to hurt others: No Plan Sexual orientation: Straight/Heterosexual Meds Allergies Allergy/AdvReac Type Severity Reaction Status Date / Time No Known Allergies Allergy Verified 08/31/24 15:56 [No Known Allergies*] Active Medications: Current Medications Acetaminophen (Acetaminophen 325 Mg Tablet) 975 mg PO Q6H PRN PRN Reason: Pain, Mild 1-3,fever,headache Calcium Carbonate (Calcium Carbonate 750 Mg Tab.Chew) 750 mg PO Q4H PRN PRN Reason: Heartburn Dextrose (Dextrose 50 % 25 Gm/50 Ml Syringe) 25 gm IVPUSH Q15M PRN; Protocol PRN Reason: per Hypoglycemia Standing Ord. Glucose (Glucose Gel 15 Gm Gel..Gram.) 15 gm PO Q15M PRN; Protocol PRN Reason: per Hypoglycemia Standing Ord. Hydromorphone HCl (Hydromorphone Hcl 1 Mg/Ml Syringe) 0.5 mg IVPUSH Q4H PRN; Protocol PRN Reason: Pain, Severe (Pain Scale 7-10) Potassium Phosphate (Kphos) 15 mmol in 250 mls @ 62.5 mls/hr IV Q4H DIPAK Stop: 09/01/24 01:14 Last Admin: 08/31/24 22:00 Dose: 62.5 mls/hr Insulin Glargine (Insulin Glargine,Hum.Rec.Anlog 100 Unit/Ml 10 Ml Vial) 18 unit SUBCUT BEDTIME [facility] Insulin Human Lispro (Insulin Lispro 100 Unit/Ml 3 Ml Vial) 0 unit SUBCUT QIDACHS [facility]; Protocol Magnesium Hydroxide (Milk Of Magnesia 30 Ml Oral.Susp) 30 ml PO DAILY PRN PRN Reason: Constipation Melatonin (Melatonin 3 Mg Tablet) 6 mg PO BEDTIME PRN PRN Reason: Insomnia Ondansetron HCl (Ondansetron Hcl 4 Mg/2 Ml Vial) 4 mg IVPUSH Q8H PRN PRN Reason: Nausea and Vomiting Oxycodone HCl (Oxycodone Hcl Immed Release 5 Mg Tablet) 5 mg PO Q6H PRN PRN Reason: Pain, Moderate(Pain Scale 4-6) Sodium Chloride (0.9 % Sodium Chloride Flush 3 Ml Syringe) [address] [facility] Medications ?Medication ?Instructions ?Recorded ?Confirmed ?Last Taken ?Type labetalol 200 mg tablet 200 mg PO BID 08/19/20 08/31/24 08/31/24 History pantoprazole 40 mg tablet,delayed 40 mg PO BID@0630,1630 01/06/24 08/31/24 08/31/24 History release trazodone 100 mg tablet 200 mg PO BEDTIME 01/06/24 08/31/24 08/30/24 History acetaminophen 500 mg tablet 1,000 mg PO Q6H PRN Pain 08/31/24 08/31/24 Unknown History doxazosin 4 mg tablet 4 mg PO BEDTIME 08/31/24 08/31/24 08/30/24 History dulaglutide 1.5 mg/0.5 mL 1.5 mg subcut QWEEK 08/31/24 08/31/24 Unknown History subcutaneous pen injector (Trulicity) insulin glargine-yfgn 100 unit/mL 24 unit subcut BEDTIME 08/31/24 08/31/24 Unknown History (3 mL) subcutaneous pen lisdexamfetamine 50 mg capsule 50 mg PO DAILY PRN focus/adhd 08/31/24 08/31/24 Unknown History metformin 500 mg tablet 1,000 mg PO BIDWM 08/31/24 08/31/24 Unknown History oxcarbazepine 600 mg tablet 600 mg PO BID 08/31/24 08/31/24 08/31/24 History Physical Exam 2 Vital Signs and Narrative: Vital Signs: Last Vital Signs Temp 97.7 F 08/31/24 15:57 Pulse 80 08/31/24 22:11 Resp 18 08/31/24 22:11 BP 134/89 08/31/24 22:11 Pulse Ox 96 08/31/24 22:11 O2 Del Method Room Air 08/31/24 22:11 BMI result Body Mass Index 34.1 General: AOx3, no acute distress Resp: CTA bilaterally CVS: S1, S2, RRR GI: +BS, mild tenderness epigastric region. negative meredith's sign, no pain with deep palpation RUQ or LUQ, no distention Skin: Warm, dry Neuro: Cranial nerves II-XII grossly intact bilaterally. Motor grossly intact bilaterally Extremities: No LE edema Psych: Appropriate affect Const: General: No confusion Orientation/consciousness: No confusion Eyes: Direct Ophthalmoscopy: No photophobia Neuro: General: No confusion Results Labs 08/31/24 16:13 08/31/24 16:13 Labs: Laboratory Results - last 24 hr 08/31/24 08/31/24 08/31/24 16:13 16:20 17:38 MCV 81.2 MCH 30.4 MCHC 37.4 H RDW 12.1 Plt Count 156 L MPV 10.0 Immature Gran % (Auto) 0.3 Neut % (Auto) 79.4 H Lymph % (Auto) 15.9 L [place] % (Auto) 4.2 Eos % (Auto) 0.0 Baso % (Auto) 0.2 Lymph # (Auto) 1.4 [place] # (Auto) 0.4 Eos # (Auto) 0.0 Baso # (Auto) 0.0 Abs Immat Gran (auto) 0.03 Absolute Neuts (auto) 6.9 Absolute Nucleated RBC 0.000 Nucleated RBC % (auto) 0.0 VBG pH 7.60 H* VBG pCO2 19 VBG pO2 47 VBG HCO3 19 L VBG O2 Saturation 81.0 VBG Base Excess 1.1 Anion Gap 20 Estim Creat Clear Calc 97.6 Estimated GFR > 60 POC Glucose 245 H Random Glucose 287 H Calcium 9.6 Phosphorus 0.5 L* Magnesium 1.9 Total Bilirubin 1.0 AST 43 H ALT 41 H Alkaline Phosphatase 82 Total Protein 7.6 Albumin 4.7 Beta-Hydroxybutyrate 1.73 H Ethyl Alcohol < 10 08/31/24 19:21 MCV MCH MCHC RDW Plt Count MPV Immature Gran % (Auto) Neut % (Auto) Lymph % (Auto) [place] % (Auto) Eos % (Auto) Baso % (Auto) Lymph # (Auto) [place] # (Auto) Eos # (Auto) Baso # (Auto) Abs Immat Gran (auto) Absolute Neuts (auto) Absolute Nucleated RBC Nucleated RBC % (auto) VBG pH VBG pCO2 VBG pO2 VBG HCO3 VBG O2 Saturation VBG Base Excess Anion Gap Estim Creat Clear Calc Estimated GFR POC Glucose 179 H Random Glucose Calcium Phosphorus Magnesium Total Bilirubin AST ALT Alkaline Phosphatase Total Protein Albumin Beta-Hydroxybutyrate Ethyl Alcohol Assessment and Plan (1) Intractable abdominal pain: Status: Acute (2) Gastritis: Status: Acute (3) Metabolic acidosis: Status: Acute (4) Hyperglycemia: Status: Acute (5) Hypophosphatemia: Status: Acute (6) Alcohol use disorder: Status: Acute Plan Patient is a 54-year-old male with a past medical history significant for type 2 diabetes on insulin, GERD, alcohol use disorder, history of substance use disorder, PTSD and MDD, who presented to the ED again (was here yesterday) for severe upper abdominal pain with nausea and vomiting. Intractable abdominal pain likely secondary to gastritis - WBC 8.8, vitals stable, no sepsis - abdominopelvic CT yesterday negative for acute findings, suggestive of fatty liver - BMP with metabolic acidosis secondary to vomiting - EKG with NSR - Zofran as needed for nausea - given pantoprazole 80 mg in ED, continue 40 mg b.i.d. - GI consult - NPO - monitor CBC and BMP Hyperglycemia, noncompliant with insulin - blood glucose 287, patient noncompliant with insulin - no anion gap - beta hydroxybutyrate 1.73 - given 2 L IV fluids and 8 units insulin in ED - recheck blood sugar now - sliding scale insulin - POC q.6h - currently NPO Hypophosphatemia - phosphorus 0.5, given 2 bags IV potassium phosphate in ED - give additional nurtaphos 2 packets and recheck in 2 hours - monitor BMP HTN - continue labetalol GERD - pantoprazole as above Alcohol use disorder - patient denies daily use, no history of alcohol withdrawal - CIWA q.4h History substance use disorder, in remission Mood disorder - continue ox carbamazepine, trazodone Full code VTE prophylaxis: Pneumoboots pending GI consult Patient with persistent upper abdominal pain likely secondary to gastritis with vomiting, requiring admission for at least 2 midnight stay for antiemetics and GI consultation. Quality Stroke Does the patient have a stroke diagnosis?: No VTE Prior VTE?: No VTE Risk Level:: Medical - moderate - high VTE Device Contraindication: N/A - Device Ordered VTE Drug Contraindication: Treatment Not Indicated
[2024-08-31 22:47] LABS: Glucose, Whole Blood 161 mg/dL (60-115)
[2024-09-01 00:05] VITALS: BP 124/79; PULSE 75; RESP 18; O2SAT 97
[2024-09-01 00:06] VITALS: BP 124/79
[2024-09-01] MEDS: Doxazosin Mesylate 2 MG TABLET 4 MG PO (00:06)
[2024-09-01] MEDS: OXcarbazepine 300 MG TABLET 600 MG PO ×2 (00:07→09:01)
[2024-09-01] MEDS: Prochlorperazine Edisylate 10 MG/2 ML VIAL 5 MG IVPUSH (00:07)
[2024-09-01] MEDS: traZODone HCL 100 MG TABLET 200 MG PO (00:07)
[2024-09-01] MEDS: Sodium,Potassium Phosphates POWD.PACK 2 PACKET PO (00:08)
--- NOTE | 2024-09-01 00:20 | PC.NURSE ---
Messaged Patsy Knowles with patient's most recent POC and NPO status and per provider, hold current dose of lantus insulin. Spoke with patient and he is okay with holding the insulin. Patient ambulated to and from bathroom independently.
[2024-09-01 03:00] LABS: Anion Gap 15 (12-20); Blood Urea Nitrogen 13 mg/dL (9-16); Calcium 8.5 mg/dL (8.4-10.2); Carbon Dioxide 23 mmol/L (22-29); Chloride 106 mmol/L (96-108); Creatinine Clr Calc Pharmacy 118.4; Estimated Glomerular Filt Rate > 60; Glucose Random 167 mg/dL (60-115); Potassium 3.8 mmol/L (3.3-5.1); Sodium 140 mmol/L (135-145)
[2024-09-01 05:03] LABS: Hematocrit 37.3 % (42.0-52.0); Hemoglobin 13.6 g/dl (14.0-18.0); Mean Corpuscular HGB Conc 36.5 g/dl (31.0-36.0); Mean Corpuscular Hemoglobin 30.4 pg (27.0-33.0); Mean Corpuscular Volume 83.4 fL (80.0-98.0); Mean Platelet Volume 10.4 fL (9.4-12.4); Platelet Count 144 X10*3/uL (160-400); Red Blood Count 4.47 X10*6/uL (4.60-5.80); Red Cell Distribution Width 12.4 % (11.0-16.0); White Blood Count 9.5 X10*3/uL (4.8-10.8)
[2024-09-01 05:25] LABS: Alkaline Phosphatase 67 U/L (39-117); Anion Gap 13 (12-20); Aspartate Amino Transferase 29 U/L (5-37); Bilirubin Total 0.7 mg/dL (0.0-1.0); Blood Urea Nitrogen 14 mg/dL (9-16); Calcium 8.6 mg/dL (8.4-10.2); Carbon Dioxide 24 mmol/L (22-29); Chloride 107 mmol/L (96-108); Creatinine Clr Calc Pharmacy 111.3; Estimated Glomerular Filt Rate > 60; Glucose Random 156 mg/dL (60-115); Potassium 3.6 mmol/L (3.3-5.1); Sodium 140 mmol/L (135-145); Total Protein 6.6 g/dL (6.5-8.0)
[2024-09-01 05:48] LABS: Alanine Aminotransferase 32 U/L (0-40)
[2024-09-01 06:08] VITALS: BP 116/63; PULSE 75; RESP 16; TEMP 36.6; O2SAT 95
[2024-09-01 06:20] LABS: Phosphorus 4.9 mg/dL (2.7-4.5)
[2024-09-01] MEDS: Pantoprazole Sodium 40 MG/10 ML VIAL IVPUSH (06:32)
[2024-09-01 07:34] LABS: Glucose, Whole Blood 153 mg/dL (60-115)
[2024-09-01 07:55] VITALS: BMI 34.0
[2024-09-01 08:00] VITALS: BP 129/79; PULSE 75; RESP 16; TEMP 36.7; O2SAT 97
--- NOTE | 2024-09-01 08:53 | MHC.CM.PN ---
Addendum entered by Shira Headley 09/01/24 14:27: Patient is discharged to home self care. He has arranged for private transport home. Addendum entered by Shira Headley 09/01/24 08:56: PCP is Dr Sandip Estrada [facility] [place] medical practice. Original Note: Patient admitted with abdominal pain He lives with his . He is independent with all functional mobility. A copy of his HCP has been requested. DP Home self care. Pt will provide transportation home.
[2024-09-01] MEDS: buPROPion HCl XL 150 MG TAB.ER.24H PO (09:01)
[2024-09-01] MEDS: FLUoxetine HCl 20 MG CAPSULE 40 MG PO (09:01)
[2024-09-01] MEDS: Labetalol HCL 200 MG TABLET PO (09:02)
[2024-09-01 09:03] LABS: Glucose, Whole Blood 161 mg/dL (60-115)
[2024-09-01] MEDS: 0.9 % Sodium Chloride Flush 3 ML SYRINGE IVFLUSH (09:08)
[2024-09-01 09:35] LABS: Estimated Average Glucose 217 mg/dL; Hemoglobin A1C 269.5582 umol/L; Hemoglobin A1c % 9.2 % (<6.0); Total Hemoglobin (HGBA1C) 3512.0846 umol/L
--- NOTE | 2024-09-01 09:42 | HO.PM.IMPN ---
Subjective Subjective Date of Service: 09/01/24 Interval History: Seen and evaluated this morning feels little better to start diet Hb 9.2 no other events Review of Systems Review of Systems: Yes all other systems are reviewed and are negative Physical Exam Vital Signs: Vital Signs: Last Vital Signs Temp 98.1 F 09/01/24 08:00 Pulse 75 09/01/24 08:00 Resp 16 09/01/24 08:00 BP 129/79 09/01/24 08:00 Pulse Ox 97 09/01/24 08:00 O2 Del Method Room Air 09/01/24 08:00 BMI result Body Mass Index 34.0 Const: Other: Constitutional : interactive, not in distress Cardiovascular : no JVP, no lower extremity edema Respiratory : bilateral chest movement, not in resp distress Gastrointestinal: soft, lax, Non tender Skin : Warm, Dry Neurological : Alert & oriented , No focal deficit Objective Data Active Medications Acetaminophen (Acetaminophen 325 Mg Tablet) 975 mg PO Q6H PRN PRN Reason: Pain, Mild 1-3,fever,headache Bupropion HCl (Bupropion Hcl Xl 150 Mg Tab.Er.24h) 150 mg PO DAILY [facility] Last Admin: 09/01/24 09:01 Dose: 150 mg Documented By: CHANDNI Calcium Carbonate (Calcium Carbonate 750 Mg Tab.Chew) 750 mg PO Q4H PRN PRN Reason: Heartburn Dextrose (Dextrose 50 % 25 Gm/50 Ml Syringe) 25 gm IVPUSH Q15M PRN; Protocol PRN Reason: per Hypoglycemia Standing Ord. Doxazosin Mesylate (Doxazosin Mesylate 2 Mg Tablet) 4 mg PO BEDTIME [facility]; Protocol Last Admin: 09/01/24 00:06 Dose: 4 mg Documented By: ANAMARIA Fluoxetine HCl (Fluoxetine Hcl 20 Mg Capsule) 40 mg PO DAILY [facility] Last Admin: 09/01/24 09:01 Dose: 40 mg Documented By: CHANDNI Glucose (Glucose Gel 15 Gm Gel..Gram.) 15 gm PO Q15M PRN; Protocol PRN Reason: per Hypoglycemia Standing Ord. Hydromorphone HCl (Hydromorphone Hcl 1 Mg/Ml Syringe) 0.5 mg IVPUSH Q4H PRN; Protocol PRN Reason: Pain, Severe (Pain Scale 7-10) Insulin Glargine (Insulin Glargine,Hum.Rec.Anlog 100 Unit/Ml 10 Ml Vial) 18 unit SUBCUT BEDTIME [facility] Last Admin: 09/01/24 00:20 Dose: Not Given Documented By: ANAMARIA Non-Admin Reason: Physician Held Med Insulin Human Lispro (Insulin Lispro 100 Unit/Ml 3 Ml Vial) 0 unit SUBCUT QIDACHS [facility]; Protocol Last Admin: 09/01/24 07:42 Dose: Not Given Documented By: ANTOLIN Non-Admin Reason: NPO Labetalol HCl (Labetalol Hcl 200 Mg Tablet) 200 mg PO BID [facility]; Protocol Last Admin: 09/01/24 09:02 Dose: 200 mg Documented By: CHANDNI Magnesium Hydroxide (Milk Of Magnesia 30 Ml Oral.Susp) 30 ml PO DAILY PRN PRN Reason: Constipation Melatonin (Melatonin 3 Mg Tablet) 6 mg PO BEDTIME PRN PRN Reason: Insomnia Non-Formulary Medication (Lisdexamfetamine) 50 mg PO DAILY PRN PRN Reason: focus/adhd Ondansetron HCl (Ondansetron Hcl 4 Mg/2 Ml Vial) 4 mg IVPUSH Q8H PRN PRN Reason: Nausea and Vomiting Oxcarbazepine (Oxcarbazepine 300 Mg Tablet) 600 mg PO BID [facility] Last Admin: 09/01/24 09:01 Dose: 600 mg Documented By: CHANDNI Oxycodone HCl (Oxycodone Hcl Immed Release 5 Mg Tablet) 5 mg PO Q6H PRN PRN Reason: Pain, Moderate(Pain Scale 4-6) Pantoprazole Sodium (Pantoprazole Sodium 40 Mg/10 Ml Vial) 40 mg IVPUSH BID@0630,1630 [facility] Last Admin: 09/01/24 06:32 Dose: 40 mg Documented By: ANAMARIA Sodium Chloride (0.9 % Sodium Chloride Flush 3 Ml Syringe) 3 ml IVFLUSH QSHIFT [facility] Last Admin: 09/01/24 09:08 Dose: 3 ml Documented By: CHANDNI Trazodone HCl (Trazodone Hcl 100 Mg Tablet) 200 mg PO BEDTIME [facility] Last Admin: 09/01/24 00:07 Dose: 200 mg Documented By: ANAMARIA Labs 09/01/24 04:23 09/01/24 04:23 Labs: Laboratory Results - last 24 hr 0608/31/24 08/31/24 16:13 16:20 17:38 MCV 81.2 MCH 30.4 MCHC 37.4 H RDW 12.1 Plt Count 156 L MPV 10.0 Immature Gran % (Auto) 0.3 Neut % (Auto) 79.4 H Lymph % (Auto) 15.9 L [place] % (Auto) 4.2 Eos % (Auto) 0.0 Baso % (Auto) 0.2 Lymph # (Auto) 1.4 [place] # (Auto) 0.4 Eos # (Auto) 0.0 Baso # (Auto) 0.0 Abs Immat Gran (auto) 0.03 Absolute Neuts (auto) 6.9 Absolute Nucleated RBC 0.000 Nucleated RBC % (auto) 0.0 VBG pH 7.60 H* VBG pCO2 19 VBG pO2 47 VBG HCO3 19 L VBG O2 Saturation 81.0 VBG Base Excess 1.1 Anion Gap 20 Estim Creat Clear Calc 97.6 Estimated GFR > 60 POC Glucose 245 H Random Glucose 287 H Estimat Average Glucose Hemoglobin A1c % Calcium 9.6 Phosphorus 0.5 L* Magnesium 1.9 Total Bilirubin 1.0 AST 43 H ALT 41 H Alkaline Phosphatase 82 Total Protein 7.6 Albumin 4.7 Beta-Hydroxybutyrate 1.73 H Ethyl Alcohol < 10 08/31/24 08/31/24 09/01/24 19:21 22:41 02:17 MCV MCH MCHC RDW Plt Count MPV Immature Gran % (Auto) Neut % (Auto) Lymph % (Auto) [place] % (Auto) Eos % (Auto) Baso % (Auto) Lymph # (Auto) [place] # (Auto) Eos # (Auto) Baso # (Auto) Abs Immat Gran (auto) Absolute Neuts (auto) Absolute Nucleated RBC Nucleated RBC % (auto) VBG pH VBG pCO2 VBG pO2 VBG HCO3 VBG O2 Saturation VBG Base Excess Anion Gap 15 Estim Creat Clear Calc 118.4 Estimated GFR > 60 POC Glucose 179 H 161 H Random Glucose 167 H Estimat Average Glucose Hemoglobin A1c % Calcium 8.5 D Phosphorus Magnesium Total Bilirubin AST ALT Alkaline Phosphatase Total Protein Albumin Beta-Hydroxybutyrate Ethyl Alcohol 09/01/24 09/01/24 09/01/24 04:23 07:29 08:59 MCV 83.4 MCH 30.4 MCHC 36.5 H RDW 12.4 Plt Count 144 L MPV 10.4 Immature Gran % (Auto) Neut % (Auto) Lymph % (Auto) [place] % (Auto) Eos % (Auto) Baso % (Auto) Lymph # (Auto) [place] # (Auto) Eos # (Auto) Baso # (Auto) Abs Immat Gran (auto) Absolute Neuts (auto) Absolute Nucleated RBC 0.000 Nucleated RBC % (auto) 0.0 VBG pH VBG pCO2 VBG pO2 VBG HCO3 VBG O2 Saturation VBG Base Excess Anion Gap 13 Estim Creat Clear Calc 111.3 Estimated GFR > 60 POC Glucose 153 H 161 H Random Glucose 156 H Estimat Average Glucose 217 Hemoglobin A1c % 9.2 H Calcium 8.6 Phosphorus 4.9 H Magnesium Total Bilirubin 0.7 AST 29 ALT 32 Alkaline Phosphatase 67 Total Protein 6.6 Albumin 4.0 Beta-Hydroxybutyrate Ethyl Alcohol Assessment and Plan (1) Hypophosphatemia: Status: Acute (2) Metabolic acidosis: Status: Acute (3) Hyperglycemia: Status: Acute (4) Gastritis: Status: Acute (5) Intractable abdominal pain: Status: Acute Plan Patient is a 54-year-old male with a past medical history significant for type 2 diabetes on insulin, GERD, alcohol use disorder, history of substance use disorder, PTSD and MDD, who presented to the ED again (was here yesterday) for severe upper abdominal pain with nausea and vomiting. Intractable abdominal pain likely secondary to gastritis improving abdominopelvic CT negative for acute findings, suggestive of fatty liver Zofran as needed for nausea pantoprazole 40 mg b.i.d. GI consult start diabetic diet monitor CBC and BMP Hyperglycemia, noncompliant with insulin in Type 2 DM A1c 9.2 not adherent to his Lantus insulin sliding scale insulin diabetic diet acute Hypophosphatemia corrected with replacement monitor BMP HTN continue labetalol GERD pantoprazole as above Alcohol use disorder patient denies daily use, no history of alcohol withdrawal CIWA q.4h History substance use disorder, in remission Mood disorder continue ox carbamazepine, trazodone Full code VTE prophylaxis: Pneumoboots Patient with persistent upper abdominal pain likely secondary to gastritis with vomiting, requiring admission overnight for antiemetics and GI consultation. Quality Stroke Does the patient have a stroke diagnosis?: No VTE Prior VTE?: No VTE Risk Level:: Medical - moderate - high VTE Device Contraindication: N/A - Device Ordered VTE Drug Contraindication: Treatment Not Indicated
[2024-09-01 11:53] LABS: Glucose, Whole Blood 234 mg/dL (60-115)
[2024-09-01] MEDS: Insulin Lispro 100 UNIT/ML 3 ML VIAL SUBCUT (11:58)
--- NOTE | 2024-09-01 14:16 | PM.DS ---
DS: Providers Provider Date of Service: 09/01/24 Date of admission: 08/31/24 20:52 Date of discharge: 09/01/24 Primary care physician: Unknown Physician Consults: 08/31/24 22:32 Consult to Gastroenterology Routine Consulting Provider: Ceferino Gee Reason for consultation: ?gastritis, intractable upper abd pain Has provider been notified: No DS: Diagnosis Discharge Diagnosis (1) Hypophosphatemia: Status: Acute (2) Metabolic acidosis: Status: Acute (3) Hyperglycemia: Status: Acute (4) Gastritis: Status: Acute (5) Intractable abdominal pain: Status: Acute (6) Uncontrolled diabetes mellitus with hyperglycemia: Status: Acute DS: Summary Hospital Course Hospital Course: Admission note HPI Patient is a 54-year-old male with a past medical history significant for type 2 diabetes on insulin, GERD, alcohol use disorder, history of substance use disorder, PTSD and MDD, who presented to the ED again (was here yesterday) for severe upper abdominal pain with nausea and vomiting. He also reports some constipation reports that he has been having a hard time passing gas and has been belching frequently but has had multiple bowel movements over the last 2 days. He rates his pain a 10/10 but is currently had some improvement with IV pain management. He does reports multiple episodes of recurrent recent alcohol which may be contributing to his symptoms. He is also on Trulicity but reports he has not been taking this. He has also not been compliant with his insulin at home. He reports consuming about 4 beers per week, however does not line up with his history which sounded much more significant. His episodes of his upper abdominal pain have been triggered by alcohol use. He denies any fever, chills, diarrhea, chest pain, or shortness of breath. Hospital course The patient was admitted for Intractable abdominal pain likely secondary to gastritis vs gastroparesis or gallbladder disease as abdominopelvic CT negative for acute findings, suggestive of fatty liver likely related to alcohol abuse and uncontrolled diabetes. improved with pain medications and Zofran as needed for nausea with pantoprazole 40 mg b.i.d . GI consulted and recommended US abdomen and no need for inpatient EGD at this point. he was able to tolerate diet and asked to be discharged home. Will discharge on Pantoprazole and to check US Abdomen with advise to lose weight and avoid fatty food. For Hyperglycemia with hx of noncompliant with insulin in Type 2 DM. HbA1c 9.2. Advised to take his medications as prescribed and prescribed sliding scale insulin. For acute Hypophosphatemia corrected with replacement monitor BMP. For Alcohol use disorder, patient denies daily use, no history of alcohol withdrawal. CIWA q.4h scoring 0. advised to avoid alcohol abuse. Discharge plan Exercise and try to lose weight Avoid Alcohol and fatty food Start short acting insulin To do US Abdomen as outpatient Follow with PCP with 1 week readings of blood sugar for further adjustments of your medicaitons Follow with dr Gee from GI as outpatient as needed The patient made quicker than expected recovery and will not need 2 overnight hospital stay. Time Attestation Discharge Coordination Time (in mins): 32 Quality: Safe Use of Opioids Does Pt have an Active Cancer Diagnosis on the Problem List?: No Quality: Stroke Does the patient have a stroke diagnosis?: No Physical Exam Vital Signs: Vital Signs: Last Vital Signs Temp 98.1 F 09/01/24 08:00 Pulse 75 09/01/24 08:00 Resp 16 09/01/24 08:00 BP 129/79 09/01/24 08:00 Pulse Ox 97 09/01/24 08:00 O2 Del Method Room Air 09/01/24 08:00 BMI result Body Mass Index 34.0 Const: Other: Constitutional : interactive, not in distress Cardiovascular : no JVP, no lower extremity edema Respiratory : bilateral chest movement, not in resp distress Gastrointestinal: soft, lax, Non tender Skin : Warm, Dry Neurological : Alert & oriented , No focal deficit DS: Data Data Completed and Pending Labs on day of discharge: Laboratory Results - last 24 hr 08/31/24 08/31/24 08/31/24 16:13 16:20 17:38 WBC 8.8 RBC 5.20 Hgb 15.8 Hct 42.2 MCV 81.2 MCH 30.4 MCHC 37.4 H RDW 12.1 Plt Count 156 L MPV 10.0 Immature Gran % (Auto) 0.3 Neut % (Auto) 79.4 H Lymph % (Auto) 15.9 L Evangeline % (Auto) 4.2 Eos % (Auto) 0.0 Baso % (Auto) 0.2 Lymph # (Auto) 1.4 Evangeline # (Auto) 0.4 Eos # (Auto) 0.0 Baso # (Auto) 0.0 Abs Immat Gran (auto) 0.03 Absolute Neuts (auto) 6.9 Absolute Nucleated RBC 0.000 Nucleated RBC % (auto) 0.0 VBG pH 7.60 H* VBG pCO2 19 VBG pO2 47 VBG HCO3 19 L VBG O2 Saturation 81.0 VBG Base Excess 1.1 Sodium 139 Potassium 4.0 Chloride 104 Carbon Dioxide 19 L Anion Gap 20 BUN 15 Creatinine 1.14 Estim Creat Clear Calc 97.6 Estimated GFR > 60 POC Glucose 245 H Random Glucose 287 H Estimat Average Glucose Hemoglobin A1c % Calcium 9.6 Phosphorus 0.5 L* Magnesium 1.9 Total Bilirubin 1.0 AST 43 H ALT 41 H Alkaline Phosphatase 82 Total Protein 7.6 Albumin 4.7 Beta-Hydroxybutyrate 1.73 H Ethyl Alcohol < 10 08/31/24 08/31/24 09/01/24 19:21 22:41 02:17 WBC RBC Hgb Hct MCV MCH MCHC RDW Plt Count MPV Immature Gran % (Auto) Neut % (Auto) Lymph % (Auto) Evangeline % (Auto) Eos % (Auto) Baso % (Auto) Lymph # (Auto) Evangeline # (Auto) Eos # (Auto) Baso # (Auto) Abs Immat Gran (auto) Absolute Neuts (auto) Absolute Nucleated RBC Nucleated RBC % (auto) VBG pH VBG pCO2 VBG pO2 VBG HCO3 VBG O2 Saturation VBG Base Excess Sodium 140 Potassium 3.8 Chloride 106 Carbon Dioxide 23 Anion Gap 15 BUN 13 Creatinine 0.94 Estim Creat Clear Calc 118.4 Estimated GFR > 60 POC Glucose 179 H 161 H Random Glucose 167 H Estimat Average Glucose Hemoglobin A1c % Calcium 8.5 D Phosphorus Magnesium Total Bilirubin AST ALT Alkaline Phosphatase Total Protein Albumin Beta-Hydroxybutyrate Ethyl Alcohol 09/01/24 09/01/24 09/01/24 04:23 07:29 08:59 WBC 9.5 RBC 4.47 L Hgb 13.6 L Hct 37.3 L MCV 83.4 MCH 30.4 MCHC 36.5 H RDW 12.4 Plt Count 144 L MPV 10.4 Immature Gran % (Auto) Neut % (Auto) Lymph % (Auto) Evangeline % (Auto) Eos % (Auto) Baso % (Auto) Lymph # (Auto) Evangeline # (Auto) Eos # (Auto) Baso # (Auto) Abs Immat Gran (auto) Absolute Neuts (auto) Absolute Nucleated RBC 0.000 Nucleated RBC % (auto) 0.0 VBG pH VBG pCO2 VBG pO2 VBG HCO3 VBG O2 Saturation VBG Base Excess Sodium 140 Potassium 3.6 Chloride 107 Carbon Dioxide 24 Anion Gap 13 BUN 14 Creatinine 1.00 Estim Creat Clear Calc 111.3 Estimated GFR > 60 POC Glucose 153 H 161 H Random Glucose 156 H Estimat Average Glucose 217 Hemoglobin A1c % 9.2 H Calcium 8.6 Phosphorus 4.9 H Magnesium Total Bilirubin 0.7 AST 29 ALT 32 Alkaline Phosphatase 67 Total Protein 6.6 Albumin 4.0 Beta-Hydroxybutyrate Ethyl Alcohol 09/01/24 11:49 WBC RBC Hgb Hct MCV MCH MCHC RDW Plt Count MPV Immature Gran % (Auto) Neut % (Auto) Lymph % (Auto) Evangeline % (Auto) Eos % (Auto) Baso % (Auto) Lymph # (Auto) Evangeline # (Auto) Eos # (Auto) Baso # (Auto) Abs Immat Gran (auto) Absolute Neuts (auto) Absolute Nucleated RBC Nucleated RBC % (auto) VBG pH VBG pCO2 VBG pO2 VBG HCO3 VBG O2 Saturation VBG Base Excess Sodium Potassium Chloride Carbon Dioxide Anion Gap BUN Creatinine Estim Creat Clear Calc Estimated GFR POC Glucose 234 H Random Glucose Estimat Average Glucose Hemoglobin A1c % Calcium Phosphorus Magnesium Total Bilirubin AST ALT Alkaline Phosphatase Total Protein Albumin Beta-Hydroxybutyrate Ethyl Alcohol Imaging CT scan - abdomen: Radiologist's impression: IMPRESSION: No acute findings. Discharge Plan Discharge Anticipated Discharge Date/Time: 09/01/24 14:06 Patient Disposition: Home, Self-Care Discharge Diagnosis: Elevated blood sugar Gastritis Electrolytes imbalance Referrals: Sandip Estrada [Other] - 1 Week Discharge Medications: New insulin lispro [Humalog KwikPen Insulin] 100 unit/mL insulin pen See Protocol subcut USEASDIRECTD Qty: 15 0RF Protocol: Insulin Correction Scale Less than or equal to 110 ---- Give (units): 0 111 to 150 Give (units): 0 151 to 200 Give (units): 2 201 to 250 Give (units): 4 251 to 300 Give (units): 6 301 to 350 Give (units): 8 Greater than 350 Give (units): 10 Call MD if Blood Glucose > : 350 Rx Instructions: glucose <100 mg/dL: No insulin 100 to 150 mg/dL: 2 units 151 to 200 mg/dL: 4 units 201 to 250 mg/dL: 6 units 251 to 300 mg/dL: 8 units 300 to 350 mg/dL: 10 units >350 take 12 units, contact provider (DME) pen needle, diabetic [Pen Needle] 31 gauge x 5/16 needle See Rx Instructions .ROUTE .MEDSUPPLY Qty: 1200 0RF Rx Instructions: QIDACH Continued trazodone 100 mg tablet 200 mg PO BEDTIME pantoprazole 40 mg tablet,delayed release (DR/EC) 40 mg PO BID@0630,1630 fluoxetine 20 mg Capsule 40 mg PO DAILY 30 Days Qty: 60 1RF bupropion HCl 150 mg Tablet Extended Release 24 Hr 150 mg PO DAILY 30 Days Qty: 30 1RF doxazosin 4 mg tablet 4 mg PO BEDTIME oxcarbazepine 600 mg tablet 600 mg PO BID acetaminophen 500 mg Tablet 1,000 mg PO Q6H PRN (Reason: Pain) metformin 500 mg tablet 1,000 mg PO BIDWM Rx Instructions: has not started, first fill at pharmacy 08/30/24 lisdexamfetamine 50 mg capsule 50 mg PO DAILY PRN (Reason: focus/adhd) Trulicity 1.5 mg/0.5 mL pen injector 1.5 mg subcut QWEEK insulin glargine-yfgn 100 unit/mL (3 mL) insulin pen 24 unit SUBCUT BEDTIME labetalol 200 mg tablet 200 mg PO BID Discharge Orders: Discharge Order (Routine); Ordered 09/01/24 Ordered By: Manoj Rivera Diet: Diabetic diet Activity on Discharge: As tolerated Stand Alone Forms: Patient Portal Discharge page Print Language: Burundian Other Ambulatory Orders: US abdomen complete (Routine) Timeframe: 1 Week Facility: [facility] - Location: Ultrasound Ordered By: Manoj Rivera Care Plan Goals: Exercise and try to lose weight Avoid Alcohol and fatty food Start short acting insulin To do US Abdomen as outpatient Follow with PCP with 1 week readings of blood sugar for further adjustments of your medicaitons Follow with dr Gee from GI as outpatient as needed Health Concerns: Uncontrolled diabetes Abdominal pain Plan of Treatment: US Abdomen Pantoprazole Short acting insulin Assessment: as above
--- NOTE | 2024-09-01 17:26 | P.CDIM_ITS ---
PROVIDER RESPONSE TEXT: To clarify, the appropriate diagnosis supported by the clinical indicators: Gastritis: acute QUERY TEXT: PHYSICIAN'S DOCUMENTATION REQUEST Date of Query: 09/01/2024 11:01 AM EDT Patient Name: Pablito Camp Admit Date: 09/01/2024 Dear Manoj Rivera MD, A review of the medical record indicates additional documentation may be needed. Please review below and update the documentation accordingly. Clinical Indicators: Progress note dated 09/01/24 - Intractable abdominal pain likely secondary to Gastritis. Zofran as needed for nausea. Pantoprazole 40 mg b.i.d Clarify which of the following accurately represents the acuity and/or type of Gastritis documented i n the medical record: Possible options might include: Gastritis Acute, chronic, spastic, viral, alcoholic, hypertrophic etc. Other specified Other (explain) Clinically unable to determine (explain) Thank you, Jaqui Tamez, CCS, CDIS Use of terms such as suspected, likely, concern for, or probable (associated with a specific diagnosi s that is being evaluated, monitored, or treated as if it exists) are acceptable and can be coded in the inpatient se tting, when documented at the time of discharge. Please use your independent medical judgment in providing your response. THIS QUERY IS PART OF THE PERMANENT MEDICAL RECORD
--- NOTE | 2024-09-01 18:42 | PM.EVENT ---
Event Note Date of Service: 09/01/24 Event Note: GI Consult--Patient seen at noon. His was present as well. He has subsequently been discharged. Imp: Abd pain--this had resolved by the time I saw him. He had finished 2 meals and was comfortable with a benign abdomen. I advised him that given the location of the pain, his chronic use of PPI's, and the negative w/u with labs and CT scan, I would think PUD or significant gastritis would be unlikely. I would recommend an U/S of the GB to R/O gallstones that were not visible on the CT scan. Rec: U/S of the abdomen will need to be set up for him as an outpatient. He will need an eventual EGD/Colonoscopy for evaluation of his chronic GERD and for colorectal cancer screening, respectively. The EGD can be done sooner if the U/S is negative and his abdominal pain symptoms keep proving problematic. I told him to come back to the ER if things worsen at home with recurrent abdominal pains. D/W patient and in detail. They are comfortable with this plan. Thanks Time Spent With Patient Time: Total time managing care of this patient today ____ minutes.
--- NOTE | 2024-09-01 22:43 | CONS_ITS ---
DATE OF SERVICE: 09/01/2024 REASON FOR CONSULTATION: Abdominal pain. HISTORY OF PRESENT ILLNESS: This has been obtained from the patient, his who was present at the time of the interview, and the medical record. The patient is a 54-year-old male, who describes that he was in his usual state of health up until about 2 to 3 days prior to admission. At that time, he developed the onset of some sense of abdominal distention and progressive upper abdominal pain. This was located in the epigastric area with radiation throughout the upper abdomen. This seemed to be worsened by eating or drinking carbonated beverages. He had some vomiting, but there was no hematemesis nor coffee-ground emesis. He came to the ER initially on August 30 and had a workup including a CT scan that was nonrevealing. Specifically, there was no evidence of any gallstones, kidney stones, bowel obstruction nor biliary disease. He also had a chest x-ray that was nonrevealing as well. There was no free air. At that time, he was feeling better in the ER and was discharged. However, he subsequently presented again the following day due to recurrence of his pain. He has not noticed any signs of jaundice. He did not notice any melena, nor hematochezia. He was not having any significant diarrhea. He denies any dysuria or hematuria. Prior to the past several days, he had been feeling well. He denies any chronic GI complaints. He typically enjoys good appetite, but is on daily pantoprazole at home for reflux. He reports that works well for him. He denies any dysphagia. He denies ever having had an upper endoscopy or colonoscopy. He does have some history of alcohol use, but denies any problem with alcohol. He still drinks occasionally during the week. He does not use any aspirin or NSAIDs. He does not smoke. Here in the hospital, he has been feeling much better overnight. He has been able to tolerate breakfast and lunch today and has not had any recurrence of his abdominal pain. His laboratories have remained nonrevealing, including normal white blood cell count, stable hemoglobin, normal chemistries and normal LFTs. MEDICATIONS: At home, pantoprazole, labetalol, trazodone, doxazosin, Trulicity, insulin, lisdexamfetamine, metformin, oxcarbazepine. PAST MEDICAL HISTORY: Diabetes mellitus, gastroesophageal reflux, appendectomy, hernia surgery, tonsillectomy, history of alcohol abuse, PTSD. Substance abuse in the past. Hypertension. He denies history of IN or stroke. Other surgeries include rotator cuff surgery and hand surgery. SOCIAL HISTORY: He is . He does not smoke. He does not use any significant amount of alcohol at the present time by his description, although does have a history of that in the past. 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 FAMILY HISTORY: Noncontributory. REVIEW OF SYSTEMS: CONSTITUTIONAL: He has been feeling well up until the past several days. SKIN: No rash, no pruritus. CARDIAC: No chest pain. PULMONARY: No coughing or hemoptysis. GI: As above. URINARY: No dysuria, hematuria. NEUROLOGIC: No headaches. PHYSICAL EXAMINATION: GENERAL: The patient is a pleasant, alert, comfortable-appearing male. He is presently sitting up in a chair playing dominoes with his . He just finished lunch and is feeling well. SKIN: Warm and dry. Anicteric sclerae. NECK: Supple. CARDIAC: Normal S1, S2. ABDOMEN: Soft, nondistended, nontender without organomegaly or mass. EXTREMITIES: Without edema. LABORATORIES: Imaging studies and labs as above. He also had a normal lipase level on admission. His alcohol level was nondetectable. COVID was negative. IMPRESSION: At the present time, the patient appears well and his acute symptoms have resolved. He is presently with a benign abdomen and has been tolerating food. Given that the symptoms seem to be fairly acute in onset and with a couple of discrete episodes of the pain, while on high-dose PPI, I doubt this represents peptic ulcer disease or gastritis. This may very well represent gallstones given the location of the pain in the epigastric area and the intermittent nature of the symptoms. While CT scan is negative for gallstones, I would recommend an abdominal ultrasound for better inspection of the gallbladder as many times gallstones may not be well seen on CT scans. I did review with the patient and his that he should undergo eventual upper endoscopy given the chronic reflux, as well as the history of some alcohol abuse, so as to rule out Chaparro esophagus or other pathology. However, at this point since he is asymptomatic and doing well, I do not think that needs to be done urgently. I also advised him that he does need a screening colonoscopy as he has never had one. At this point since he is feeling well, I do not think anything needs to be done emergently, but I did advise him that he does need an abdominal ultrasound to definitively rule out gallstones as a cause of these couple of episodes of discrete abdominal pain. It looks like he might be going home today, so we will need to arrange as an outpatient. However, I did advise him that if the pain recurs once he is home and it is causing distress, he should come back to the ER for re-evaluation. I did advise him to continue his PPI medication. This has all been reviewed in detail with the patient and his . They are comfortable with the plan. MD NICK Lobato/MERLYN / [phone] MTDD
== END 2024-09-01 14:38 | disposition home or self-care (01) | DRG 392 ==
LOC: HO.ED 17:22 → HO.EDOVER 20:57 → HO.S3 09-01 07:36
PROVIDERS: Admitting Provider Physician Assistant; Emergency Provider Emergency Medicine; PCP Nurse Practitioner Family; Visit Provider Student in an Organized Health Care Education/Training Program
DX: K29.00 Acute gastritis without bleeding (principal); E11.65 Type 2 diabetes mellitus with hyperglycemia; E83.39 Other disorders of phosphorus metabolism; I10 Essential (primary) hypertension; F39 Unspecified mood [affective] disorder; K21.9 Gastro-esophageal reflux disease without esophagitis; F10.10 Alcohol abuse, uncomplicated; E11.43 Type 2 diabetes mellitus with diabetic autonomic (poly)neuropathy; K31.84 Gastroparesis; K76.0 Fatty (change of) liver, not elsewhere classified; Z91.148 Patient's other noncompliance with medication regimen for other reason; Z79.4 Long term (current) use of insulin; Z79.84 Long term (current) use of oral hypoglycemic drugs; Z79.85 Long-term (current) use of injectable non-insulin antidiabetic drugs; Z79.899 Other long term (current) drug therapy
CPT/HCPCS: 36415; 80048; 80053; 80307; 82010; 82803; 82947; 83036; 83735; 84100; 85025; 85027; 93005; 99221; 99285; J0737; J1171; J1790; J2405; J2470; J2765; J3360; J7120

== ENCOUNTER → 2024-08-31 16:16 | Outpatient (BNV) | payer OTHER, SELFPAY | PROVIDERS: Admitting Provider Physician Assistant; Emergency Provider Emergency Medicine; PCP Nurse Practitioner Family; Visit Provider Internal Medicine | DX: R10.9 Unspecified abdominal pain (principal) | CPT/HCPCS: 93010 ==

== ENCOUNTER → 2024-08-31 20:52 | Outpatient (BNV) | payer OTHER, SELFPAY | PROVIDERS: Admitting Provider Physician Assistant; Emergency Provider Emergency Medicine; Visit Provider Student in an Organized Health Care Education/Training Program | DX: R10.9 Unspecified abdominal pain (principal); E11.65 Type 2 diabetes mellitus with hyperglycemia; K29.70 Gastritis, unspecified, without bleeding; E87.21 Acute metabolic acidosis; E83.39 Other disorders of phosphorus metabolism; F10.90 Alcohol use, unspecified, uncomplicated | CPT/HCPCS: 99223; 99239 ==

== ENCOUNTER 2024-09-02 05:15 | Emergency (ER) | payer OTHER, SELFPAY ==
--- NOTE | 2024-09-02 | ECG_ITS ---
Test Reason : abd pain Blood Pressure : */* mmHG Vent. Rate : 82 BPM Atrial Rate : 82 BPM P-R Int : 154 ms QRS Dur : 84 ms QT Int : 414 ms P-R-T Axes : 17 -1 3 degrees QTcB Int : 483 ms Normal sinus rhythm Prolonged QT Abnormal ECG When compared with ECG of 31-Aug-2024 16:34, No significant change was found Referred By: Generic ED Physician Electronically Signed By: BERENICE SPENCER
--- NOTE | ~2024-09-02 | US_ITS ---
EXAMINATION: US ABDOMEN LIMITED HISTORY: RUQ abd pain TECHNIQUE: Real-time grayscale ultrasound imaging of the right upper quadrant was performed and images were reviewed. COMPARISON: Correlation is made with a CT of the abdomen with contrast dated 08/30/2024. FINDINGS: Liver: The right lobe of the liver measures 16.8 cm in size. The left lobe of the liver measures 8.1 cm in size. The liver demonstrates increased echotexture, consistent with steatosis. No focal mass or intrahepatic biliary ductal dilatation is identified. There is normal hepatopedal flow in the portal vein. Gallbladder and biliary tree: The gallbladder is unremarkable, without evidence of calculi, wall thickening, or pericholecystic fluid. There is no sonographic Mckenzie sign. The common bile duct is normal in caliber measuring 4 mm. Right Kidney: The right kidney measures 13.6 cm in length. The right kidney is unremarkable, without evidence of masses, hydronephrosis, or calculi. Pancreas: The pancreatic head, neck, and body are unremarkable. The pancreatic tail is obscured by bowel gas. Abdominal aorta and inferior vena cava: The visualized portions of the abdominal aorta and inferior vena cava are normal in caliber. There is no free fluid in the right upper quadrant. US/US abdomen limited IMPRESSION: Hepatic steatosis. Otherwise unremarkable right upper quadrant ultrasound. Electronically signed by: Ceferino Mota MD 09/02/2024 08:53 AM EDT
[2024-09-02 05:21] VITALS: BP 146/90; PULSE 86; RESP 20; TEMP 36.8; O2SAT 99; BMI 35.3
[2024-09-02 05:32] VITALS: RESP 20
[2024-09-02 05:36] LABS: Glucose, Whole Blood 229 mg/dL (60-115)
--- NOTE | 2024-09-02 05:38 | PC.NURSE ---
assumed care of ptREMINGTON from home. Pt complains of upper abdominal pain, constipation and nausea. Pain 7/10 after receiving 300 mcg fentanyl by EMS. 4 mg Zofran given by EMS. Listened to abd, sounds in all four quadrants. Respirations slightly labored but clear.
[2024-09-02 05:54] LABS: Alanine Aminotransferase 32 U/L (0-40); Albumin Level 4.7 g/dL (3.5-5.0); Alkaline Phosphatase 78 U/L (39-117); Anion Gap 17 (12-20); Aspartate Amino Transferase 29 U/L (5-37); Bilirubin Total 0.6 mg/dL (0.0-1.0); Blood Urea Nitrogen 16 mg/dL (9-16); Calcium 9.5 mg/dL (8.4-10.2); Carbon Dioxide 18 mmol/L (22-29); Chloride 106 mmol/L (96-108); Creatinine Clr Calc Pharmacy 91.3; Estimated Glomerular Filt Rate > 60; Glucose Random 244 mg/dL (60-115); Lipase 29 U/L (8-78); Potassium 3.8 mmol/L (3.3-5.1); Sodium 137 mmol/L (135-145); Total Protein 7.6 g/dL (6.5-8.0)
--- OUTSIDE RECORDS SUMMARY | 2024-09-02 05:54 | XMS_ITS | Clinical Summary ---
Author Organization [facility] Address [address] [place] [address] Care Team Providers Care Curator Of Photography And Prints Name Role Phone Truman Brock MD Primary Care Provider [phone] Surgical History Surgery Date Site/Laterality Comments ESOPHAGOGASTRODUODENOSCOPY 12/30/06 PROCEDURE: AR EGD TRANSORAL BIOPSY SINGLE/MULTIPLE; COMMENT: r/o BE-bx:reflux esophagitis, gastritis-bx:mild chronic inflammation H. pylori negative. APPENDECTOMY 08/08 PROCEDURE: AR APPENDECTOMY VASECTOMY PROCEDURE: AR VASECTOMY UNI/BI SPX W/POSTOP SEMEN EXAMS HERNIA REPAIR PROCEDURE: HISTORICAL HERNIA REPAIR/ING; COMMENT: left, SHOULDER SURGERY PROCEDURE: HISTORICAL SHOULDER SURGERY; COMMENT: 2012 - left rot cuff and labrum OTHER SURGICAL HISTORY 06/15/2015 Right PROCEDURE: AR UNLISTED PROCEDURE ORBIT; COMMENT: Alloplastic implant for right orbital floor fracture. [facility] Dr. Santoyo MOLE REMOVAL 04/22/2018 PROCEDURE: HISTORICAL MOLE (REMOVAL OF); COMMENT: atypical mole, glabella OTHER SURGICAL HISTORY 06/05/2018 PROCEDURE: AR EXCISION PILONIDAL CYST/SINUS COMPLICATED; COMMENT: Dr Mccormick, [facility] KNEE ARTHROSCOPY W/ MENISCAL REPAIR Left PROCEDURE: AR ARTHROSCOPY KNEE W/MENISCUS RPR MEDIAL/LATERAL; COMMENT: [facility] TONSILLECTOMY PROCEDURE: HISTORICAL TONSILLECTOMY HAND SURGERY PROCEDURE: HISTORICAL HAND SURGERY; COMMENT: left trigger thumb [facility] Medical History Medical History Date Comments Heartburn 11/21/2005 DX:Heartburn Depressive disorder, not els ewhere classified 11/21/2005 DX:Depressive disorder, not elsewhere classified Temporomandibular joint diso rders, unspecified 11/21/2005 DX:Temporomandibular joint disorders, unspecified Alcohol abuse 05/23/2010 DX:Alcohol abuse Cocaine abuse ([facility] V24, [facility] V28) 05/23/2010 DX:Cocaine abuse ([facility]) Difficulty concentrating 10/14/2014 DX:Diff iculty concentrating Numbness of finger 10/14/2014 DX:Numbness o f finger Atypical chest pain 10/14/2014 DX:Atypical chest pain Hyperglycemia 03/31/2015 DX:Hyperglycemia DM (diabetes mellitus), type 2 with renal complications ([facility] V24, [facility] V28) 04/17/2016 DX:DM (diabetes mellitus), t ype 2 with renal complications ([facility]) Microalbuminuria 10/05/2020 DX:Microalbumin uria Alcohol use disorder, modera te, in sustained remission ([facility] V24, [facility] V28) 05/23/2010 DX:Alcohol use disorder, mod erate, in sustained remission ([facility]) Hypertension 08/21/2017 DX:Hypertension Severe obesity with body mas s index (BMI) of 35.0 to 39.9 with comorbidity ([facility] V24, [facility] V28) 08/21/2017 DX:Severe obesity with body mass index (BMI) of 35.0 to 39.9 with comorbidity ([facility]) Family History Medical History Relation Name Comments [...] age to complete this topic Care Teams Curator Of Photography And Prints Relationship Specialty Start Date End Date Truman Brock MD [address] [facility] [address] PCP - General Internal Medicine 11/02/20
[2024-09-02 06:02] LABS: Troponin-I High Sensitivity 11.9 ng/L (<3.5-35.0)
[2024-09-02 06:09] VITALS: BP 120/82; PULSE 69; RESP 15; O2SAT 98
[2024-09-02 06:18] LABS: Basophils Percent Auto 0.3 % (0-2); Eosinophils Percent Auto 0.2 % (0-4); Hematocrit 38.5 % (42.0-52.0); Imm Gran Abs Auto 0.03 X10*3/uL (0.00-0.03); Imm Gran Pct Auto 0.5 % (0.0-0.4); Lymphocytes Absolute Auto 1.6 X10*3/uL (1.2-4.9); Lymphocytes Percent Auto 24.2 % (20-40); Mean Corpuscular Volume 80.7 fL (80.0-98.0); Mean Platelet Volume 10.3 fL (9.4-12.4); Monocytes Absolute Auto 0.4 X10*3/uL (0.1-1.2); Monocytes Percent Auto 6.7 % (2-11); Neutrophils Absolute Auto 4.5 x10*3/uL (2.0-8.3); Neutrophils Percent Auto 68.1 % (45-73); Platelet Count 158 X10*3/uL (160-400); Red Blood Count 4.77 X10*6/uL (4.60-5.80); Red Cell Distribution Width 12.2 % (11.0-16.0); SCAN SMEAR FLAG 1; White Blood Count 6.6 X10*3/uL (4.8-10.8)
[2024-09-02 06:29] LABS: Mean Corpuscular HGB Conc 36.4 g/dl (31.0-36.0)
[2024-09-02 06:30] LABS: Mean Corpuscular Hemoglobin 29.4 pg (27.0-33.0)
[2024-09-02 07:22] LABS: Ethanol < 10 mg/dL
--- NOTE | 2024-09-02 07:44 | ED_ITS ---
HPI - Abdominal Pain General Chief Complaint: Abdominal Pain Stated Complaint: Abdominal pain Time Seen by Provider: 09/02/24 07:24 Source: patient Mode of arrival: EMS Limitations: no limitations History of Present Illness ED Provider: HPI narrative: Patient is a 54-year-old male who is representing with epigastric abdominal pain started having abdominal pain after eating watermelon having cramps, called EMS was given 300 mcg of fentanyl and Zofran by the time he presented to emergency department he felt better. He states that GI provider told him that he will need endoscopy and ultrasound to rule out gallbladder issues. No hematemesis or hematochezia no chest pain or shortness of breath. Related Data Home Medications ?Medication ?Instructions ?Recorded ?Confirmed labetalol 200 mg tablet 200 mg PO BID 08/19/20 08/31/24 pantoprazole 40 mg tablet,delayed 40 mg PO BID@0630,1630 01/06/24 08/31/24 release trazodone 100 mg tablet 200 mg PO BEDTIME 01/06/24 08/31/24 acetaminophen 500 mg tablet 1,000 mg PO Q6H PRN Pain 08/31/24 08/31/24 doxazosin 4 mg tablet 4 mg PO BEDTIME 08/31/24 08/31/24 dulaglutide 1.5 mg/0.5 mL 1.5 mg subcut QWEEK 08/31/24 08/31/24 subcutaneous pen injector (Trulicity) insulin glargine-yfgn 100 unit/mL 24 unit subcut BEDTIME 08/31/24 08/31/24 (3 mL) subcutaneous pen lisdexamfetamine 50 mg capsule 50 mg PO DAILY PRN focus/adhd 08/31/24 08/31/24 metformin 500 mg tablet 1,000 mg PO BIDWM 08/31/24 08/31/24 oxcarbazepine 600 mg tablet 600 mg PO BID 08/31/24 08/31/24 Previous Rx's ?Medication ?Instructions ?Recorded bupropion HCl 150 mg 24 hr tablet, 150 mg PO DAILY 30 days #30 tabs 01/16/24 extended release fluoxetine 20 mg capsule 40 mg (2 x 20 mg) PO DAILY 30 days 01/16/24 #60 caps insulin lispro 100 unit/mL See Protocol subcut USEASDIRECTD 09/01/24 subcutaneous pen (Humalog KwikPen #15 mL (U-100) Insulin) pen needle, diabetic 31 gauge x #1,200 ea 09/01/24 5/16 (Pen Needle) sucralfate 1 gram tablet (Carafate) 1 g PO Q6H 7 days #28 tabs 09/02/24 Allergies Allergy/AdvReac Type Severity Reaction Status Date / Time No Known Allergies Allergy Verified 09/02/24 05:25 [No Known Allergies*] Review of Systems Constitutional: Reports as per HPI [facility] Past Medical History Medical History Major depressive disorder Cocaine use disorder Alcohol use disorder Diabetes mellitus, type II, insulin dependent Hypertension GERD (gastroesophageal reflux disease) Opioid use disorder, moderate, in sustained remission Surgical History S/P appendectomy Hx of hernia repair S/P tonsillectomy S/P rotator cuff repair Hx of hand surgery Social History Social History Household Members: Spouse and Children Housing: House Do you presently have visiting nurse or other home services: No Alcohol intake: current Alcohol type: beer Patient Tobacco Use Status: Never used Tobacco Smoked in Last 30 Days: No Use of substances other than those prescribed or required for medical reasons: No Substance Use Type: Marijuana Advance Directives: No Do you have a plan to hurt others: No Plan service: No Sexual orientation: Straight/Heterosexual Physical Exam ED Vital Signs: Vital Signs - 24 hr 09/02/24 05:21 09/02/24 05:32 09/02/24 06:09 Temperature 98.2 F Pulse Rate 86 69 Respiratory Rate 20 20 15 Blood Pressure 146/90 H 120/82 Pulse Oximetry 99 98 Oxygen Delivery Method Room Air Room Air BMI result Body Mass Index 35.3 Const Other: * Gen: ?Overall well-appearing patient * HEENT: PERRLA, EOMI, MMM, * Neck: Supple, no LAD * CV: RRR, no obvious murmurs appreciated * Resp: ?No wheezing rales rhonchi no stridor moving air well * Abd: ?Bowel sounds are present, epigastric tenderness no rebound no rigidity no tenderness in the lower quadrant * MSK: FROM, strength 5/5 all extremities * Skin: Warm, dry, intact, * Neuro: ?Alert and oriented x3, moving upper and lower extremities symmetrically, no obvious facial asymmetry noted Medical Decision Making Medical Decision Making [facility] Narrative: Patient had recently been admitted for dehydration, alcohol use disorder, head CT that did not reveal any intra-abdominal issues, presented as he stated in significant amount of pain he did receive have 2 dose of fentanyl so the time my evaluation he is asymptomatic, he states a GI provider told him that 1 of the considerations for him would be gallbladder pathology and so I will obtain ultrasound for the evaluation, we will provide additional medications for abdominal discomfort, otherwise he does not appear to be in DKA, somewhat hypoglycemic, we had a lengthy discussion regarding dietary changes, caffeine, alcohol. 09:00 patient re-evaluated, still feeling well discussed studies with him and workup see my discharge instructions we will discharge Differential Diagnosis Differential Diagnoses: The differential diagnosis associated with the presentation includes Cholecystitis, pancreatitis, hepatitis, gastritis, cholangitis, choledocholithiasis, SBO, ACS, DKA Admission/Observation Consideration of admission/observation: Escalation of care including admission/observation considered Lab Data [facility] Lab Attestation statement: I reviewed the patient's lab results. 09/02/24 05:33 09/02/24 05:33 Labs: Lab Results 09/02/24 09/02/24 Range/Units 05:21 05:33 WBC 6.6 (4.8-10.8) X10*3/uL RBC 4.77 (4.60-5.80) X10*6/uL Hgb 14.0 (14.0-18.0) g/dl Hct 38.5 L (42.0-52.0) % MCV 80.7 (80.0-98.0) fL MCH 29.4 (27.0-33.0) pg MCHC 36.4 H (31.0-36.0) g/dl RDW 12.2 (11.0-16.0) % Plt Count 158 L (160-400) X10*3/uL MPV 10.3 (9.4-12.4) fL Immature Gran % (Auto) 0.5 H (0.0-0.4) % Neut % (Auto) 68.1 (45-73) % Lymph % (Auto) 24.2 (20-40) % [place] % (Auto) 6.7 (2-11) % Eos % (Auto) 0.2 (0-4) % Baso % (Auto) 0.3 (0-2) % Lymph # (Auto) 1.6 (1.2-4.9) X10*3/uL [place] # (Auto) 0.4 (0.1-1.2) X10*3/uL Eos # (Auto) 0.0 (0.0-0.4) X10*3/uL Baso # (Auto) 0.0 (0.0-0.2) X10*3/uL Abs Immat Gran (auto) 0.03 (0.00-0.03) X10*3/uL Absolute Neuts (auto) 4.5 (2.0-8.3) x10*3/uL Absolute Nucleated RBC 0.000 (0.0-0.012) X10*3/uL Nucleated RBC % (auto) 0.0 (0.0-0.2) /100WBC Sodium 137 (135-145) mmol/L Potassium 3.8 (3.3-5.1) mmol/L Chloride 106 (96-108) mmol/L Carbon Dioxide 18 L (22-29) mmol/L Anion Gap 17 (12-20) BUN 16 (9-16) mg/dL Creatinine 1.24 (0.5-1.4) mg/dL Estim Creat Clear Calc 91.3 Estimated GFR > 60 POC Glucose 229 H (60-115) mg/dL Random Glucose 244 H (60-115) mg/dL Calcium 9.5 D (8.4-10.2) mg/dL Total Bilirubin 0.6 (0.0-1.0) mg/dL AST 29 (5-37) U/L ALT 32 (0-40) U/L Alkaline Phosphatase 78 (39-117) U/L Troponin I High Sens 11.9 (<3.5-35.0) ng/L Total Protein 7.6 (6.5-8.0) g/dL Albumin 4.7 (3.5-5.0) g/dL Lipase 29 (8-78) U/L Ethyl Alcohol < 10 mg/dL Radiology Impression Discussion of test interpretation with radiology: I have reviewed the radiologist's reading. Radiologist Impression: Hepatic steatosis. Otherwise unremarkable right upper quadrant ultrasound. Medications Administered Discontinued Medications Generic Name Dose Route Start Last Admin Trade Name Marlen PRN Reason Stop Dose Admin Al Hydroxide/Mg Hydroxide 30 ml 09/02/24 07:41 09/02/24 07:49 Magnesium Hydrox/Alum Hydrox 30 Ml Oral.Susp PO 09/02/24 07:42 30 ml ONCE ONE Administration Sodium Chloride 1,000 mls @ 999 mls/hr 09/02/24 07:45 09/02/24 07:49 Ns IV 09/02/24 08:45 999 mls/hr .Q1H1M DIPAK Administration Lidocaine HCl 15 ml 09/02/24 07:41 09/02/24 07:48 Lidocaine Hcl Viscous 2 % 15 Ml Solution PO 09/02/24 07:42 15 ml ONCE ONE Administration Ondansetron HCl 4 mg 09/02/24 07:41 09/02/24 07:49 Ondansetron Hcl 4 Mg/2 Ml Vial IVPUSH 09/02/24 07:42 4 mg ONCE ONE Administration Discharge Plan Discharge Clinical Impression: Epigastric abdominal pain Nausea & vomiting Qualifiers: Vomiting type: unspecified Qualified Code(s): R11.2 - Nausea with vomiting, unspecified Patient Disposition: Home, Self-Care Additional Instructions: As discussed except for slightly elevated glucose your blood work has been reassuring, ultrasound with hepatic steatosis without any gallbladder issues, we have had a fairly extensive discussion regarding dietary changes and so helpful tips, for the next 1 week what I find useful is you take Carafate 1 pill 20 minutes before any meals, continue with the Protonix and continue with new dietary approach. Follow up with the PCP, recommend referral to GI for endoscopy. Any other issues concerns come back to the ER Prescriptions: New sucralfate [Carafate] 1 gram tablet 1 g PO Q6H 7 Days Qty: 28 0RF No Action trazodone 100 mg tablet 200 mg PO BEDTIME pantoprazole 40 mg tablet,delayed release (DR/EC) 40 mg PO BID@0630,1630 fluoxetine 20 mg Capsule 40 mg PO DAILY 30 Days Qty: 60 1RF bupropion HCl 150 mg Tablet Extended Release 24 Hr 150 mg PO DAILY 30 Days Qty: 30 1RF doxazosin 4 mg tablet 4 mg PO BEDTIME oxcarbazepine 600 mg tablet 600 mg PO BID acetaminophen 500 mg Tablet 1,000 mg PO Q6H PRN (Reason: Pain) metformin 500 mg tablet 1,000 mg PO BIDWM Rx Instructions: has not started, first fill at pharmacy 08/30/24 lisdexamfetamine 50 mg capsule 50 mg PO DAILY PRN (Reason: focus/adhd) Trulicity 1.5 mg/0.5 mL pen injector 1.5 mg subcut QWEEK insulin glargine-yfgn 100 unit/mL (3 mL) insulin pen 24 unit SUBCUT BEDTIME insulin lispro [Humalog KwikPen Insulin] 100 unit/mL insulin pen See Protocol subcut USEASDIRECTD Qty: 15 0RF Protocol: Insulin Correction Scale Less than or equal to 110 ---- Give (units): 0 111 to 150 Give (units): 0 151 to 200 Give (units): 2 201 to 250 Give (units): 4 251 to 300 Give (units): 6 301 to 350 Give (units): 8 Greater than 350 Give (units): 10 Call MD if Blood Glucose > : 350 Rx Instructions: glucose <100 mg/dL: No insulin 100 to 150 mg/dL: 2 units 151 to 200 mg/dL: 4 units 201 to 250 mg/dL: 6 units 251 to 300 mg/dL: 8 units 300 to 350 mg/dL: 10 units >350 take 12 units, contact provider (DME) pen needle, diabetic [Pen Needle] 31 gauge x 5/16 needle See Rx Instructions .ROUTE .MEDSUPPLY Qty: 1200 0RF Rx Instructions: QIDACH labetalol 200 mg tablet 200 mg PO BID Print Language: Swedish
[2024-09-02] MEDS: Lidocaine HCl Viscous 2 % 15 ML SOLUTION PO (07:48)
[2024-09-02] MEDS: ondansetron HCL 4 MG/2 ML VIAL IVPUSH (07:49)
[2024-09-02] MEDS: Magnesium Hydrox/Alum Hydrox 30 ML ORAL.SUSP PO (07:49)
[2024-09-02] MEDS: 0.9 % Sodium Chloride 1,000 ML 999 ML IV (07:49)
[2024-09-02 09:24] VITALS: BP 120/82; PULSE 69; RESP 15; TEMP 36.6; O2SAT 98
== END 2024-09-02 10:02 | disposition home or self-care (01) ==
PROVIDERS: Emergency Provider Emergency Medicine; PCP Nurse Practitioner Family
DX: R10.13 Epigastric pain (principal); R11.2 Nausea with vomiting, unspecified; E11.9 Type 2 diabetes mellitus without complications; I10 Essential (primary) hypertension; K21.9 Gastro-esophageal reflux disease without esophagitis; Z79.4 Long term (current) use of insulin; Z79.899 Other long term (current) drug therapy
CPT/HCPCS: 36415; 76705; 80053; 80307; 82947; 83690; 84484; 85025; 93005; 96361; 96374; 99284; 99285; J2405

== ENCOUNTER → 2024-09-02 05:27 | Outpatient (BNV) | payer OTHER, SELFPAY | PROVIDERS: Emergency Provider Emergency Medicine; PCP Nurse Practitioner Family; Visit Provider Internal Medicine | DX: R94.31 Abnormal electrocardiogram [ECG] [EKG] (principal); R10.9 Unspecified abdominal pain | CPT/HCPCS: 93010 ==

== ENCOUNTER → 2024-09-02 07:41 | Outpatient (BNV) | payer OTHER, SELFPAY | PROVIDERS: Emergency Provider Emergency Medicine; PCP Nurse Practitioner Family; Visit Provider Radiology Diagnostic Radiology | DX: K76.0 Fatty (change of) liver, not elsewhere classified (principal) | CPT/HCPCS: 76705 ==

== ENCOUNTER 2024-09-04 10:07 | Day surgery (SDC) | payer OTHER, SELFPAY ==
[2024-09-04] VITALS (7 sets, daily range): BP systolic 106–150; BP diastolic 49–93; PULSE 69–77; RESP 14–16; TEMP 36.6; O2SAT 96–100; BMI 33.2
--- OUTSIDE RECORDS SUMMARY | 2024-09-04 08:31 | XMS_ITS | Clinical Summary ---
Author Organization [facility] Address [address] [place] [address] Care Team Providers Care Real Estate Legal Secretary Name Role Phone Truman Brock MD Primary Care Provider [phone] Surgical History Surgery Date Site/Laterality Comments ESOPHAGOGASTRODUODENOSCOPY 12/30/06 PROCEDURE: IN EGD TRANSORAL BIOPSY SINGLE/MULTIPLE; COMMENT: r/o BE-bx:reflux esophagitis, gastritis-bx:mild chronic inflammation H. pylori negative. APPENDECTOMY 08/08 PROCEDURE: IN APPENDECTOMY VASECTOMY PROCEDURE: IN VASECTOMY UNI/BI SPX W/POSTOP SEMEN EXAMS HERNIA REPAIR PROCEDURE: HISTORICAL HERNIA REPAIR/ING; COMMENT: left, SHOULDER SURGERY PROCEDURE: HISTORICAL SHOULDER SURGERY; COMMENT: 2012 - left rot cuff and labrum OTHER SURGICAL HISTORY 06/15/2015 Right PROCEDURE: IN UNLISTED PROCEDURE ORBIT; COMMENT: Alloplastic implant for right orbital floor fracture. [facility] Dr. Santoyo MOLE REMOVAL 04/22/2018 PROCEDURE: HISTORICAL MOLE (REMOVAL OF); COMMENT: atypical mole, glabella OTHER SURGICAL HISTORY 06/05/2018 PROCEDURE: IN EXCISION PILONIDAL CYST/SINUS COMPLICATED; COMMENT: Dr Mccorimck, [facility] KNEE ARTHROSCOPY W/ MENISCAL REPAIR Left PROCEDURE: IN ARTHROSCOPY KNEE W/MENISCUS RPR MEDIAL/LATERAL; COMMENT: [facility] TONSILLECTOMY PROCEDURE: HISTORICAL TONSILLECTOMY HAND SURGERY PROCEDURE: HISTORICAL HAND SURGERY; COMMENT: left trigger thumb [facility] Medical History Medical History Date Comments Heartburn 11/21/2005 DX:Heartburn Depressive disorder, not els ewhere classified 11/21/2005 DX:Depressive disorder, not elsewhere classified Temporomandibular joint diso rders, unspecified 11/21/2005 DX:Temporomandibular joint disorders, unspecified Alcohol abuse 05/23/2010 DX:Alcohol abuse Cocaine abuse ([facility] V24, [facility] V28) 05/23/2010 DX:Cocaine abuse ([facility]) Difficulty concentrating 10/14/2014 DX:Diff iculty concentrating Numbness of finger 10/14/2014 DX:Numbness o f finger Atypical chest pain 10/14/2014 DX:Atypical chest pain Hyperglycemia 03/31/2015 DX:Hyperglycemia DM (diabetes mellitus), type 2 with renal complications ([facility] V24, [facility] V28) 04/17/2016 DX:DM (diabetes mellitus), t ype 2 with renal complications ([facility]) Microalbuminuria 10/05/2020 DX:Microalbumin uria Alcohol use disorder, modera te, in sustained remission ([facility] V24, [facility] V28) 05/23/2010 DX:Alcohol use disorder, mod erate, in sustained remission ([facility]) Hypertension 08/21/2017 DX:Hypertension Severe obesity with body mas s index (BMI) of 35.0 to 39.9 with comorbidity ([facility] V24, [facility] V28) 08/21/2017 DX:Severe obesity with body mass index (BMI) of 35.0 to 39.9 with comorbidity ([facility]) Family History Medical History Relation Name Comments [...] age to complete this topic Care Teams Real Estate Legal Secretary Relationship Specialty Start Date End Date Truman Brock MD [address] [place] [address] PCP - General Internal Medicine 11/02/20
--- NOTE | 2024-09-04 10:33 | P.CONAN_ITS ---
HPI - Anesthesia Eval Consult details Narrative: upper endo elective PMFSH Active Problems Active Problems: All Active Problems Uncontrolled diabetes mellitus with hyperglycemia (Acute) Hypophosphatemia (Acute) Metabolic acidosis (Acute) Hyperglycemia (Acute) Gastritis (Acute) Intractable abdominal pain (Acute) Hx of hernia repair (Acute) Hx of hand surgery (Acute) S/P rotator cuff repair (Acute) S/P tonsillectomy (Acute) History of developmental disorder (Acute) Other impulse disorders (Acute) Alcohol use disorder (Acute) Cocaine use disorder (Acute) PTSD (post-traumatic stress disorder) (Acute) Major depressive disorder (Acute) Opioid use disorder (Acute) Past Medical History Medical History Major depressive disorder Cocaine use disorder Alcohol use disorder Diabetes mellitus, type II, insulin dependent Hypertension GERD (gastroesophageal reflux disease) Opioid use disorder, moderate, in sustained remission Family History Family history of problems with anesthesia: No Surgical History Surgical History S/P appendectomy Hx of hernia repair S/P tonsillectomy S/P rotator cuff repair Hx of hand surgery History of Problems with Anesthesia: No Social History Social History Household Members: Spouse and Children Housing: House Are you a primary intensive care ambulance paramedic to a significant other at home: No Do you presently have visiting nurse or other home services: No Alcohol intake: current Alcohol intake frequency: a few times a week Alcohol type: beer Patient Tobacco Use Status: Never used Tobacco Use of substances other than those prescribed or required for medical reasons: Yes Substance Use Type: Marijuana Substance Use Frequency: Daily Have you been hit, kicked, punched, or otherwise hurt by someone within the past year? If so, by whom?: No Are you DNR?: No Advance Directives: No Advance Directives Information Provided: Yes Poor oral hygiene: Yes service: No Sexual orientation: Straight/Heterosexual Meds Allergies Allergy/AdvReac Type Severity Reaction Status Date / Time No Known Allergies Allergy Verified 09/04/24 10:28 [No Known Allergies*] Home Medications ?Medication ?Instructions ?Recorded ?Confirmed ?Last Taken ?Type labetalol 200 mg tablet 200 mg PO BID 08/19/20 08/31/24 08/31/24 History pantoprazole 40 mg tablet,delayed 40 mg PO BID@0630,1630 01/06/24 08/31/24 08/31/24 History release trazodone 100 mg tablet 200 mg PO BEDTIME 01/06/24 08/31/24 08/30/24 History acetaminophen 500 mg tablet 1,000 mg PO Q6H PRN Pain 08/31/24 08/31/24 Unknown History doxazosin 4 mg tablet 4 mg PO BEDTIME 08/31/24 08/31/24 08/30/24 History dulaglutide 1.5 mg/0.5 mL 1.5 mg subcut QWEEK 08/31/24 09/04/24 08/03/24 History subcutaneous pen injector (Trulicity) insulin glargine-yfgn 100 unit/mL 24 unit subcut BEDTIME 08/31/24 08/31/24 Unknown History (3 mL) subcutaneous pen lisdexamfetamine 50 mg capsule 50 mg PO DAILY PRN focus/adhd 08/31/24 08/31/24 Unknown History metformin 500 mg tablet 1,000 mg PO BIDWM 08/31/24 08/31/24 Unknown History oxcarbazepine 600 mg tablet 600 mg PO BID 08/31/24 08/31/24 08/31/24 History Exam Height,Weight and Vital Signs: Height 6 ft Weight 111 kg Last Vital Signs Temp 97.8 F 09/04/24 10:29 Pulse 69 09/04/24 10:29 Resp 14 09/04/24 10:29 BP 132/91 H 09/04/24 10:29 Pulse Ox 96 09/04/24 10:29 O2 Del Method Room Air 09/04/24 10:29 Airway Mallampati Class: II TM Dist: >3cm Neck ROM: Full Heart: rrr Lungs: cta Assessment and Plan Assessment Anesthesia Assessment: Anesthesia Plan Discussed Final Anesthetic Review Family History of Problems with Anesthesia: No History of Problems with Anesthesia: No NPO: Yes ASA Class: III (coccaine and opioid abuse, will chk screen) Final Preanesthetic Review: No Changes in Pt Med Stat, Meds/Allgs Chart Reviewed, Consent Obtained/Reviewed and Anes Risks/Benef Reviewed Patient Risk: Intermediate Procedure Risk: Low Anesthetic Plan Anesthetic Plan: MAC: Disposition: Standard PACU
[2024-09-04 10:52] LABS: Glucose, Whole Blood 135 mg/dL (60-115)
--- NOTE | 2024-09-04 12:33 | PM.OP ---
Brief Operative Note Date of Service: 09/04/24 Pre-op diagnosis: Abdominal pain Post-op diagnosis: other (Hiatal hernia, Mild gastritis) Procedure: EGD with biopsies Surgeon: Ceferino Gee MD Anesthesia: GETA Was an Learning And Development Intern used for this Procedure?: No Estimated blood loss (mL): 2.0 Pathology: other (A. Gastric antrum B. EG Junction at 40cm) Condition: stable Disposition: PACU
--- NOTE | 2024-09-04 13:34 | OP_ITS ---
DATE OF SERVICE: 09/04/2024 SURGEON: Ceferino Gee MD INDICATIONS: The patient presents for evaluation of abdominal pain. Full consent has been obtained from him for this, including risks of bleeding and perforation. PREOPERATIVE DIAGNOSIS: Abdominal pain. POSTOPERATIVE DIAGNOSIS: PROCEDURE PERFORMED: Esophagogastroduodenoscopy with biopsies. ESTIMATED BLOOD LOSS: COMPLICATIONS: ANESTHESIA: The patient was initially started with monitored anesthesia care, but during the procedure, this had to be converted to general anesthesia via endotracheal intubation. ASSISTANTS: SPECIMENS: POSTOPERATIVE DIAGNOSES: Abdominal pain, very mild changes of chronic gastritis, small hiatal hernia, changes of gastroesophageal reflux, rule out Chaparro's esophagus. DESCRIPTION OF PROCEDURE: The patient was placed in the left lateral decubitus position. The Olympus video gastroscope was passed in the posterior oropharynx and upper esophagus under direct vision. The scope was passed slowly to the distal esophagus. The gastroesophageal junction appeared at 40 cm. There was some slight irregularity consistent with reflux and possibly small, less than 1 cm areas of Marvin'st mucosa. There was no esophagitis nor any lesions. There was a small hiatal hernia. The scope was advanced to the pylorus, and the duodenum was cannulated to the descending portion. The duodenum including the bulb appeared normal without mass or ulceration. The scope was withdrawn back to the stomach. At that point, he became difficult to ventilate for the anesthesiologists and the scope was removed. He was subsequently intubated. The gastroscope was again passed under direct vision into the posterior oropharynx and upper esophagus. The scope was entered into the stomach and advanced to the pylorus. The duodenum was again inspected and appeared normal. The scope was withdrawn back to the stomach. The gastric antrum had some areas of edema and erythema but no erosions or ulceration. There was good peristalsis. The scope was retroflexed visualizing the proximal stomach carefully, which appeared normal, without any sign of mass or ulceration. The scope was straightened. There was good peristalsis. Biopsies were obtained from the gastric antrum. The scope was withdrawn back to the esophagus. Biopsies were obtained at 40 cm. Proximal to this, the esophageal mucosa appeared normal. The scope was then withdrawn from the patient. He was extubated in the endoscopy room and transferred to the recovery area in stable condition. IMPRESSION: 1. Small hiatal hernia, gastroesophageal reflux, rule out Chaparro's esophagus. 2. Mild changes of gastritis, rule out Helicobacter pylori. PLAN: The results of the biopsies will be checked. Based on what I saw today I do not see any cause of his abdominal pain. If H pylori is present on the gastric biopsies we could consider treating that, although I am not sure if that would really give him any relief from the recent episodes of abdominal pain. A recent abdominal ultrasound including the gallbladder was normal. We may need to consider obtaining a HIDA scan with CCK to rule out acalculous cholecystitis if the episodes of pain persist. In regard to his need for intubation during the procedure, the anesthesiologists were concerned about the enlarged tissue in the tonsillar areas. He was given instructions to obtain an ENT referral from his PCP in that regard. He may very well have a component of sleep apnea as well given his body habitus. This may need further evaluation with a sleep study or some other workup by his PCP. This has all been discussed with the patient and his , and he was given written instructions in that regard. He will be seen in followup as well in the office and will need an eventual colonoscopy for screening purposes. MD NICK Lobato/MERLYN / [id number] [email or web address]
== END 2024-09-04 13:14 | disposition home or self-care (01) ==
PROVIDERS: PCP Nurse Practitioner Family; Visit Provider Internal Medicine
PROC: 0DJ08ZZ Inspection of Upper Intestinal Tract, Via Natural or Artificial Opening Endoscopic (ICD-10-PCS; CPT 43235; principal; 2024-09-04 11:30)
DX: R10.13 Epigastric pain (principal); K29.50 Unspecified chronic gastritis without bleeding; K44.9 Diaphragmatic hernia without obstruction or gangrene; K21.9 Gastro-esophageal reflux disease without esophagitis; R14.0 Abdominal distension (gaseous); I10 Essential (primary) hypertension; E11.9 Type 2 diabetes mellitus without complications; Z79.4 Long term (current) use of insulin; Z79.84 Long term (current) use of oral hypoglycemic drugs; Z79.85 Long-term (current) use of injectable non-insulin antidiabetic drugs; Z79.899 Other long term (current) drug therapy; F43.10 Post-traumatic stress disorder, unspecified; F10.90 Alcohol use, unspecified, uncomplicated; F11.91 Opioid use, unspecified, in remission; Z98.890 Other specified postprocedural states
CPT/HCPCS: 43239; 82947; 88305; 88313; 88342; J1100; J2003; J2250; J2704

== ENCOUNTER 2024-12-31 11:57 | Outpatient (REF) | payer OTHER, SELFPAY ==
--- OUTSIDE RECORDS SUMMARY | 2024-09-04 07:30 | XMS_ITS ---
Author Organization [facility] Address [address] [place] [id number] Care Team Providers Care Coat Room Attendant Name Role Phone Ernesto Estrada CNP Primary Care Provi wendy Cesario Gee Ceferino Unavailable [phone] REASON FOR VISIT abdominal pain Encounters Encounter Location Date Provider Diagnosis [facility] Outpatient [address] [place] [id number] 09/04/2024 Ceferino Gee Chronic gastritis K29.50 ; Hiatal hernia K44.9 and Gastro-esophageal reflux disease without esophagitis K21.9 Assessments Encounter Date Diagnosis (ICD Code) Assessment Notes Treatment Notes Treatment Clinical Notes Section Notes 09/04/2024 Chronic gastritis (ICD-10 - K29.50) 09/04/2024 Hiatal hernia (ICD-10 - K44.9) 09/04/2024 Gastro-esophagea l reflux disease without esophagitis (ICD-10 - K21.9) Plan Of Treatment Next Appt Details Provider Name:Ceferino Gee , 04/09/2025 08:40:00 AM, [address] [place] [address], [phone], Progress Notes * CHRIS AMBROSEDOB:1970 (54 yo M)Acc No.[id number]:09/04/2024 EGD/MAC Patient: Frederick DAVIDJUSTINECHRIS Provider: Gregory Gee MD :1970 A ge:54 Y S ex:Male Date:09/04/2024 Address:[address] [place] [address] [address] [id number] Pcp:Ernesto Estrada CNP Subjective: * Chief Complaints: * 1 . Abdominal pain. * Medical History: Objective: * Vitals: Assessment: * Assessment: 1. C hronic gastritis - K29.50 (Primary) 2 . H iatal hernia - K44.9 ? 3 . G gonzalo-esophageal reflux disease without esophagitis - K21.9 Plan: * Treatment: * Procedure Codes: 4 3239 UPPER GI ENDOSCOPY, BIOPSY, Modifiers: 22 * * The named appointment provid er may or may not be the originator of this progress note, and it is not deemed complete until electronically signed by the appointment provider. Sign off status: Pending * Provider: Gregory Gee MD Date: 0 09/04/2024 Generated for Camila rivera/Marivel/Renéitting on: 1 01:41 PM EDT
--- OUTSIDE RECORDS SUMMARY | 2024-12-30 05:40 | XMS_ITS ---
Author Organization [facility] Address [address] [place] [phone] Care Team Providers Care Shovel Engineer Name Role Phone Natalie SANTOS, Ernesto Oh Primary Care Provi wendy Unavailable Ceferino Gee Unavailable [phone] Ubaldo Brice, Aditya Unavailable [phone] REASON FOR VISIT gastr Encounters Encounter Location Date Provider Diagnosis [facility] [address] [place] [phone] 12/30/2024 Aditya Conner Jr Plan Of Treatment Next Appt Details Provider Name:Ceferino Gee , 04/09/2025 08:40:00 AM, [address] , [place], [place], [phone], Progress Notes * CHRIS AMBROSEDOB:1970 (54 yo M)Acc No.[id number]:12/30/2024 Progress Notes Patient: CHRIS GAMA Provider: Karri Conner MD :1970 A ge:54 Y S ex:Male Date:12/30/2024 Address:[address] [place] [address] Yumi GLASGOW AYADAretha [id number] Pcp:Ernesto Estrada CNP Subjective: * Chief Complaints: * 1 . Gastr. * Medical History: Objective: * Vitals: Assessment: Plan: * Treatment: * * The named appointment provid er may or may not be the originator of this progress note, and it is not deemed complete until electronically signed by the appointment provider. Sign off status: Pending * Provider: Karri Conner MD Date: 1 Generated for Camila rivera/Marivel/Panfilo on: 01:41 PM CAROLEET
--- OUTSIDE RECORDS SUMMARY | 2024-12-31 13:41 | XMS_ITS | Patient Health Record ---
Author Organization [facility] Address [address] [place] [address] Care Team Providers Care Closing Manager Name Role Phone Natalie SANTOS, Ernesto Oh Primary Care Provi wendy Unavailable Ceefrino Gee Unavailable [phone] Aditya Conner Jr Unavailable Allergies No Known Allergies Results Component Value Reference Range Notes Glucose, Whole Blood Reviewed date:09/04/2024 01:17:34 PM Interpretation: Performing Lab:[facility], [address] [place] [id number] Notes/Report: Glucose, Whole Blood 135 60-115 mg/dL METER # : [id number] Pathology (Not yet reviewed by provider) Interpretation: Performing Lab:[address] [id number] Notes/Report: Reason For Referral No Information Medications Medication SIG (Take, Route, Frequency, Duration) Notes Start Date End Date Status FLUoxetine HCl 40 MG 1 capsule Orally On ce a day for 30 day(s) 12/31/2024 Active OXcarbazepine ER 600 MG 1 tablet on an e mpty stomach Orally Once a day for 30 day(s) 12/31/2024 Active Labetalol HCl 100 MG 1 tablet Orally Twi ce a day for 30 day(s) 12/31/2024 Active Protonix 20 MG 1 tablet 1/2 to 1 ho ur before morning meal Orally Once a day for 30 day(s) 12/31/2024 Active Hyoscyamine Sulfate 0.125 MG 1 or 2 tabl ets Sublingual every 4 to 6 hours if needed for abdominal pain for 30 days 09/04/2024 Active Mounjaro 5 MG/0.5ML as directed Subcutaneous 12/31 Active Jardiance 10 MG 1 tablet Orally Once a day for 30 day(s) 12/31/2024 Active traZODone HCl 300 MG 1 tablet at bedtime Orally Once a day for 30 day(s) 12/31/2024 Active Lisdexamfetamine Dimesylate 30 MG 1 capsule in the morning Orally Once a day 12/31/2024 Active Doxazosin Mesylate ER 4 MG 1 tablet with breakfast Orally Once a day for 30 day(s) 12/31/2024 Active buPROPion HCl ER (Smoking Det) 150 MG 1 tablet in the morning Orally Once a day for 30 day(s) 12/31/2024 Active Immunizations Vaccine Route Administration Date Status Comme nts Influenza Unknown 01/01/2024 Administered Social History Tobacco Use: Social History Observation Description Date Details (start date - stop date) Never Smoker NA - NA Tobacco Control (Standard) Question Answer Notes Tobacco use: Nonsmoker AUDIT-C (Standard) Question Answer Notes Did you have a drink contain ing alcohol in the past year? Yes How often did you have a dri nk containing alcohol in the past year? 2 to 3 times a week (3 points) How many drinks did you have on a typical day when you were drinking in the past year? 1 or 2 drinks (0 point) How often did you have six o r more drinks on one occasion in the past year? Less than monthly (1 point) Points 4 Interpretation Positive Section Notes: EtOH abuse---reports dashaharriet maribel farmer since 12/2023 Problems Problem Type SNOMED Code ICD Code Onset Dates Problem Status W/U Status Risk Notes Problem Colon cancer screening (784238806) Colon cancer screening (Z12.11) Active confirmed Problem Diarrhea (60769147) Diarrhea (R19.7) Active confirmed Problem Gastroesophageal reflux disease (256057043) GERD (gastroesopha geal reflux disease) (K21.9) Active confirmed Problem Irritable bowel (64755193) Irritable bowel (K58.9) Active confirmed Vital Signs Temperature 97.8 degrees Fahrenheit 12/31/2024 Blood pressure diastolic 01 mm Hg 12/31/2024 Height 71 in 12/31/2024 Blood pressure systolic 001 mm Hg 12/31/2024 Weight 239.8 lbs 12/31/2024 BMI 33.44 kg/m2 12/31/2024 Procedures Procedure Date Ordered Date Performed Result Body Sit e COLONOSCOPY 12/31/2024 N/A UPPER GI ENDOSCOPY 09/03/2024 N/A Encounters Encounter Location Date Provider Diagnosis [facility] [address] [place] [phone] 09/04/2024 Ceferino Gee Chronic gastritis K29.50 ; Hiatal hernia K44.9 and Gastro-esophageal reflux disease without esophagitis K21.9 [facility] [address] [place] [phone] 12/31/2024 Ceferino Gee Colon cancer screening Z12.11 ; Diarrhea R19.7 ; GERD (gastroesophageal reflux disease) K21.9 and Irritable bowel K58.9 [facility] [address] [place] [phone] 09/03/2024 Ceferino Gee Epigastric abdominal pain R10.13 [facility] [address] [place] [phone] 09/04/2024 Ceferino Gee [facility] [address] [place] [phone] 09/04/2024 Ceferino Gee [facility] [address] [place] [phone] 09/08/2024 Ceferino Gee Assessments Encounter Date Diagnosis (ICD Code) Assessment Notes Treatment Notes Treatment Clinical Notes Section Notes 09/04/2024 Hiatal hernia (ICD-10 - K44.9) 09/04/2024 Chronic gastritis (ICD-10 - K29.50) 12/31/2024 Colon cancer screening (ICD-10 - Z12.11) Overall, Pablito appears quite well at the present time. We did review his upper endoscopy findings from August. At this point though symptoms have resolved and he continues to do well on his daily Protonix. I did advise him to continue that for his symptomatic relief of reflux. We did review that obviously careful diet and watching his weight will help with that issue as well. I did recommend a colonoscopy both for screening purposes as he has never had one, as well as for evaluation of his chronic loose bowel months. I advised him that we will be important to exclude anything such as microscopic colitis or inflammatory bowel disease. We did review the rationale for the colonoscopy in regard to colorectal cancer prevention. He was given the below instructions regarding adjustment of his medication for the procedure. The procedure will be done with monitored anesthesia care. Full consent is obtained for this, including risks of bleeding and perforation. In regard to his loose bowel movements I did recommend checking a celiac disease profile. I recommended he should continue his hyoscyamine as needed for abdominal cramps but he could also add Imodium either as needed or daily for the diarrhea. I did advise him to limit or avoid certain things such as dairy and/or caffeine as those might be exacerbating the diarrhea. Pablito was comfortable with this plan. Thank you again for allowing me to participate in Pablito's care. I shall continue to keep you advised of his progress. 12/31/2024 Diarrhea (ICD-10 - R19.7) Overall, Pablito appears quite well at the present time. We did review his upper endoscopy findings from August. At this point though symptoms have resolved and he continues to do well on his daily Protonix. I did advise him to continue that for his symptomatic relief of reflux. We did review that obviously careful diet and watching his weight will help with that issue as well. I did recommend a colonoscopy both for screening purposes as he has never had one, as well as for evaluation of his chronic loose bowel months. I advised him that we will be important to exclude anything such as microscopic colitis or inflammatory bowel disease. We did review the rationale for the colonoscopy in regard to colorectal cancer prevention. He was given the below instructions regarding adjustment of his medication for the procedure. The procedure will be done with monitored anesthesia care. Full consent is obtained for this, including risks of bleeding and perforation. In regard to his loose bowel movements I did recommend checking a celiac disease profile. I recommended he should continue his hyoscyamine as needed for abdominal cramps but he could also add Imodium either as needed or daily for the diarrhea. I did advise him to limit or avoid certain things such as dairy and/or caffeine as those might be exacerbating the diarrhea. Pablito was comfortable with this plan. Thank you again for allowing me to participate in Pablito's care. I shall continue to keep you advised of his progress. 09/03/2024 Epigastric abdominal pain (ICD-10 - R10.13) 09/04/2024 Gastro-esophage al reflux disease without esophagitis (ICD-10 - K21.9) 12/31/2024 GERD (gastroesophage al reflux disease) (ICD-10 - K21.9) Overall, Pablito appears quite well at the present time. We did review his upper endoscopy findings from August. At this point though symptoms have resolved and he continues to do well on his daily Protonix. I did advise him to continue that for his symptomatic relief of reflux. We did review that obviously careful diet and watching his weight will help with that issue as well. I did recommend a colonoscopy both for screening purposes as he has never had one, as well as for evaluation of his chronic loose bowel months. I advised him that we will be important to exclude anything such as microscopic colitis or inflammatory bowel disease. We did review the rationale for the colonoscopy in regard to colorectal cancer prevention. He was given the below instructions regarding adjustment of his medication for the procedure. The procedure will be done with monitored anesthesia care. Full consent is obtained for this, including risks of bleeding and perforation. In regard to his loose bowel movements I did recommend checking a celiac disease profile. I recommended he should continue his hyoscyamine as needed for abdominal cramps but he could also add Imodium either as needed or daily for the diarrhea. I did advise him to limit or avoid certain things such as dairy and/or caffeine as those might be exacerbating the diarrhea. Pablito was comfortable with this plan. Thank you again for allowing me to participate in Pablito's care. I shall continue to keep you advised of his progress. 12/31/2024 Irritable bowel (ICD-10 - K58.9) Use the Hyoscyamine as needed for abdominal cramps Use Imodium as needed for diarrhea Overall, Pablito appears quite well at the present time. We did review his upper endoscopy findings from August. At this point though symptoms have resolved and he continues to do well on his daily Protonix. I did advise him to continue that for his symptomatic relief of reflux. We did review that obviously careful diet and watching his weight will help with that issue as well. I did recommend a colonoscopy both for screening purposes as he has never had one, as well as for evaluation of his chronic loose bowel months. I advised him that we will be important to exclude anything such as microscopic colitis or inflammatory bowel disease. We did review the rationale for the colonoscopy in regard to colorectal cancer prevention. He was given the below instructions regarding adjustment of his medication for the procedure. The procedure will be done with monitored anesthesia care. Full consent is obtained for this, including risks of bleeding and perforation. In regard to his loose bowel movements I did recommend checking a celiac disease profile. I recommended he should continue his hyoscyamine as needed for abdominal cramps but he could also add Imodium either as needed or daily for the diarrhea. I did advise him to limit or avoid certain things such as dairy and/or caffeine as those might be exacerbating the diarrhea. Pablito was comfortable with this plan. Thank you again for allowing me to participate in Pablito's care. I shall continue to keep you advised of his progress. Plan Of Treatment Pending Test Test Name Order Date UPPER GI ENDOSCOPY 09/03/2024 COLONOSCOPY 12/31/2024 Transglutaminase Ab IgG 12/31/2024 Transglutaminase IgA 12/31/2024 Gliadin Ab Panel 12/31/2024 Endomysial IgA rflx Titer 12/31/2024 Pathology 09/04/2024 Next Appt Details Provider Name:Ceferino White Marlen , 04/09/2025 08:40:00 AM, [address] [place] [address] , [place], [place], [phone], Insurance Providers Payer Name Payer Address Payer Phone Subscriber Number Group Number Insured Name Patient Relationship to Insured Coverage Start Date Coverage End Date [facility] [address] [place], [place] [id number] ARNOL PABLITO Self - patient is the insured Medical (General) History Medical History History ICD Code DM HTN Bipolar PTSD ADD Depression/Anxiety Denies OH,CVA,Lung disease,renal disease EGD 08/2024--neg for Hpylori and Chaparro' s GERD Irritable bowel syndrome with predominan tly diarrhea Surgical History Surgery Date(Month/Year) Left knee Inguinal hernia on the left Left shoulder Appy Thumb has 3 pins 2024
--- OUTSIDE RECORDS SUMMARY | 2024-12-31 13:41 | XMS_ITS | Clinical Summary ---
Author Organization [facility] Address [address] [place] [phone] Phone Care Team Providers Care Crisis Intervention Counselor Name Role Phone Ernesto Estrada NP Primary Care Provid er Allergies No known active allergies Medications No known medications Social History Tobacco Use Types Packs/Day Years Used Date Smoking Tobacco: Never Assessed Education Answer Date Recorded Are you interested in more education? Not on grace e 06/11/2024 Are you concerned about learning? Not on file 06/11/2024 No 06/11/2024 No 06/11/2024 Digital Access Answer Date Recorded No 06/11/2024 No 06/11/2024 Reliable internet access at home? Not on file 06/11/2024 Device with a working camera? Not on file Intimate Partner Violence Answer Date R ecorded Are you denied basic needs s uch as food, clothing, or medical care? No 06/10/2024 In the past 12 months have y ou been in a relationship with a person who hurts, threatens, or tries to control you? No 06/10/2024 Are you denied basic needs s uch as food, clothing, or medical care? No 06/10/2024 In the past 12 months have y ou been in a relationship with a person who hurts, threatens, or tries to control you? No 06/10/2024 Sex and Gender Information Value Date Recorded Sex Assigned at Male 06/10/2024 8:16 PM EDT Legal Sex Male 6:51 PM EDT Gender Identity Male 06/10/2024 8:16 PM EDT Sexual Orientation Straight 06/10/2024 8: 16 PM EDT Last Filed Vital Signs Vital Sign Reading Time Taken Comments Blood Pressure 138/94 06/10/2024 11:00 PM EDT Pulse 82 06/10/2024 11:00 PM EDT Temperature 37.1 C (98.7 F) 06/10/2024 11:00 PM EDT Respiratory Rate 16 06/10/2024 11:00 PM EDT Oxygen Saturation 100% 06/10/2024 11:00 PM EDT Inhaled Oxygen Concentration - - Weight 113.4 kg (250 lb) 06/10/2024 6:57 PM EDT Height 182.9 cm (6') 06/10/2024 6:57 PM EDT Body Mass Index 33.91 06/10/2024 6:57 PM EDT Plan of Treatment Health Maintenance Due Date Last Done Comments Adult Td,Tdap Booster 1970 LIPID PANEL 1970 DEPRESSION SCREENING 1983 SMOKING Hx and SMOKELESS TOB ACCO SCREENING 07/26/1984 HEPATITIS C SCREENING 07/26/1989 HIV ONE-TIME SCREENING (18-6 5 YEARS) 07/26/1989 SCREENING FOR DIABETES 07/26/2006 COLOGUARD 07/26/2016 COLONOSCOPY 07/26/2016 COLORECTAL CANCER SCREENING 07/26/2016 FIT TEST 07/26/2016 FOBT 07/26/2016 SIGMOIDOSCOPY 07/26/2016 VIRTUAL COLONOSCOPY 07/26/2016 PNEUMOCOCCAL VACCINES (50+ y ears) (1 of 1 - PCV) 07/26/2021 ZOSTER VACCINES (1 of 2) 07/26/2021 INFLUENZA VACCINE (#1) 2024 COVID-19 VACCINE ( - 2023-2 5 season) 2024 HEPATITIS A VACCINES Aged Out No long er eligible based on patient's age to complete this topic HIB VACCINES Aged Out No longer eligi ble based on patient's age to complete this topic MENINGOCOCCAL VACCINES (ACWY) Aged Out No longer eligible based on patient's age to complete this topic MENINGOCOCCAL VACCINES (B) Aged Out N o longer eligible based on patient's age to complete this topic Medical Devices Not on file Insurance [employer] HMO POS EPO [facility] E[facility] E[facility] [place] Diaz PR [facility] E[facility] [place] Ninaandrew Diaz PR Jo [facility] Care Teams Crisis Intervention Counselor Relationship Specialty Start Date End Date Ernesto Estrada NP [address] [place] [phone] PCP - General Nurse Practitioner 06/10/24 Additional Source Comments The information contained in this document represents components of the legal health record. It is not the complete legal health record.[facility]
--- OUTSIDE RECORDS SUMMARY | 2024-12-31 13:41 | XMS_ITS | Clinical Summary ---
Author Organization [facility] Address [address] [place] [address] Care Team Providers Care Injection Molding Technician Name Role Phone Truman Brock MD Primary Care Provider [phone] Surgical History Surgery Date Site/Laterality Comments ESOPHAGOGASTRODUODENOSCOPY 12/30/06 PROCEDURE: NV EGD TRANSORAL BIOPSY SINGLE/MULTIPLE; COMMENT: r/o BE-bx:reflux esophagitis, gastritis-bx:mild chronic inflammation H. pylori negative. APPENDECTOMY 08/08 PROCEDURE: NV APPENDECTOMY VASECTOMY PROCEDURE: NV VASECTOMY UNI/BI SPX W/POSTOP SEMEN EXAMS HERNIA REPAIR PROCEDURE: HISTORICAL HERNIA REPAIR/ING; COMMENT: left, SHOULDER SURGERY PROCEDURE: HISTORICAL SHOULDER SURGERY; COMMENT: 2012 - left rot cuff and labrum OTHER SURGICAL HISTORY 06/15/2015 Right PROCEDURE: NV UNLISTED PROCEDURE ORBIT; COMMENT: Alloplastic implant for right orbital floor fracture. [facility] Dr. Santoyo MOLE REMOVAL 04/22/2018 PROCEDURE: HISTORICAL MOLE (REMOVAL OF); COMMENT: atypical mole, glabella OTHER SURGICAL HISTORY 06/05/2018 PROCEDURE: NV EXCISION PILONIDAL CYST/SINUS COMPLICATED; COMMENT: Dr Mccormick, [facility] KNEE ARTHROSCOPY W/ MENISCAL REPAIR Left PROCEDURE: NV ARTHROSCOPY KNEE W/MENISCUS RPR MEDIAL/LATERAL; COMMENT: [facility] TONSILLECTOMY PROCEDURE: HISTORICAL TONSILLECTOMY HAND SURGERY PROCEDURE: HISTORICAL HAND SURGERY; COMMENT: left trigger thumb [facility] Medical History Medical History Date Comments Heartburn 11/21/2005 DX:Heartburn Depressive disorder, not els ewhere classified 11/21/2005 DX:Depressive disorder, not elsewhere classified Temporomandibular joint diso rders, unspecified 11/21/2005 DX:Temporomandibular joint disorders, unspecified Alcohol abuse 05/23/2010 DX:Alcohol abuse Cocaine abuse ([facility] [place], [facility] V28) 05/23/2010 DX:Cocaine abuse ([facility]) Difficulty concentrating 10/14/2014 DX:Diff iculty concentrating Numbness of finger 10/14/2014 DX:Numbness o f finger Atypical chest pain 10/14/2014 DX:Atypical chest pain Hyperglycemia 03/31/2015 DX:Hyperglycemia DM (diabetes mellitus), type 2 with renal complications ([facility] V24, [facility] V28) 04/17/2016 DX:DM (diabetes mellitus), t ype 2 with renal complications ([facility]) Microalbuminuria 10/05/2020 DX:Microalbumin uria Alcohol use disorder, modera te, in sustained remission ([facility] V24, [facility] V28) 05/23/2010 DX:Alcohol use disorder, mod erate, in sustained remission ([facility]) Hypertension 08/21/2017 DX:Hypertension Severe obesity with body mas s index (BMI) of 35.0 to 39.9 with comorbidity ([facility] V24, [facility] V28) 08/21/2017 DX:Severe obesity with body mass index (BMI) of 35.0 to 39.9 with comorbidity ([facility]) Family History Medical History Relation Name Comments [...] - Td or Tdap) 04/28/2022 04/28/2012, 05/02/2005 Depression Screening 04/01/2024 COVID-19 Vaccine ( season) 2024 Influenza Vaccine (#1) 2024 0, 02/18/2018, 12/24/2016, Additional history exists RSV Immunization Adult Patients (1 - 1-dose 75+ series) 07/26/2046 HIB Vaccines Aged Out No longer eligi [...] age to complete this topic Care Teams Injection Molding Technician Relationship Specialty Start Date End Date Truman Brock MD [address] [place] [address] PCP - General Internal Medicine 11/02/20
--- OUTSIDE RECORDS SUMMARY | 2024-12-31 13:41 | XMS_ITS | Encounter Summary ---
Author Organization [facility] Address [address] [place] [address] [place] [phone] Phone Care Team Providers Care Research And Development Specialist Name Role Phone Ernesto Estrada NP Primary Care Provid er Encounter Details Date Type Department Care Team (Late st Contact Info) Description 06/10/2024 Procedure Pass [facility], Ct Scan - [address] [address] Social History Tobacco Use Types Packs/Day Years [...] Orientation Straight 06/10/2024 8: 16 PM EDT documented as of this encounter Functional Status * Calculated C-SSRS Risk Score (Lifetime/Recent) Answer Date of Assessment Author No Risk Indicated 06/10/2024 6:57 PM EDT Alona Sanchez RN * [place] Suicide Severity Rating Scale (Screener/Recent Self-Report) Question Answer Date of Assessment Author 1. Wish to be (Past 1 Month) No 06/10/2024 6:57 PM EDT Alona Sanchez RN 2. Non-Specific Active Suici cristhian Thoughts (Past 1 Month) No 06/10/2024 6:57 PM EDT Oly Sanchez cia, RN 6. Suicidal Behavior (Lifetime) No 6:57 PM EDT Alona Sanchez RN documented as of this encounter Plan of Treatment Not on file documented as of this encounter Visit Diagnoses Not on filedocumented in this encounter Care Teams Research And Development Specialist Relationship Specialty Start Date End Date Ernesto Estrada NP [address] [place] [id number] PCP - General Nurse Practitioner 06/10/24 documented as of this encounter Additional Source Comments The information contained in this document represents components of the legal health record. It is not the complete legal health record.[facility]
--- OUTSIDE RECORDS SUMMARY | 2024-12-31 13:41 | XMS_ITS | Encounter Summary ---
Author Organization [facility] Address [address] [place] [address] [place] [phone] Phone Care Team Providers Care Billboard Mechanic Name Role Phone Ernesto Estrada NP Primary Care Provid er Encounter Details Date Type Department Care Team (Late st Contact Info) Description 06/10/2024 Procedure Pass [facility], Ct Scan - [address] [address] Social History Tobacco Use Types Packs/Day Years [...] 6:57 PM EDT Alona Sanchez RN * [place] Suicide Severity Rating Scale (Screener/Recent Self-Report) Question [...] on filedocumented in this encounter Care Teams Billboard Mechanic Relationship Specialty Start Date End Date Ernesto Estrada NP [address] [place] [id number] PCP - General Nurse Practitioner 06/10/24 documented as of this encounter Additional Source Comments The information contained in this document represents components of the legal health record. It is not the complete legal health record.[facility]
--- OUTSIDE RECORDS SUMMARY | 2024-12-31 13:41 | XMS_ITS | Clinical Summary ---
Author Organization [facility] Address [address] [address] Care Team Providers Care [employer] Membership Advisors Name Role Phone Gay Sharma MD Primary Care Provider [phone] Allergies No known active allergies Medications Buprenorphine HCl-Naloxone HCl (SUBOXONE) 8-2 MG per SL film PL[address] 1 STRIP UNDER THE TONGUE ONCE DAILY DOSE CHANGE 1 Active Trulicity 1.5 MG/0.5ML solution pen-injector Inject 1 Dose under the skin per week 1 Active escitalopram (LEXAPRO) 20 MG tablet Take 1 tablet by mouth 1 (one) time each day 1 Active fluticasone (FLONASE) 50 MCG/ACT nasal spray Administer 1 spray into each nostril 1 (one) time each day 1 Active metFORMIN (GLUCOPHAGE) 500 MG tablet Take 2 tablets by mouth 2 (two) times a day 1 Active pantoprazole (PROTONIX) 40 MG EC tablet Take 40 mg by mouth 1 (one) time each day 1 Active traZODone (DESYREL) 100 MG tablet Take 1 tablet by mouth every evening and at bedtime 1 Active labetalol (NORMODYNE) 200 MG tablet Take 1 tablet (200 mg total) by mouth 2 (two) times a day 60 tablet 5 1 Active spironolactone (ALDACTONE) 50 MG tablet Take 1 tablet (50 mg total) by mouth 1 (one) time each day 30 tablet 5 1 Active Active Problems Problem Noted Date Diagnosed Date Essential (primary) hypertension 07/25/2020 Chest pain 07/25/2020 Type 2 diabetes mellitus without complication Gastroesophageal reflux disease 07/25/2020 Polysubstance abuse 07/25/2020 Anxiety 07/25/2020 Social History Tobacco Use Types Packs/Day Years Used Date Smoking Tobacco: Never Smokeless Tobacco: Never Alcohol Use Standard Drinks/Week Comments Yes 0 (1 standard drink = 0.6 oz pur e alcohol) Sex and Gender Information Value Date Recorded Sex Assigned at Not on file Legal Sex Male 10:48 AM EDT Gender Identity Not on file Sexual Orientation Not on file Last Filed Vital Signs Vital Sign Reading Time Taken Comments Blood Pressure 130/80 07/25/2020 3:26 PM EDT Pulse 78 07/25/2020 3:26 PM EDT Temperature - - Respiratory Rate - - Oxygen Saturation - - Inhaled Oxygen Concentration - - Weight 122 kg (268 lb 12.8 oz) 07/25/2020 3:26 P M EDT Height - - Body Mass Index - - Plan of Treatment Health Maintenance Due Date Last Done Comments Hepatitis B Vaccine (1 of 3 - 19+ 3-dose series) 07/26 Diabetes: Ophthalmology Exam 07/25/2020 Diabetes: Pedal Pulse Checked 07/25/2020 Diabetes: Sensory Foot Exam 07/25/2020 Diabetes: Visual Foot Exam 07/25/2020 Colorectal Cancer Screening: Annual FOBT 07/26/2020 Colorectal Cancer Screening: Colonoscopy 07/26/2020 Colorectal Cancer Screening: Sigmoidoscopy 07/26/2020 Diabetes: Hemoglobin A1C 10/24/2020 07/25/2020 Pneumococcal Vaccine: 50+ Years (1 of 1 - PCV) 022 Influenza Vaccine (#1) 2024 Procedures Procedure Name Priority Date/Time Associated Diagnosis Comments HEMOGLOBIN A1C Routine 07/25/2020 3:50 PM EDT from Last 3 Months or Most Recently Relevant to Health Maintenance Results * (ABNORMAL) Hemoglobin A1c (07/25/2020 3:50 PM EDT) Hemoglobin A1C 7.2(H) (4.0-5.6) % [facility] Comment: MONITORING: In known diabetic patients, hemoglobin A1c targets should be discussed with health care provider. DIAGNOSTIC USE: The [place] Diabetes Association (ADA) and the World Health Organization (WHO) recommend the use of HbA1c to diagnose diabetes using a threshold of 6.5%. Patients who have an HbA1c between 5.7% and 6.4% are considered at increased risk for developing diabetes in the future. CAUTION: Falsely low HbA1c results may be observed in patients with hemolytic anemia, homozygous forms of abnormal hemoglobin (e.g. SS, CC, SC), , recent blood loss or hemoglobin F greater than 7%. Fructosamine may be used as an alternate test in these cases. REFERENCE: ADA: Standards of Medical Care in Diabetes 2020, The Journal of Clinical and Applied Research and Education Volume 43, Supplement 1 Testing performed or reported by [facility] [employer], a Service of [facility], [address] [place] [id number] Maggy Weir MD, Tile Setter Apprentice 07/25/2020 3:50 PM EDT 07/25/2020 3:54 PM EDT David Valero MD LAB BLOOD ORDERABLES Sarah Beth l Result [facility] from Last 3 Months or Most Recently Relevant to Health Maintenance Insurance [employer] Care Teams [employer] Membership Advisors Relationship Specialty Start Date End Date Gay Sharma MD PCP - General Internal Medicine 07/25/20
[2025-01-01 21:33] LABS: Transglutaminase Ab IgG <1.0 U/mL
== END 2024-12-31 11:58 | disposition home or self-care (01) ==
LOC: HO.LAB 11:57
PROVIDERS: PCP Nurse Practitioner Family; Visit Provider Internal Medicine
DX: R19.7 Diarrhea, unspecified (principal)
CPT/HCPCS: 36415; 86231; 86258; 86364